=== PATIENT | female | born 1950 | race Caucasian/White ===

== ENCOUNTER → 2016-08-09 | Outpatient (CLI) | payer OTHER ==
[~2016-08-09] MED LIST: CALC600T9 PO; GEMF600T PO; LPT/40 PO; LSN/10125 PO; SOMNAPURE PO
[2016-08-09 09:35] LABS: BASO % 0.8 %; BASO ABS # 0.06 K/uL (0-0.2); COMPLETE YES; EOS % 4.3 %; HEMATOCRIT 37.9 % (37-47); IG% 0.3 %; LYMPH % 40.5 %; LYMPH ABS # 3.02 K/uL (1.2-3.4); MEAN CORPUSCULAR HEMOGLOBIN 32.1 pg (25-34); MEAN CORPUSCULAR HGB CONC 35.6 g/dl (32-36); MEAN PLATELET VOLUME 9.3 fL (7.4-10.4); MONO % 10.2 %; NEUT % 43.9 %; PLATELET COUNT 397 K/uL (130-400); RED BLOOD COUNT 4.21 M/uL (4.2-5.4); WHITE BLOOD COUNT 7.45 K/uL (4.8-10.8)
[2016-08-09 09:49] LABS: ALT/SGPT 49 U/L (12-78); AST/SGOT 34 U/L (15-37); BLOOD UREA NITROGEN 14 mg/dl (7-18); BUN/CREATININE RATIO 17.7 (10-20); CALCIUM 9.2 mg/dl (8.5-10.1); CARBON DIOXIDE 26 mmol/L (21-32); CHLORIDE 101 mmol/L (98-107); GLUCOSE 114 mg/dl (70-99); POTASSIUM 3.8 mmol/L (3.5-5.1); SODIUM 136 mmol/L (136-145)
[2016-08-09 09:53] LABS: CHOLESTEROL 181 mg/dl (0-200); CHOLESTEROL/HDL RATIO 2.7; HDL CHOLESTEROL 67 mg/dl; LDL CHOLESTEROL CALCULATED 86 mg/dl; TRIGLYCERIDES 141 mg/dl (0-150); VERY LOW DENSITY LIPOPROT CALC 28 mg/dl
[2016-08-09 10:08] LABS: ESTIMATED AVERAGE GLUCOSE 123 mg/dl; HA1C FLAG Normal (Normal)
--- NOTE | 2016-08-15 11:41 | CODING QUERY MEDICAL NECESSITY ---
SUPPORTING DIAGNOSIS NEEDED A supporting diagnosis is required for the test/procedure performed on this patient in order for us to be reimbursed by the patient's insurance. Please provide a supporting diagnosis for the following test/procedure listed below next to the test name along with your signature. *If there is no additional diagnosis for this patient that would support the following test/procedure please document that below next to the test/procedure. Test(s)/Procedure(s) that require a supporting diagnosis: DOS 08/09 * Hba1c DIAGNOSIS: Provider Signature: Date: Thank you Rosemarie Soria [facility] Information Management Once completed, please kindly fax back to [phone] For questions please call [phone]
== END | disposition home or self-care (01) ==
LOC: C.LAB1850 07:28
PROVIDERS: ATTEND Internal Medicine
DX: E78.5 Hyperlipidemia, unspecified (principal); R73.9 Hyperglycemia, unspecified

== ENCOUNTER → 2017-02-08 | Outpatient (CLI) | payer OTHER ==
[2017-02-08 09:36] LABS: BASO % 0.9 %; BASO ABS # 0.06 K/uL (0-0.2); COMPLETE YES; EOS % 4.4 %; IG% 0.2 %; LYMPH % 35.4 %; LYMPH ABS # 2.24 K/uL (1.2-3.4); MEAN CELL VOLUME 92.2 fL (80-100); MEAN CORPUSCULAR HEMOGLOBIN 31.1 pg (25-34); MEAN CORPUSCULAR HGB CONC 33.7 g/dl (32-36); MEAN PLATELET VOLUME 8.9 fL (7.4-10.4); NEUT % 47.1 %; PLATELET COUNT 367 K/uL (130-400); RED BLOOD COUNT 4.12 M/uL (4.2-5.4); WHITE BLOOD COUNT 6.33 K/uL (4.8-10.8)
[2017-02-08 09:47] LABS: ALT/SGPT 61 U/L (12-78); AST/SGOT 42 U/L (15-37); BLOOD UREA NITROGEN 11 mg/dl (7-18); BUN/CREATININE RATIO 15.4 (10-20); CALCIUM 8.9 mg/dl (8.5-10.1); CARBON DIOXIDE 25 mmol/L (21-32); CHLORIDE 103 mmol/L (98-107); CHOLESTEROL 197 mg/dl (0-200); GLUCOSE 101 mg/dl (70-99); POTASSIUM 3.6 mmol/L (3.5-5.1); SODIUM 138 mmol/L (136-145)
[2017-02-08 09:57] LABS: HDL CHOLESTEROL 65 mg/dl; LDL CHOLESTEROL CALCULATED 103 mg/dl; TRIGLYCERIDES 147 mg/dl (0-150); VERY LOW DENSITY LIPOPROT CALC 29 mg/dl
[2017-02-08 10:02] LABS: ESTIMATED AVERAGE GLUCOSE 128 mg/dl; HA1C FLAG Normal (Normal)
--- NOTE | 2017-02-14 10:28 | CODING QUERY MEDICAL NECESSITY ---
SUPPORTING DIAGNOSIS NEEDED Dr. Esparza, A supporting diagnosis is required for the test/procedure performed on this patient in order for us to be reimbursed by the patient's insurance. Please provide a supporting diagnosis for the following test/procedure listed below next to the test name along with your signature. *If there is no additional diagnosis for this patient that would support the following test/procedure please document that below next to the test/procedure. Test(s)/Procedure(s) that require a supporting diagnosis: * [id number] GLYCATED HEMOGLOBIN DIAGNOSIS: DATE OF SERVICE: 02/08/17 Provider Signature: Date: Thank you Iain Terry [facility] Information Management Once completed, please kindly fax back to [phone] For questions please call [phone]
== END | disposition home or self-care (01) ==
LOC: C.LAB1850 07:54
PROVIDERS: ATTEND Internal Medicine
DX: E78.5 Hyperlipidemia, unspecified (principal); R73.9 Hyperglycemia, unspecified

== ENCOUNTER → 2017-02-27 | Outpatient (CLI) | payer OTHER ==
--- NOTE | 2017-02-27 16:13 | MAMMOGRAPHY REPORT ---
BILATERAL DIGITAL SCREENING MAMMOGRAM TOMOSYNTHESIS WITH CAD: 02/27/2017 CLINICAL HISTORY: Routine screening. Patient has no complaints. TECHNIQUE: Breast tomosynthesis in addition to standard 2D mammography was performed. Current study was also evaluated with a Computer Aided Detection (CAD) system. COMPARISON: Comparison is made to exams dated: 11/13/2015 mammogram, 11/04/2015 mammogram, 09/24/2013 ma mmogram, 12/28/2011 mammogram, 02/22/2010 mammogram, and 03/14/2006 mammogram - [facility] ter. BREAST COMPOSITION: The tissue of both breasts is heterogeneously dense, which may obscure small mas ses. FINDINGS: No suspicious masses, calcifications, or areas of architectural distortion are noted in ei ther breast. There has been no significant interval change compared to prior exams. IMPRESSION: ACR BI-RADS CATEGORY 1: NEGATIVE There is no mammographic evidence of malignancy. A 1 year screening mammogram is recommended. The pa tient will receive written notification of the results. Approximately 10% of breast cancers are not detected with mammography. A negative mammographic report should not delay biopsy if a clinically suggestive mass is present. Sharron Raymond M.D. ah/:02/27/2017 15:33:42 Dry Wall Installations Mechanic: Opal PULLIAM(R)(M), [facility] letter sent: Normal 1/2 BI-RADS Code: ACR BI-RADS Category 1: Negative
== END | disposition home or self-care (01) ==
LOC: C.MAMM 11:27
PROVIDERS: ATTEND Obstetrics & Gynecology
DX: Z12.31 Encounter for screening mammogram for malignant neoplasm of breast (principal)

== ENCOUNTER → 2017-07-25 | Day surgery (SDC) | payer OTHER ==
[~2017-07-25] VITALS: Ht 165.1 cm; Wt 56.8 kg
[~2017-07-25] MED LIST changes: +LIDOCAINE HCL 2% 2 ML VIAL (20MG/ML) ONE; +PROPOFOL IV EMULSION 10 MG/ML 20 ML VIAL IV ONE; +SODIUM CHLORIDE 0.9% 500ML 500 ML IV ONE
[2017-07-25 09:22] VITALS: Ht 165.1 cm; Wt 56.8 kg
--- NOTE | 2017-07-25 10:24 | Endo History and Physical ---
History & Physical Date of Service: Jul 25, 2017. Chief Complaint: FAMILY HISTORY COLON CA BROTHER Referring Physician: DR. DORANTES History of Present Illness 66 yo CF who presents for colonoscopy secondary to family history of colon cancer (brother). Past Surgical History Hx Cardiac Surgery: No Hx Internal Defibrillator: No Hx Pacemaker: No Hx Abdominal Surgery: No Hx of Implantable Prosthesis: No Hx Post-Op Nausea and Vomiting: No Hx Cancer Surgery: No Hx Thoracic Surgery: No Hx Orthopedic: No Hx Urinary Tract Surgery: Yes (BLADDER TACK) Family History Colon CA Social History Smoking Status: Never Smoker Hx Substance Use: No Hx Alcohol Use: No Allergies Coded Allergies: No Known Allergies (Verified , 07/25/17) Current Medications Reported Home Medications Medications Dose Route/Sig Max Daily Dose Days Date Category [Somnapure] 1 Tab PO HS PRN 07/17/17 Reported Calcium + D (Calcium Carbonate-Vitamin D) 1 Tab Tab 1 Tab PO DAILY 07/17/17 Reported Lisinopril/Hctz 05/18.5 Mg (HCTZ/Lisinopril) 1 Ea Tab 1 Tab PO HS 07/17/17 Reported Lopid (Gemfibrozil) 600 Mg Tab 600 Mg PO BID 07/17/17 Reported Lipitor (Atorvastatin) 40 Mg Tab 40 Mg PO HS 07/17/17 Reported Vital Signs Weight (Kilograms): 56.82 Height (Feet): 5 Height (Inches): 5 Date Time Temp Pulse Resp B/P (MAP) Pulse Ox O2 Delivery O2 Flow Rate FiO2 07/25/17 09:30 36.8 85 16 149/77 (101) 98 Room Air Physical Exam General Appearance: WD/WN, no apparent distress Respiratory/Chest: Auscultation: breath sounds normal Cardiovascular: Heart Auscultation: RRR Abdomen: Bowel Sounds: normal Inspection & Palpation: soft, non-distended, no tenderness, guarding & rebound Assessment and Plan Assessment: 66 yo CF who presents for colonoscopy secondary to family history of colon cancer (brother). Plan: Proceed with colonoscopy.
--- NOTE | 2017-07-25 11:07 | GI REPORT ---
Procedure Date: 07/25/2017 10:29 AM Procedure: Colonoscopy Indications: Family history of colon cancer in a first-degree relative Medicines: Monitored Anesthesia Care Complications: No immediate complications. Estimated Blood Loss: Estimated blood loss: none. Procedure: Pre-Anesthesia Assessment: - Prior to the procedure, a History and Physical was performed, and patient medications and allergies were reviewed. The patient's tolerance of previous anesthesia was also reviewed. The risks and benefits of the procedure and the sedation options and risks were discussed with the patient. All questions were answered, and informed consent was obtained. Prior Anticoagulants: The patient has taken no previous anticoagulant or antiplatelet agents. ASA Grade Assessment: II - A patient with mild systemic disease. After reviewing the risks and benefits, the patient was deemed in satisfactory condition to undergo the procedure. After I obtained informed consent, the scope was passed under direct vision. Throughout the procedure, the patient's blood pressure, pulse, and oxygen saturations were monitored continuously. The scope was introduced through the anus and advanced to the terminal ileum. The colonoscopy was performed without difficulty. The patient tolerated the procedure well. The quality of the bowel preparation was good. The terminal ileum, ileocecal valve, appendiceal orifice, and rectum were photographed. Findings: The perianal and digital rectal examinations were normal. A 4 mm polyp was found in the sigmoid colon. The polyp was sessile. The polyp was removed with a hot snare. Resection and retrieval were complete. Non-bleeding internal hemorrhoids were found during retroflexion. The hemorrhoids were small. Impression: - One 4 mm polyp in the sigmoid colon, removed with a hot snare. Resected and retrieved. - Non-bleeding internal hemorrhoids. Recommendation: - Resume previous diet. - Continue present medications. - Repeat colonoscopy for surveillance based on pathology results. - Return to primary care physician as previously scheduled. Alexandru Wilder DO 07/25/2017 11:07:13 AM This report has been signed electronically. Note Initiated On: 07/25/2017 10:29 AM I attest to the content of the Intraoperative Record and orders documented therein, exceptions below
--- NOTE | 2017-07-25 11:08 | Discharge Instructions ---
Endoscopy Patient Instructions Date / Procedure(s) Performed Jul 25, 2017. Colonoscopy Allergy Information Coded Allergies: No Known Allergies (Verified , 07/25/17) Discharge Date / Findings Jul 25, 2017. Colon polyp Internal hemorrhoids Medication Instructions OK to resume all medications today as prescribed Reported Home Medications Medications Dose Route/Sig Max Daily Dose Days Date Category [Somnapure] 1 Tab PO HS PRN 07/17/17 Reported Calcium + D (Calcium Carbonate-Vitamin D) 1 Tab Tab 1 Tab PO DAILY 07/17/17 Reported Lisinopril/Hctz 05/18.5 Mg (HCTZ/Lisinopril) 1 Ea Tab 1 Tab PO HS 07/17/17 Reported Lopid (Gemfibrozil) 600 Mg Tab 600 Mg PO BID 07/17/17 Reported Lipitor (Atorvastatin) 40 Mg Tab 40 Mg PO HS 07/17/17 Reported Provider Instructions Activity Restrictions - No exercising or heavy lifting for 24 hours. - Do not drink alcohol the day of the procedure. - Do not drive a car or operate machinery until the day after the procedure. - Do not make any important decisions or sign important papers in 24 hours after the procedure. Following Day: - Return to full activity which may include returning to work/school. Diet Start your diet with liquids and light foods (jello, soup, juice, toast). Then eat your usual diet if not nauseated. Treatment For Common After Affects For mild abdominal pain, bloating, or excessive gas: - Rest - Eat lightly - Lie on right side Follow-Up Information Follow-up with DR. DORANTES as scheduled Anesthesia Information What You Should Know You have had a procedure that required some medicine to reduce anxiety and discomfort. This treatment is called moderate sedation. After receiving the treatment, you may be sleepy, but you will be able to breathe on your own. The effects of the treatment may last for several hours. Follow these instructions along with Activity/Diet recommendations noted above: * Do NOT do anything where dizziness or clumsiness would be dangerous. * Rest quietly at home today, then you can be up and about tomorrow. * Have a responsible person stay with you the rest of today. * You may have had an I.V. today. If so, you may take the dressing off later today. Recommendations Call your doctor if: * Trouble breathing * Continuous vomiting for more than 24 hours * Temperature above 101 degrees * Severe abdominal pain or bloating * Pain not relieved by pain medicine ordered * There is increased drainage or redness from any incision * A large amount of rectal bleeding greater than 2-3 tablespoons. (If you had a polyp/s removed or have hemorrhoids, a small amount of blood - from the rectum is to be expected.) * You have any unanswered questions or concerns. IN THE EVENT OF A SERIOUS EMERGENCY, GO TO THE NEAREST EMERGENCY ROOM Your discharge instructions were prepared by provider Alexandru Wilder. Patient Instructions Signature Page Keesha Anna Patient (or Guardian) Signature/Date: I have read and understand the instructions given to me by my caregivers. Caregiver/RN/Doctor Signature/Date: The above-named patient and/or guardian has received patient instructions on this date. + Original Patient Signature Page (only) stays with chart. Please make copy for patient.
[2017-07-25 11:25] VITALS: BP 152/88; PULSE 81; O2SAT 100
--- NOTE | 2017-07-25 11:33 | Anesthesiology Progress Note ---
Anesthesia Post Op Note Date & Time Jul 25, 2017 at 11:33 Vital Signs Pain Intensity: 0 Vital Signs Past 12 Hours Date Time Temp Pulse Resp B/P (MAP) Pulse Ox O2 Delivery O2 Flow Rate FiO2 07/25/17 11:25 81 20 152/88 (109) 100 Room Air 07/25/17 11:10 81 20 139/75 (96) 100 Room Air 07/25/17 10:57 80 18 120/56 (77) 100 Room Air 07/25/17 09:30 36.8 85 16 149/77 (101) 98 Room Air Notes Mental Status: alert / awake / arousable, participated in evaluation Pt Amnestic to Procedure: Yes Nausea / Vomiting: adequately controlled Pain: adequately controlled Airway Patency, RR, SpO2: stable & adequate BP & HR: stable & adequate Hydration State: stable & adequate Anesthetic Complications: no major complications apparent
== END | disposition home or self-care (01) ==
LOC: C.GI 09:04
PROVIDERS: ATTEND Internal Medicine
DX: Z12.11 Encounter for screening for malignant neoplasm of colon (principal); Z83.71 Family history of colonic polyps; D12.5 Benign neoplasm of sigmoid colon; K64.8 Other hemorrhoids; Z80.0 Family history of malignant neoplasm of digestive organs; I10 Essential (primary) hypertension; E78.5 Hyperlipidemia, unspecified; E11.9 Type 2 diabetes mellitus without complications; F41.9 Anxiety disorder, unspecified; F32.9 Major depressive disorder, single episode, unspecified

== ENCOUNTER → 2017-08-22 | Outpatient (CLI) | payer OTHER ==
[~2017-08-22] MED LIST changes: -LIDOCAINE HCL 2% 2 ML VIAL (20MG/ML) ONE; -PROPOFOL IV EMULSION 10 MG/ML 20 ML VIAL IV ONE; -SODIUM CHLORIDE 0.9% 500ML 500 ML IV ONE
[2017-08-22 09:46] LABS: BASO % 0.6 %; BASO ABS # 0.05 K/uL (0-0.2); EOS % 1.5 %; EOS ABS # 0.12 K/uL (0-0.5); HEMATOCRIT 40.7 % (37-47); HEMOGLOBIN 13.7 g/dL (12.0-16.0); IG# 0.04 K/uL (0.00-0.02); LYMPH % 30.1 %; MEAN CELL VOLUME 92.7 fL (80-100); MEAN CORPUSCULAR HEMOGLOBIN 31.2 pg (25-34); MEAN CORPUSCULAR HGB CONC 33.7 g/dl (32-36); MEAN PLATELET VOLUME 9.3 fL (7.4-10.4); MONO % 11.5 %; MONO ABS # 0.92 K/uL (0.11-0.59); NEUT % 55.8 %; NEUT ABS # 4.45 K/uL (1.4-6.5); PLATELET COUNT 424 K/uL (130-400); RED CELL DISTRIBUTION WIDTH CV 12.5 % (11.5-14.5); RED CELL DISTRIBUTION WIDTH SD 42.3 fL (36.4-46.3); WHITE BLOOD COUNT 7.98 K/uL (4.8-10.8)
[2017-08-22 10:04] LABS: ALT/SGPT 48 U/L (12-78); AST/SGOT 39 U/L (15-37); BLOOD UREA NITROGEN 17 mg/dl (7-18); CALCIUM 9.8 mg/dl (8.5-10.1); CARBON DIOXIDE 25 mmol/L (21-32); CHOLESTEROL 183 mg/dl (0-200); CREATININE 0.67 mg/dl (0.60-1.20); GLUCOSE 119 mg/dl (70-99); SODIUM 135 mmol/L (136-145)
[2017-08-22 10:07] LABS: HEMOGLOBIN A1C 5.8 % (4.5-5.6); LDL CHOLESTEROL CALCULATED 91 mg/dl
== END | disposition home or self-care (01) ==
LOC: C.LAB1850 08:17
PROVIDERS: ATTEND Internal Medicine
DX: E78.5 Hyperlipidemia, unspecified (principal)

== ENCOUNTER → 2018-02-23 | Outpatient (CLI) | payer OTHER ==
[2018-02-23 09:29] LABS: BASO % 1.2 %; BASO ABS # 0.08 K/uL (0-0.2); EOS % 3.2 %; EOS ABS # 0.22 K/uL (0-0.5); HEMATOCRIT 36.3 % (37-47); HEMOGLOBIN 12.7 g/dL (12.0-16.0); IG# 0.02 K/uL (0.00-0.02); LYMPH % 26.7 %; LYMPH ABS # 1.85 K/uL (1.2-3.4); MEAN CELL VOLUME 89.2 fL (80-100); MEAN CORPUSCULAR HEMOGLOBIN 31.2 pg (25-34); MEAN PLATELET VOLUME 8.7 fL (7.4-10.4); MONO ABS # 0.76 K/uL (0.11-0.59); NEUT % 57.6 %; NEUT ABS # 3.99 K/uL (1.4-6.5); PLATELET COUNT 414 K/uL (130-400); RED CELL DISTRIBUTION WIDTH CV 12.7 % (11.5-14.5); RED CELL DISTRIBUTION WIDTH SD 41.1 fL (36.4-46.3); WHITE BLOOD COUNT 6.92 K/uL (4.8-10.8)
[2018-02-23 09:53] LABS: ALT/SGPT 47 U/L (12-78); AST/SGOT 36 U/L (15-37); BLOOD UREA NITROGEN 15 mg/dl (7-18); CALCIUM 9.1 mg/dl (8.5-10.1); CARBON DIOXIDE 27 mmol/L (21-32); CHOLESTEROL 137 mg/dl (0-200); CREATININE 0.69 mg/dl (0.60-1.20); GLUCOSE 101 mg/dl (70-99); LDL CHOLESTEROL CALCULATED 63 mg/dl; POTASSIUM 3.4 mmol/L (3.5-5.1); SODIUM 131 mmol/L (136-145)
[2018-02-23 10:25] LABS: HEMOGLOBIN A1C 5.8 % (4.5-5.6)
== END | disposition home or self-care (01) ==
LOC: C.LAB1850 07:20
PROVIDERS: ATTEND Internal Medicine
DX: E78.5 Hyperlipidemia, unspecified (principal)

== ENCOUNTER → 2018-03-14 | Outpatient (CLI) | payer OTHER ==
--- NOTE | 2018-03-14 13:38 | MAMMOGRAPHY REPORT ---
BILATERAL DIGITAL SCREENING MAMMOGRAM TOMOSYNTHESIS WITH CAD: 03/14/2018 CLINICAL HISTORY: Routine screening. Patient has no complaints. TECHNIQUE: The study was acquired using full field digital technology and interpreted from soft copy. Breast tomosynthesis in addition to standard 2D mammography was performed. Current study was also ev aluated with a Computer Aided Detection (CAD) system. COMPARISON: Comparison is made to exams dated: 02/27/2017 mammogram, 11/13/2015 mammogram, 11/04/2015 ma mmogram, 11/13/2015 ultrasound, 09/24/2013 mammogram, and 12/28/2011 mammogram - [facility]. BREAST COMPOSITION: The tissue of both breasts is heterogeneously dense, which may obscure small mass es. FINDINGS: There is a 5 mm nodular asymmetry in the inferior middle one third of the right breast on t he MLO view, thought to project immediately on the CC view. A 10 mm asymmetry in the lateral, middle one third of the right breast thought to project below the posterior nipple line on the MLO view. S pot compression tomosynthesis views and possible ultrasound are recommended for both asymmetries in t he right breast. There are a few scattered benign round and rim calcifications in the right breast. No other suspiciou s mass, asymmetry architectural distortion or cluster of microcalcifications is seen bilaterally. IMPRESSION: ACR BI-RADS CATEGORY 0: INCOMPLETE EVALUATION: NEED ADDITIONAL IMAGING EVALUATION The right breast asymmetries need additional imaging evaluation. The patient will be called to schedule an appointment. Some breast cancers are not detected with mammography. A negative mammographic report should not ebony y biopsy if a clinically suggestive mass is present. Ermelinda Shanks M.D. ay/:03/14/2018 10:57:27 Manufacturing Laborer: RT Madisyn(R)(M), [facility] letter sent: Addl Imaging 0 BI-RADS Code: ACR BI-RADS Category 0: Incomplete Evaluation: Need Additional Imaging Evaluation
== END | disposition home or self-care (01) ==
LOC: C.MAMM 09:47
PROVIDERS: ATTEND Obstetrics & Gynecology
DX: Z12.31 Encounter for screening mammogram for malignant neoplasm of breast (principal); R92.8 Other abnormal and inconclusive findings on diagnostic imaging of breast

== ENCOUNTER → 2018-03-21 | Outpatient (CLI) | payer OTHER ==
--- NOTE | 2018-03-22 15:42 | MAMMOGRAPHY REPORT ---
UNILATERAL RIGHT DIGITAL DIAGNOSTIC MAMMOGRAM TOMOSYNTHESIS AND TARGETED RIGHT ULTRASOUND: 03/21/2018 CLINICAL HISTORY: 67-year-old woman called back from screening mammography for right breast nodular a symmetries. TECHNIQUE: Spot compression tomosynthesis right CC and MLO views were obtained. COMPARISON: Comparison is made to exams dated: 03/14/2018 mammogram, 02/27/2017 mammogram, 11/13/2015 herbert mogram, 11/04/2015 mammogram, 12/28/2011 mammogram, and 02/22/2010 mammogram - [facility]. BREAST COMPOSITION: There are scattered areas of fibroglandular density in right breast. FINDINGS: The spot compression tomosynthesis views of the right breast demonstrate a U-shaped partial ly circumscribed 10 mm mass in the upper outer middle one third of the right breast. There is a gent ly lobulated circumscribed 4.6 mm mass in the lower inner approximate 4:00 to 5:00 right breast, and a possible third partially circumscribed mass in the middle one third of the right breast along the p osterior nipple line on the spot compression MLO view. There is no evidence of architectural distort ion, spiculation or suspicious calcification. Further evaluation with ultrasound was performed. Targeted ultrasound was performed in the right breast inferior aspect and also the retroareolar, 2:00 and 10:00 axes. Scattered benign-appearing cysts are identified, with an anechoic simple cyst in th e 4:00 right breast, 2 cm from the nipple measuring 3.2 x 1.6 x 3.8 mm. A circumscribed rounded hypo echoic solid versus cystic mass in the 5:00 right breast, 2 cm from the nipple, measures 4.2 x 2.7 x 3.6 mm. A U-shaped lobulated isoechoic to slightly hypoechoic and anechoic solid versus cystic mass is identified in the 9:00 right breast, 3 cm from the nipple, measuring 7.7 x 2.4 x 5.5 mm. Although these findings most likely all represent benign fibrocystic change, given that not all of the sonogr aphic masses represent simple cysts, a short interval follow-up targeted right breast ultrasound in t he 5:00 and 9:00 axes as well as repeat right tomosynthesis mammography is recommended to ensure stab ility in 6 months. IMPRESSION: ACR-BI-RADS CATEGORY 3: PROBABLY BENIGN, ULTRASOUND ACR-BI-RADS CATEGORY 3: PROBABLY ROCAEL GN 1. Nodularity in the right breast medial, lateral and inferior aspect most likely correspond to a be nign cyst/fibrocystic change on ultrasound. The masses identified in the right breast at 5:00 and 9: 00 do not fit the criteria for benign simple cysts and therefore a short interval follow-up targeted right breast ultrasound and repeat right tomosynthesis mammography is recommended to ensure stability in 6 months. These results and recommendations were discussed with the patient at the time of the exam. Some breast cancers are not detected with mammography. A negative mammographic report should not ebony y biopsy if a clinically suggestive mass is present. Ermelinda Shanks M.D. ay/:03/21/2018 17:00:05 Therapy Teacher: Mariluz Andrade, [facility]; Ermelinda Shanks, [facility] letter sent: Follow Up Recommended 3 OVERALL STUDY BIRADS: 3 Probably benign
== END | disposition home or self-care (01) ==
LOC: C.MAMM 13:13
PROVIDERS: ATTEND Obstetrics & Gynecology
DX: N63.11 Unspecified lump in the right breast, upper outer quadrant (principal); N63.14 Unspecified lump in the right breast, lower inner quadrant

== ENCOUNTER 2018-12-26 00:55 | Inpatient (IN) ==
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
[2018-12-26] MEDS ORDERED: MoRPHine SULFATE 4 MG/ML 1 ML CARP\\VIAL IV STA (01:17)
[2018-12-26] MEDS ORDERED: ONDANSETRON INJ 2 MG/ML 2 ML VIAL IV STA (01:17)
[2018-12-26] MEDS ORDERED: SODIUM CHLORIDE 0.9% 1000ML 1,000 ML IV SCH (01:30)
[2018-12-26 01:32] LABS: Basophils # (auto) 0.03 K/uL (0-0.2); Basophils % (auto) 0.2 %; Hematocrit (blood only) 37.3 % (37-47); Hemoglobin 13.5 g/dL (12.0-16.0); Immature Granulocytes # (auto) 0.03 K/uL (0.00-0.02); Immature Granulocytes % (auto) 0.2 %; Lymphocytes % (auto) 5.8 %; Mean Corpuscular Hgb Conc 36.2 g/dL (32-36); Mean Corpuscular Volume 86.5 fL (80-100); Mean Platelet Volume 8.7 fL (7.4-10.4); Monocytes # (auto) 0.79 K/uL (0.11-0.59); Monocytes % (auto) 5.7 %; Neutrophils # (auto) 12.15 K/uL (1.4-6.5); Neutrophils % (auto) 88.1 %; Platelet Count 431 K/uL (130-400); RDW Coefficient of Variation 12.6 % (11.5-14.5); RDW Standard Deviation 40.5 fL (36.4-46.3); Red Blood Count 4.31 M/uL (4.2-5.4)
[2018-12-26 01:50] LABS: Alanine Aminotransferase 37 U/L (12-78); Albumin Level 4.7 gm/dl (3.4-5.0); Aspartate Aminotransferase 31 U/L (15-37); BUN Creatinine Ratio 20.7 (10-20); Blood Urea Nitrogen 15 mg/dl (7-18); Calcium 9.3 mg/dl (8.5-10.1); Carbon Dioxide 25 mmol/L (21-32); Chloride 95 mmol/L (98-107); Est GFR (African American) 96.5; Est GFR (Non-African American) 83.2; Glucose 186 mg/dl (70-99); Potassium 3.7 mmol/L (3.5-5.1); Sodium 130 mmol/L (136-145)
[2018-12-26 01:55] LABS: Albumin Globulin Ratio 1.3 (0.9-2); Alkaline Phosphatase 115 U/L (45-117); Bilirubin,Total 0.5 mg/dl (0.2-1); Globulin 3.5 gm/dl (2.5-4.0); Total Protein 8.2 gm/dl (6.4-8.2); Troponin I < 0.015 ng/ml (0-0.045)
[2018-12-26] MEDS ORDERED: OPTIRAY 320 125ml IV PRN (01:59)
[2018-12-26] MEDS ORDERED: HYDROmorphone INJ 0.5 MG/0.5 ML SYR IV PRN (02:51)
[2018-12-26] MEDS ORDERED: ONDANSETRON INJ 2 MG/ML 2 ML VIAL IV PRN (02:51)
--- NOTE | 2018-12-26 02:54 | History & Physical Report ---
Date of Service December 26, 2018 Assessment & Plan (1) SBO (small bowel obstruction): 68 y/o F Hx HLD, HTN. Presenting with abdominal pain, nausea and vomiting x 1 day. She denies fevers, constipation or diarrhea. A CT of the abdomen demonstrated an SBO. Labs are notable for hyponatremia, hyperglycemia and an elevated lactic. A UA is equivocal. She does not have urinary symptoms. 1) SBO - NPO, IVF, surgical consult. Does not want an NGT presently although we may have to place one if she does not show improvement. Etiology is not clear as she has not had abdominal surgery previously and no discrete mass is seen. 2) Hyponatremia - likely due to vomiting, however, she has had mild hyponatremia in the past. She takes HCTZ/Lisinopril dialy. Maybe HCTZ should be reconsidered. IVF provided and we will trend her BMP. 3) Hyperglycemia - no history of DM. Number is high for a stress reaction. We will check an A1C AM. 4) Equivocal UA - she states she had frequent UAs until she began taking cranberry. She does not have symptoms so that we will avoid antibiotics for now. 5) HTN - PRN Hydralazine provided - may need to substitute her HCTZ due to hyponatremia as above. 6) HLD - statin held while NPO Full code - Heparin prophylaxis Total time for this admit including review of labs, meds, imaging, records - discussion with pt and ER attending - 37 min Present on Admission?: Yes History of Present Illness Chief Complaint: Abdominal pain, nausea, vomiting Primary Care Provider: Austen Esparza MD 68 y/o F Hx HLD, HTN. Presenting with abdominal pain, nausea and vomiting x 1 day. She denies fevers, constipation or diarrhea. A CT of the abdomen demonstrated an SBO. Labs are notable for hyponatremia, hyperglycemia and an elevated lactic. A UA is equivocal. She does not have urinary symptoms. PMH: 1) HTN 2) HLD Surgical: Limited to a bladder lift Social: Does not smoke or drink Family: 3 uncles and an aunt with history of pancreatic CA Mother due to lung CA Allergies Allergy/AdvReac Type Severity Reaction Status Date / Time No Known Allergies Allergy Verified 07/25/17 09:16 Home Medications Home Medications Medication Instructions Recorded Confirmed Type atorvastatin 40 mg PO HS 12/26/18 12/26/18 History calcium carbonate-vitamin D3 1 tab PO DAILY 12/26/18 12/26/18 History [Calcium 500 + D] gemfibrozil 600 mg PO BID 12/26/18 12/26/18 History lisinopril-hydrochlorothiazide 1 tab PO DAILY 12/26/18 12/26/18 History Past Med/Surg History Medical History No chronic problems Family History Other No significant family history Social History Feels Safe at Home: Yes Smoking Status: Never smoker Review of Systems Review of Systems: Gen: Denies fevers, night sweats, rigors, fatigue, malaise, weight loss/gain ENT: Denies congestion, throat pain, hearing loss Eyes: Denies acute visual changes CV: Denies CP, palpitations Pulmonary: Denies SOB, cough, wheezing GI: Nausea, vomiting and abdominal pain as above Neuro: Denies acute or unilateral weakness, acute gait impairment, headache or acute visual changes Musculoskeletal: Denies joint pain, inflammation Endocrine: Denies polydipsia, polyuria Skin: Denies acute rashes or ulcers Physical Exam 2 Physical Exam: General: AAO x 3, no distress ENT: No erythema or exudates, no thrush Eyes: FAVIOLA, EOMI Head and neck: Normocephalic, atraumatic, No JVD, neck is supple. Chest/heart: Nontender, S1,2, RRR, no murmurs, no gallops Lungs: CTAB, no wheezing or crackles Abdomen: Mild distention, diffuse, mild pain to palpation, bowel sounds are barely discernable. Neuro: AAO x 3, speech is clear, no unilateral weakness or loss of sensation, coordination intact Musculoskeletal: No joint inflammation, muscle tenderness, FROM Skin: No acute rashes or ulcers Extremities: No clubbing, cyanosis, edema Results & Data Vital Signs (Past 12 Hours) Vital Signs Temp Pulse Pulse Resp BP BP Pulse Ox 12/26/18 02:37 113 H 18 143/77 H 98 12/26/18 02:11 111 H 16 145/74 H 96 12/26/18 01:35 111 H 19 135/59 L 95 12/26/18 00:59 97.5 F L 118 H 18 148/80 H [address] abdomen: SBO EKG: Sinus tach
[2018-12-26] MEDS: LACTATED RINGER'S 1,000 ML IV SCH ×2 (04:44→12:56)
[2018-12-26] MEDS: ACETAMINOPHEN 1,000 MG/100 ML VIAL IV PRN ×2 (04:44→17:34)
[2018-12-26 05:03] LABS: iSTAT Hemoglobin 13.6 g/dl (12.0-16.0); iSTAT Ionized Calcium 1.05 mmol/l (1.12-1.32)
[2018-12-26 05:53] LABS: Appearance Urine Clear (Clear); Bacteria Urine Automated Negative (Negative); Bilirubin Urine Negative (Negative); Color Urine Yellow; Epithelial Cell Urine Auto >30 /lpf (0-5); Glucose Urine UA Negative (Negative); Ketones Urine 1+ (Negative); Leukocyte Esterase Urine Negative (Negative); Nitrite Urine Negative (Negative); Protein Urine Negative (Negative); Specific Gravity Urine > 1.045 (1.000-1.030); Urobilinogen Urine Negative (Negative); pH Urine 7.5 (4.5-7.5)
[2018-12-26 06:11] LABS: Basophils # (auto) 0.01 K/uL (0-0.2); Basophils % (auto) 0.1 %; Hematocrit (blood only) 32.9 % (37-47); Hemoglobin 11.6 g/dL (12.0-16.0); Immature Granulocytes # (auto) 0.03 K/uL (0.00-0.02); Immature Granulocytes % (auto) 0.3 %; Lymphocytes # (auto) 1.07 K/uL (1.2-3.4); Lymphocytes % (auto) 11.6 %; Mean Corpuscular Hgb Conc 35.3 g/dL (32-36); Mean Platelet Volume 8.4 fL (7.4-10.4); Monocytes # (auto) 0.56 K/uL (0.11-0.59); Monocytes % (auto) 6.1 %; Neutrophils # (auto) 7.52 K/uL (1.4-6.5); Neutrophils % (auto) 81.9 %; Platelet Count 379 K/uL (130-400); RDW Coefficient of Variation 12.7 % (11.5-14.5); RDW Standard Deviation 40.9 fL (36.4-46.3); Red Blood Count 3.78 M/uL (4.2-5.4); White Blood Count 9.19 K/uL (4.8-10.8)
[2018-12-26 06:20] LABS: Prothrombin Time 10.3 Seconds (9.0-12.0)
[2018-12-26 06:34] LABS: BUN Creatinine Ratio 19.8 (10-20); Calcium 8.5 mg/dl (8.5-10.1); Est GFR (African American) 106.3; Est GFR (Non-African American) 91.7; Potassium 3.7 mmol/L (3.5-5.1)
[2018-12-26 07:04] LABS: Estimated Average Glucose 120 mg/dl
--- NOTE | 2018-12-26 07:12 | CT Scan Report ---
CT angio abd pelvis wo/w con HISTORY: abd pain radiating into back TECHNIQUE: Multiaxial CT images of the abdomen and pelvis were performed both before and after the in travenous administration of contrast to evaluate the major arterial structures. Maximal intensity pro jection images were also obtained. COMPARISON STUDY: None. FINDINGS: A 6 mm nodule within the base of the right lower lobe on image 8. A 3 mm nodule within the left lower lobe on image 9. Small hiatus hernia. No pneumoperitoneum. No pneumatosis. No suspicious l ytic or blastic osseous lesions. Hepatic steatosis. A 2.2 cm hypervascular focus seen within the anders phery of the anterior segment of the right hepatic lobe. The spleen, adrenal glands, pancreas, gallbl adder, and kidneys are unremarkable. No renal or ureteral stones. No hydronephrosis. A 3 mm hypodense lesion within the lower pole of the left kidney is technically too small to characterize but favors a cyst. No retroperitoneal lymphadenopathy. The bladder is not well-distended but appears unremarkabl e. The uterus and bilateral adnexa are within normal limits. The colon is mostly decompressed. The ap pendix is not identified with certainty. Dilated and fluid-filled loops of mid to distal small bowel with a focal transition point in the deep pelvis at the distal ileum. The transition point is best se en on image 341. Proximal to this transition point the bowel is dilated up to 3.8 cm. Therefore, this is consistent with a small bowel obstruction. The terminal ileum is decompressed. The decompressed t erminal ileum appears hyperemic without definite bowel wall thickening. The abdominal aorta, celiac artery, mesenteric arteries, renal arteries, and iliac arteries are widel y patent. No dissection identified. IMPRESSION: 1. Small bowel obstruction with focal transition point within the deep pelvis at the distal ileum. Th e terminal ileum is hyperemic and decompressed. Follow-up recommended to exclude the possibility of a n underlying small bowel mass. 2. No significant stenosis or dissection within the abdominal arteries. 3. A 2.2 cm hypervascular focus within the periphery of the anterior segment of the right hepatic lob e. This is indeterminate but could represent focal nodular hyperplasia, flash filling hemangioma, or transient hepatic attenuation difference. 4. Subcentimeter indeterminate pulmonary nodules with the largest in the right lower lobe measuring 6 mm. Please refer to the chart below for recommended follow-up. Please refer to below summary of Fleischner criteria recommendations for follow-up of incidental CT n odules (Cuong Baker, Guidelines for management of small pulmonary nodules detected on CT scans: A aj nicole from the Fleischner Society, Radiology 237: [id number].) SOLID NODULES Solitary nodule size: <6 mm * Low risk patients: no follow-up needed * high risk patients: optional CT at 12 months Solitary nodule size: 6-8 mm * Low risk patients: follow-up at 6-12 months, then consider further follow-up at 18-24 months * high risk patients: initial follow-up CT at 6-12 months and then at 18-24 months if no change Solitary nodule size: >8 mm * either low or high risk patients - consider follow-up CT at 3 months, and/or CT-PET, and/or biopsy Multiple nodules size: <6 mm * Low risk patients: no routine follow-up * high risk patients: optional CT at 12 months Multiple nodules size: 6-8 mm * Low risk patients: follow-up at 3-6 months, then consider further follow-up at 18-24 months * high risk patients: follow-up at 3-6 months, then at 18-24 months if no change Multiple nodules size: >8 mm * Low risk patients: follow-up at 3-6 months, then consider further follow-up at 18-24 months * high risk patients: follow-up at 3-6 months, then at 18-24 months if no change Note: newly detected indeterminate nodule in persons 35 years of age or older. * Low risk patients: minimal or absent history of smoking and/or other known risk factors * high risk patients: history of smoking or of other known risk factors (e.g. first degree relative with lung cancer, or exposure to asbestos, radon, uranium) * if a nodule up to 8 mm is partly solid or is ground glass further follow-up is required after 24 m onths to exclude possible slow growing adenocarcinoma (LAURA) SUBSOLID NODULES Solitary pure ground-glass nodule * nodule size <6 mm - no CT follow-up required * nodule size >=6 mm - follow-up CT at 6-12 months, then every 2 years until 5 years Solitary part-solid nodule * nodule size <6 mm - no CT follow-up required * nodule size >=6 mm - follow-up CT at 3-6 months. If unchanged, and solid component remains <6 mm, then annual follow-up for 5 years Multiple subsolid nodules * nodule size <6 mm - follow-up CT at 3-6 months, consider further follow-up at 2 and 4 years if sta ble * nodule size >=6 mm - follow-up CT at 3-6 months, subsequent management based on the most suspiciou s nodule(s) Electronically signed by: Nathan Hernandez M.D. 12/26/2018 7:10 AM
[2018-12-26] MEDS: HEPARIN SOD 5,000 UNIT/0.5 ML VIAL SQ SCH ×3 (09:15→22:13)
--- NOTE | 2018-12-26 09:55 | Surgery Consultation ---
Date of Consultation December 26, 2018 Assessment & Plan (1) SBO (small bowel obstruction): 68 year-old female who presented to emergency department with 1 day history of abdominal pain, nausea, and vomiting found to have SBO on CT scan of abdomen and pelvis with possible transition in the distal Ileum and hyperemia of the terminal ileum. Prior tubal ligation, no other abdominal surgeries. Abdomen is soft, mildly tender, nondistended. Plan: continue conservative treatment for now: Bowel rest, IV fluids, IV pain management as needed, IV Zofran as needed. Encouraged continued ambulation. Will need further small bowel evaluation given hyperemia of the terminal ileum once through this acute phase. Colonoscopy would be best once able to be prepped. Continue medical management will follow along Dr. Self has seen and examined pt, agrees with above. Supervising Physician Co-Signing Physician Notes I interviewed and examined this patient and I agree with the above note. I reviewed her CT scan with the radiologist. She has evidence of a small bowel obstruction but is already passing some flatus. I think conservative management would be in order. I explained that this may not be successful and may require surgical intervention. She understands all of that. History of Present Illness Reason for Consultation: SBO Requesting Physician: Hubert Bridges MD Attending Physician: Hubert Bridges MD History of Present Illness Keesha is a 68 year-old female who presented to emergency department with complaint of abdominal pain, nausea, and vomiting that began on Monday. States she had sudden abdominal cramping and bloating which then led to vomiting and dry heaves. Thought maybe she caught a stomach bug. States she had chills but no fever. Had normal bowel movement yesterday morning. Never had this type of pain before. States she had a bladder lift procedure and tubal ligation. Er work-up included labs which showed leukocytosis of 13K. CT angio of abdomen and pelvis showed dilated small bowel with transition point in the deep pelvis and distal Ileum. Terminal ileum with some hyperemia. Today, Keesha states she is feeling better. Abdominal pain is much improved. Passing some gas but no bowel movement yet. Walking the hallways. 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[employer] 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 Required: No Beliefs That Will Affect Care: None Current Living Situation: Spouse Feels Safe at Home: Yes Safety Concerns: Feels Safe At This Time Smoking Status: Never smoker Hx Alcohol Use: Yes Alcohol type: wine Hx Substance Use: No Physical Exam Constitutional: WD/WN, vitals as above no acute distress and not ill appearing Respiratory: normal respiratory effort, lungs clear to auscultation Cardiovascular: RRR, no murmur, no edema Gastrointestinal (Abdomen): Inspection/Auscultation: abdomen normal to inspection; abdomen not distended Percussion/Palpation: + abdomen tender (Right lower and upper abdomen) and abdomen soft; no guarding and abdomen not rigid Skin: no rashes, warm and dry Psychiatric: A+Ox3, euthymic affect Results & Data Vital Signs (Past 12 Hours) Vital Signs Temp Pulse Pulse Resp BP BP Pulse Ox 12/26/18 07:45 36.7 C 90 12 122/64 96 12/26/18 02:37 113 H 18 143/77 H 98 12/26/18 02:11 111 H 16 145/74 H 96 12/26/18 01:35 111 H 19 135/59 L 95 12/26/18 00:59 36.4 C L 118 H 18 148/80 H 97 Laboratory Results 12/26/18 12/26/18 12/26/18 Range/Units 06:04 06:04 06:04 WBC (4.8-10.8) K/uL RBC (4.2-5.4) M/uL Hgb (12.0-16.0) g/dL POC Hgb (12.0-16.0) g/dl Hct (37-47) % POC Hct (37-47) % MCV (80-100) fL MCH (25-34) pg MCHC (32-36) g/dL RDW Std Deviation (36.4-46.3) fL RDW Coeff of Taniya (11.5-14.5) % Plt Count (130-400) K/uL MPV (7.4-10.4) fL Immature Gran % (Auto) % Neut % (Auto) % Lymph % (Auto) % [place] % (Auto) % Eos % (Auto) % Baso % (Auto) % Immature Gran # (Auto) (0.00-0.02) K/uL Neut # (Auto) (1.4-6.5) K/uL Lymph # (Auto) (1.2-3.4) K/uL [place] # (Auto) (0.11-0.59) K/uL Eos # (Auto) (0-0.5) K/uL Baso # (Auto) (0-0.2) K/uL PT (9.0-12.0) Seconds INR (0.9-1.1) POC Sodium (135-144) mEq/L Sodium 133 L (136-145) mmol/L POC Potassium (3.3-5.0) mEq/L Potassium 3.7 (3.5-5.1) mmol/L POC Chloride (101-112) mEq/L Chloride 99 (98-107) mmol/L Carbon Dioxide 26 (21-32) mmol/L POC Total CO2 (24-31) mEq/l Anion Gap 8.0 (3-11) POC Anion Gap (16-25) mmol/L POC BUN (7-18) mg/dl BUN 13 (7-18) mg/dl Creatinine 0.64 (0.6-1.2) mg/dl POC Creatinine (0.6-1.3) mg/dl Est Cr Clr Drug Dosing 74.0 ml/min Est GFR ( Amer) 106.3 Est GFR (Non-Af Amer) 91.7 BUN/Creatinine Ratio 19.8 (10-20) Glucose 130 H (70-99) mg/dl POC Glucose (other) (70-99) mg/dl Estimat Average Glucose 120 mg/dl Hemoglobin A1c 5.8 H (4.5-5.6) % POC Lactic Acid Juan (0.90-1.70) mmol/L Lactate 1.0 (0.4-2.0) mmol/L Calcium 8.5 (8.5-10.1) mg/dl POC Ioniz Calcium Aliza (1.12-1.32) mmol/l Magnesium (1.8-2.4) mg/dl Total Bilirubin (0.2-1) mg/dl AST (15-37) U/L ALT (12-78) U/L Alkaline Phosphatase (45-117) U/L Troponin I (0-0.045) ng/ml Total Protein (6.4-8.2) gm/dl Albumin (3.4-5.0) gm/dl Globulin (2.5-4.0) gm/dl Albumin/Globulin Ratio (0.9-2) Lipase (73-393) U/L Urine Color Urine Appearance (Clear) Urine pH (4.5-7.5) Ur Specific [place] (1.000-1.030) Urine Protein (Negative) Urine Glucose (UA) (Negative) Urine Ketones (Negative) Urine Blood (Negative) Urine Nitrite (Negative) Urine Bilirubin (Negative) Urine Urobilinogen (Negative) Ur Leukocyte Esterase (Negative) Urine WBC (Auto) (0-5) /hpf Urine RBC (Auto) (0-4) /hpf U Hyaline Cast (Auto) (0-5) /lpf U Epithel Cells (Auto) (0-5) /lpf Urine Bacteria (Auto) (Negative) 12/26/18 12/26/18 12/26/18 Range/Units 06:04 06:01 05:15 WBC 9.19 (4.8-10.8) K/uL RBC 3.78 L (4.2-5.4) M/uL Hgb 11.6 L (12.0-16.0) g/dL POC Hgb (12.0-16.0) g/dl Hct 32.9 L (37-47) % POC Hct (37-47) % MCV 87.0 (80-100) fL MCH 30.7 (25-34) pg MCHC 35.3 (32-36) g/dL RDW Std Deviation 40.9 (36.4-46.3) fL RDW Coeff of Taniya 12.7 (11.5-14.5) % Plt Count 379 (130-400) K/uL MPV 8.4 (7.4-10.4) fL Immature Gran % (Auto) 0.3 % Neut % (Auto) 81.9 % Lymph % (Auto) 11.6 % [place] % (Auto) 6.1 % Eos % (Auto) 0.0 % Baso % (Auto) 0.1 % Immature Gran # (Auto) 0.03 H (0.00-0.02) K/uL Neut # (Auto) 7.52 H (1.4-6.5) K/uL Lymph # (Auto) 1.07 L (1.2-3.4) K/uL [place] # (Auto) 0.56 (0.11-0.59) K/uL Eos # (Auto) 0.00 (0-0.5) K/uL Baso # (Auto) 0.01 (0-0.2) K/uL PT 10.3 (9.0-12.0) Seconds INR 1.0 (0.9-1.1) POC Sodium (135-144) mEq/L Sodium (136-145) mmol/L POC Potassium (3.3-5.0) mEq/L Potassium (3.5-5.1) mmol/L POC Chloride (101-112) mEq/L Chloride (98-107) mmol/L Carbon Dioxide (21-32) mmol/L POC Total CO2 (24-31) mEq/l Anion Gap (3-11) POC Anion Gap (16-25) mmol/L POC BUN (7-18) mg/dl BUN (7-18) mg/dl Creatinine (0.6-1.2) mg/dl POC Creatinine (0.6-1.3) mg/dl Est Cr Clr Drug Dosing ml/min Est GFR ( Amer) Est GFR (Non-Af Amer) BUN/Creatinine Ratio (10-20) Glucose (70-99) mg/dl POC Glucose (other) (70-99) mg/dl Estimat Average Glucose mg/dl Hemoglobin A1c (4.5-5.6) % POC Lactic Acid Juan (0.90-1.70) mmol/L Lactate (0.4-2.0) mmol/L Calcium (8.5-10.1) mg/dl POC Ioniz Calcium Aliza (1.12-1.32) mmol/l Magnesium (1.8-2.4) mg/dl Total Bilirubin (0.2-1) mg/dl AST (15-37) U/L ALT (12-78) U/L Alkaline Phosphatase (45-117) U/L Troponin I (0-0.045) ng/ml Total Protein (6.4-8.2) gm/dl Albumin (3.4-5.0) gm/dl Globulin (2.5-4.0) gm/dl Albumin/Globulin Ratio (0.9-2) Lipase (73-393) U/L Urine Color Yellow Urine Appearance Clear (Clear) Urine pH 7.5 (4.5-7.5) Ur Specific [place] > 1.045 H (1.000-1.030) Urine Protein Negative (Negative) Urine Glucose (UA) Negative (Negative) Urine Ketones 1+ H (Negative) Urine Blood 2+ H (Negative) Urine Nitrite Negative (Negative) Urine Bilirubin Negative (Negative) Urine Urobilinogen Negative (Negative) Ur Leukocyte Esterase Negative (Negative) Urine WBC (Auto) 10-30 H (0-5) /hpf Urine RBC (Auto) 10-30 H (0-4) /hpf U Hyaline Cast (Auto) 1-5 (0-5) /lpf U Epithel Cells (Auto) >30 H (0-5) /lpf Urine Bacteria (Auto) Negative (Negative) 12/26/18 12/26/18 12/26/18 Range/Units 02:08 01:28 01:21 WBC (4.8-10.8) K/uL RBC (4.2-5.4) M/uL Hgb (12.0-16.0) g/dL POC Hgb 13.6 (12.0-16.0) g/dl Hct (37-47) % POC Hct 40 (37-47) % MCV (80-100) fL MCH (25-34) pg MCHC (32-36) g/dL RDW Std Deviation (36.4-46.3) fL RDW Coeff of Taniya (11.5-14.5) % Plt Count (130-400) K/uL MPV (7.4-10.4) fL Immature Gran % (Auto) % Neut % (Auto) % Lymph % (Auto) % [place] % (Auto) % Eos % (Auto) % Baso % (Auto) % Immature Gran # (Auto) (0.00-0.02) K/uL Neut # (Auto) (1.4-6.5) K/uL Lymph # (Auto) (1.2-3.4) K/uL [place] # (Auto) (0.11-0.59) K/uL Eos # (Auto) (0-0.5) K/uL Baso # (Auto) (0-0.2) K/uL PT (9.0-12.0) Seconds INR (0.9-1.1) POC Sodium 131 L (135-144) mEq/L Sodium 130 L (136-145) mmol/L POC Potassium 3.8 (3.3-5.0) mEq/L Potassium 3.7 (3.5-5.1) mmol/L POC Chloride 95 L (101-112) mEq/L Chloride 95 L (98-107) mmol/L Carbon Dioxide 25 (21-32) mmol/L POC Total CO2 23 L (24-31) mEq/l Anion Gap 10.0 (3-11) POC Anion Gap 18.0 (16-25) mmol/L POC BUN 15 (7-18) mg/dl BUN 15 (7-18) mg/dl Creatinine 0.74 (0.6-1.2) mg/dl POC Creatinine 0.6 (0.6-1.3) mg/dl Est Cr Clr Drug Dosing 64.0 ml/min Est GFR ( Amer) 96.5 Est GFR (Non-Af Amer) 83.2 BUN/Creatinine Ratio 20.7 H (10-20) Glucose 186 H (70-99) mg/dl POC Glucose (other) 198 H (70-99) mg/dl Estimat Average Glucose mg/dl Hemoglobin A1c (4.5-5.6) % POC Lactic Acid Juan 1.93 H (0.90-1.70) mmol/L Lactate (0.4-2.0) mmol/L Calcium 9.3 (8.5-10.1) mg/dl POC Ioniz Calcium Aliza 1.05 L (1.12-1.32) mmol/l Magnesium 2.0 (1.8-2.4) mg/dl Total Bilirubin 0.5 (0.2-1) mg/dl AST 31 (15-37) U/L ALT 37 (12-78) U/L Alkaline Phosphatase 115 (45-117) U/L Troponin I < 0.015 (0-0.045) ng/ml Total Protein 8.2 (6.4-8.2) gm/dl Albumin 4.7 (3.4-5.0) gm/dl Globulin 3.5 (2.5-4.0) gm/dl Albumin/Globulin Ratio 1.3 (0.9-2) Lipase 95 (73-393) U/L Urine Color Urine Appearance (Clear) Urine pH (4.5-7.5) Ur Specific [place] (1.000-1.030) Urine Protein (Negative) Urine Glucose (UA) (Negative) Urine Ketones (Negative) Urine Blood (Negative) Urine Nitrite (Negative) Urine Bilirubin (Negative) Urine Urobilinogen (Negative) Ur Leukocyte Esterase (Negative) Urine WBC (Auto) (0-5) /hpf Urine RBC (Auto) (0-4) /hpf U Hyaline Cast (Auto) (0-5) /lpf U Epithel Cells (Auto) (0-5) /lpf Urine Bacteria (Auto) (Negative) 12/26/18 Range/Units 01:21 WBC 13.80 H (4.8-10.8) K/uL RBC 4.31 (4.2-5.4) M/uL Hgb 13.5 (12.0-16.0) g/dL POC Hgb (12.0-16.0) g/dl Hct 37.3 (37-47) % POC Hct (37-47) % MCV 86.5 (80-100) fL MCH 31.3 (25-34) pg MCHC 36.2 H (32-36) g/dL RDW Std Deviation 40.5 (36.4-46.3) fL RDW Coeff of Taniya 12.6 (11.5-14.5) % Plt Count 431 H (130-400) K/uL MPV 8.7 (7.4-10.4) fL Immature Gran % (Auto) 0.2 % Neut % (Auto) 88.1 % Lymph % (Auto) 5.8 % [place] % (Auto) 5.7 % Eos % (Auto) 0.0 % Baso % (Auto) 0.2 % Immature Gran # (Auto) 0.03 H (0.00-0.02) K/uL Neut # (Auto) 12.15 H (1.4-6.5) K/uL Lymph # (Auto) 0.80 L (1.2-3.4) K/uL [place] # (Auto) 0.79 H (0.11-0.59) K/uL Eos # (Auto) 0.00 (0-0.5) K/uL Baso # (Auto) 0.03 (0-0.2) K/uL PT (9.0-12.0) Seconds INR (0.9-1.1) POC Sodium (135-144) mEq/L Sodium (136-145) mmol/L POC Potassium (3.3-5.0) mEq/L Potassium (3.5-5.1) mmol/L POC Chloride (101-112) mEq/L Chloride (98-107) mmol/L Carbon Dioxide (21-32) mmol/L POC Total CO2 (24-31) mEq/l Anion Gap (3-11) POC Anion Gap (16-25) mmol/L POC BUN (7-18) mg/dl BUN (7-18) mg/dl Creatinine (0.6-1.2) mg/dl POC Creatinine (0.6-1.3) mg/dl Est Cr Clr Drug Dosing ml/min Est GFR ( Amer) Est GFR (Non-Af Amer) BUN/Creatinine Ratio (10-20) Glucose (70-99) mg/dl POC Glucose (other) (70-99) mg/dl Estimat Average Glucose mg/dl Hemoglobin A1c (4.5-5.6) % POC Lactic Acid Juan (0.90-1.70) mmol/L Lactate (0.4-2.0) mmol/L Calcium (8.5-10.1) mg/dl POC Ioniz Calcium Aliza (1.12-1.32) mmol/l Magnesium (1.8-2.4) mg/dl Total Bilirubin (0.2-1) mg/dl AST (15-37) U/L ALT (12-78) U/L Alkaline Phosphatase (45-117) U/L Troponin I (0-0.045) ng/ml Total Protein (6.4-8.2) gm/dl Albumin (3.4-5.0) gm/dl Globulin (2.5-4.0) gm/dl Albumin/Globulin Ratio (0.9-2) Lipase (73-393) U/L Urine Color Urine Appearance (Clear) Urine pH (4.5-7.5) Ur Specific [place] (1.000-1.030) Urine Protein (Negative) Urine Glucose (UA) (Negative) Urine Ketones (Negative) Urine Blood (Negative) Urine Nitrite (Negative) Urine Bilirubin (Negative) Urine Urobilinogen (Negative) Ur Leukocyte Esterase (Negative) Urine WBC (Auto) (0-5) /hpf Urine RBC (Auto) (0-4) /hpf U Hyaline Cast (Auto) (0-5) /lpf U Epithel Cells (Auto) (0-5) /lpf Urine Bacteria (Auto) (Negative) Diagnostic Findings CT angio abd pelvis wo/w con HISTORY: abd pain radiating into back TECHNIQUE: Multiaxial CT images of the abdomen and pelvis were performed both before and after the intravenous administration of contrast to evaluate the major arterial structures. Maximal intensity projection images were also obtained. COMPARISON STUDY: None. FINDINGS: A 6 mm nodule within the base of the right lower lobe on image 8. A 3 mm nodule within the left lower lobe on image 9. Small hiatus hernia. No pneumoperitoneum. No pneumatosis. No suspicious lytic or blastic osseous lesions. Hepatic steatosis. A 2.2 cm hypervascular focus seen within the periphery of the anterior segment of the right hepatic lobe. The spleen, adrenal glands, pancreas, gallbladder, and kidneys are unremarkable. No renal or ureteral stones. No hydronephrosis. A 3 mm hypodense lesion within the lower pole of the left kidney is technically too small to characterize but favors a cyst. No retroperitoneal lymphadenopathy. The bladder is not well-distended but appears unremarkable. The uterus and bilateral adnexa are within normal limits. The colon is mostly decompressed. The appendix is not identified with certainty. Dilated and fluid-filled loops of mid to distal small bowel with a focal transition point in the deep pelvis at the distal ileum. The transition point is best seen on image 341. Proximal to this transition point the bowel is dilated up to 3.8 cm. Therefore, this is consistent with a small bowel obstruction. The terminal ileum is decompressed. The decompressed terminal ileum appears hyperemic without definite bowel wall thickening. The abdominal aorta, celiac artery, mesenteric arteries, renal arteries, and iliac arteries are widely patent. No dissection identified. IMPRESSION: 1. Small bowel obstruction with focal transition point within the deep pelvis at the distal ileum. The terminal ileum is hyperemic and decompressed. Follow-up recommended to exclude the possibility of an underlying small bowel mass. 2. No significant stenosis or dissection within the abdominal arteries. 3. A 2.2 cm hypervascular focus within the periphery of the anterior segment of the right hepatic lobe. This is indeterminate but could represent focal nodular hyperplasia, flash filling hemangioma, or transient hepatic attenuation difference. 4. Subcentimeter indeterminate pulmonary nodules with the largest in the right lower lobe measuring 6 mm. Please refer to the chart below for recommended follow-up.
[2018-12-26] MEDS ORDERED: SODIUM CHLORIDE 0.9% 500 ML IV SCH (23:00)
--- NOTE | 2018-12-27 02:33 | Emergency Department Note ---
Entered by King Traore acting as a scribe for History of Present Illness General Chief complaint: Abdominal Pain Stated complaint: SEVERE ABDOMINAL PAIN RADIATING TO BACK,VOMITING Time Seen by Provider: 12/26/18 01:05 Source: patient History of Present Illness Onset (ago): day(s) (yesterday) Location: abdomen Radiation: back Pain Consistency: + other (waxing and waning) Maximum Pain Intensity: 7 Associated symptoms: + other (Positive for back pain, nausea, vomiting, mild bloating, and chills. Negative for diarrhea, black/bloody stool, hematemesis, fever, numbness/weakness, and urinary symptoms.) The patient is a 68 year old female who presents to the emergency department with complaints of waxing and waning abdominal pain beginning yesterday. The patient states that she first developed abdominal pain yesterday that worsened at 1800 last night. She notes that her abdominal pain goes straight to her back. She also complains of nausea, vomiting, mild bloating, and chills. She denies any diarrhea, black/bloody stool, hematemesis, fever, numbness/weakness, and urinary symptoms. She reports that she has not experienced any similar pain in the past. She also denies any recent travel, medication changes, known sick contacts, and ingestion of bad food. Only prior abdominal surgery was a bladder repair and suspension many years ago. Home Medications Home Medications Medication Instructions Recorded Confirmed Type atorvastatin 40 mg PO HS 12/26/18 12/26/18 History calcium carbonate-vitamin D3 1 tab PO DAILY 12/26/18 12/26/18 History [Calcium 500 + D] gemfibrozil 600 mg PO BID 12/26/18 12/26/18 History lisinopril-hydrochlorothiazide 1 tab PO DAILY 12/26/18 12/26/18 History Allergies Allergy/AdvReac Type Severity Reaction Status Date / Time No Known Allergies Allergy Verified 07/25/17 09:16 Past Med/Surg History Medical History No chronic problems Family History Other No significant family history Social History Preferred Language: [place] 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 and A total of 10 systems reviewed and were otherwise negative Physical Exam Vital Signs Vital Signs - 24 hr 12/26/18 02:37 Pulse Rate [Apical] 113 H Respiratory Rate 18 Respiratory Effort / Characteristics Non-Labored Spontaneous Respiratory Depth Normal Respiratory Pattern Regular Blood Pressure [Right Arm] 143/77 H Blood Pressure Mean [Right Arm] 99 Blood Pressure Position [Right Arm] Sitting Pulse Oximetry 98 Oxygen Delivery Method Room Air GENERAL: alert, uncomfortable appearing, well nourished, in mild distress, non- toxic EYE EXAM: normal conjunctiva, PERRL and EOM's grossly intact OROPHARYNX: no exudate, no erythema, lips, buccal mucosa, and tongue normal and mucous membranes are mildly dry NECK: supple, no nuchal rigidity, no adenopathy, non-tender LUNGS: Clear to auscultation. Normal chest wall mechanics, no w/r/r HEART: no murmurs, S1 normal and S2 normal ABDOMEN: abdomen soft, no masses, no rebound or guarding, periumbilical/central abdominal tenderness with palpation, dull to percussion, no distention BACK: Back is symmetrical on inspection and there is no deformity, no midline tenderness, no CVA tenderness. SKIN: no rashes and no bruising UPPER EXTREMITIES: upper extremities are grossly normal. FROM, nml pulses b/l. LOWER EXTREMITIES: No pitting edema. FROM, nml pulses b/l. NEURO EXAM: Normal sensorium, cranial nerves II-XII grossly intact, normal speech, no gross weakness of arms, no gross weakness of legs. Course 0109: The patient was evaluated in room A3. A complete history and physical exam was performed. 0235: I discussed the patient's case with Luz Macdonald. She states that the patient can be admitted to medicine and can be treated conservatively at this time. 0307: Upon reevaluation, the patient is stable. I discussed the findings and the treatment plan with the patient. She expresses agreement and understanding. I spoke with Dr. Bridges of the [facility]. The patient will be evaluated for further management. Consultations Consultation #1: I discussed the patient's case with Luz Macdonald. She states that the patient can be admitted to medicine and she notes that the patient does not sound acutely surgical. Time: 02:35 Consultation #2: I spoke with Dr. Bridges of the [facility]. The patient will be evaluated for further management. Time: 03:07 Administered Medications Heparin Sodium (Porcine) (Heparin Sodium (Porcine)) 5,000 units SQ Q8 BAKARI Stop: 01/25/19 07:29 Last Admin: 12/26/18 22:13 Dose: 5,000 units Documented by: [id number] Cosigned by: [id number] Admin: 12/26/18 14:04 Dose: 5,000 units Documented by: [id number] Cosigned by: [id number] Admin: 12/26/18 09:15 Dose: 5,000 units Documented by: [id number] Cosigned by: [id number] Hydromorphone HCl (Dilaudid) 0.5 mg IV Q3H PRN PRN Reason: Pain Stop: 01/09/19 02:50 Last Admin: 12/27/18 00:53 Dose: 0.5 mg Documented by: [id number] Acetaminophen (Ofirmev) 1,000 mg in 100 mls @ 400 mls/hr IV Q8H PRN PRN Reason: Pain or Fever Stop: 01/25/19 02:50 Last Infusion: 12/26/18 19:05 Dose: 0 mls/hr Documented by: [id number] Admin: 12/26/18 17:34 Dose: 100 mls/hr Documented by: [id number] Infusion: 12/26/18 06:30 Dose: 0 mls/hr Documented by: [id number] Admin: 12/26/18 04:44 Dose: 400 mls/hr Documented by: [id number] Sodium Chloride (Nss) 500 mls @ 110 mls/hr IV .Q4H33M BAKARI Stop: 12/27/18 03:32 Last Admin: 12/26/18 23:35 Dose: 110 mls/hr Documented by: [id number] Discontinued Medications Sodium Chloride (Nss 1000ml) 1,000 mls @ 200 mls/hr IV .Q5H BAKARI Stop: 01/25/19 01:29 Last Infusion: 12/26/18 06:36 Dose: 0 mls/hr Documented by: [id number] Admin: 12/26/18 01:31 Dose: 200 mls/hr Documented by: [id number] Lactated Ringer's (Lr) 1,000 mls @ 125 mls/hr IV .Q8H [facility] Stop: 12/26/18 19:51 Last Infusion: 12/26/18 21:05 Dose: 0 mls/hr Documented by: [id number] Admin: 12/26/18 12:56 Dose: 125 mls/hr Documented by: [id number] Infusion: 12/26/18 12:55 Dose: 0 mls/hr Documented by: [id number] Infusion: 12/26/18 06:36 Dose: 125 mls/hr Documented by: [id number] Admin: 12/26/18 04:44 Dose: 125 mls/hr Documented by: [id number] Ioversol (Optiray 320 125ml) 125 ml IV ONCE PRN PRN Reason: Interaction Checking Stop: 12/30/18 01:58 Last Admin: 12/26/18 01:59 Dose: 119 ml Documented by: [id number] Morphine Sulfate (Morphine Sulfate) 4 mg IV NOW STA Stop: 12/26/18 01:18 Last Admin: 12/26/18 01:31 Dose: 4 mg Documented by: [id number] Ondansetron HCl (Zofran) 4 mg IV NOW STA Stop: 12/26/18 01:18 Last Admin: 12/26/18 01:30 Dose: 4 mg Documented by: [id number] Medical Decision Making Differential Diagnosis Differential diagnosis: Etiologies such as biliary colic, cholecystitis, hepatitis, perihepatitis, pancreatitis, cardiac disease, pancreatitis, gastritis, peptic ulcer disease, appendicitis, ovarian cyst, ovarian torsion, ectopic , pelvic inflammatory disease, cystitis, diverticulitis, mesenteric ischemia, inflamm atory bowel disease, ileus, bowel obstruction, aortic pathology, shingles, as well as others were considered. Medical Records Attestation: I reviewed the patient's medical records. Home Medications Current Medication List: was personally reviewed by me Laboratory Data Attestation: I reviewed the patient's lab results. Result diagrams: 12/26/18 06:04 12/26/18 06:04 Lab Results 12/26/18 12/26/18 12/26/18 Range/Units 01:21 01:21 01:28 WBC 13.80 H (4.8-10.8) K/uL RBC 4.31 (4.2-5.4) M/uL Hgb 13.5 (12.0-16.0) g/dL POC Hgb 13.6 (12.0-16.0) g/dl Hct 37.3 (37-47) % POC Hct 40 (37-47) % MCV 86.5 (80-100) fL MCH 31.3 (25-34) pg MCHC 36.2 H (32-36) g/dL RDW Std Deviation 40.5 (36.4-46.3) fL RDW Coeff of Taniya 12.6 (11.5-14.5) % Plt Count 431 H (130-400) K/uL MPV 8.7 (7.4-10.4) fL Immature Gran % (Auto) 0.2 % Neut % (Auto) 88.1 % Lymph % (Auto) 5.8 % [place] % (Auto) 5.7 % Eos % (Auto) 0.0 % Baso % (Auto) 0.2 % Immature Gran # (Auto) 0.03 H (0.00-0.02) K/uL Neut # (Auto) 12.15 H (1.4-6.5) K/uL Lymph # (Auto) 0.80 L (1.2-3.4) K/uL [place] # (Auto) 0.79 H (0.11-0.59) K/uL Eos # (Auto) 0.00 (0-0.5) K/uL Baso # (Auto) 0.03 (0-0.2) K/uL POC Sodium 131 L (135-144) mEq/L Sodium 130 L (136-145) mmol/L POC Potassium 3.8 (3.3-5.0) mEq/L Potassium 3.7 (3.5-5.1) mmol/L POC Chloride 95 L (101-112) mEq/L Chloride 95 L (98-107) mmol/L Carbon Dioxide 25 (21-32) mmol/L POC Total CO2 23 L (24-31) mEq/l Anion Gap 10.0 (3-11) POC Anion Gap 18.0 (16-25) mmol/L POC BUN 15 (7-18) mg/dl BUN 15 (7-18) mg/dl Creatinine 0.74 (0.6-1.2) mg/dl POC Creatinine 0.6 (0.6-1.3) mg/dl Est Cr Clr Drug Dosing 64.0 ml/min Est GFR ( Amer) 96.5 Est GFR (Non-Af Amer) 83.2 BUN/Creatinine Ratio 20.7 H (10-20) Glucose 186 H (70-99) mg/dl POC Glucose (other) 198 H (70-99) mg/dl POC Lactic Acid Juan (0.90-1.70) mmol/L Calcium 9.3 (8.5-10.1) mg/dl POC Ioniz Calcium Aliza 1.05 L (1.12-1.32) mmol/l Magnesium 2.0 (1.8-2.4) mg/dl Total Bilirubin 0.5 (0.2-1) mg/dl AST 31 (15-37) U/L ALT 37 (12-78) U/L Alkaline Phosphatase 115 (45-117) U/L Troponin I < 0.015 (0-0.045) ng/ml Total Protein 8.2 (6.4-8.2) gm/dl Albumin 4.7 (3.4-5.0) gm/dl Globulin 3.5 (2.5-4.0) gm/dl Albumin/Globulin Ratio 1.3 (0.9-2) Lipase 95 (73-393) U/L 12/26/18 Range/Units 02:08 WBC (4.8-10.8) K/uL RBC (4.2-5.4) M/uL Hgb (12.0-16.0) g/dL POC Hgb (12.0-16.0) g/dl Hct (37-47) % POC Hct (37-47) % MCV (80-100) fL MCH (25-34) pg MCHC (32-36) g/dL RDW Std Deviation (36.4-46.3) fL RDW Coeff of Taniya (11.5-14.5) % Plt Count (130-400) K/uL MPV (7.4-10.4) fL Immature Gran % (Auto) % Neut % (Auto) % Lymph % (Auto) % [place] % (Auto) % Eos % (Auto) % Baso % (Auto) % Immature Gran # (Auto) (0.00-0.02) K/uL Neut # (Auto) (1.4-6.5) K/uL Lymph # (Auto) (1.2-3.4) K/uL [place] # (Auto) (0.11-0.59) K/uL Eos # (Auto) (0-0.5) K/uL Baso # (Auto) (0-0.2) K/uL POC Sodium (135-144) mEq/L Sodium (136-145) mmol/L POC Potassium (3.3-5.0) mEq/L Potassium (3.5-5.1) mmol/L POC Chloride (101-112) mEq/L Chloride (98-107) mmol/L Carbon Dioxide (21-32) mmol/L POC Total CO2 (24-31) mEq/l Anion Gap (3-11) POC Anion Gap (16-25) mmol/L POC BUN (7-18) mg/dl BUN (7-18) mg/dl Creatinine (0.6-1.2) mg/dl POC Creatinine (0.6-1.3) mg/dl Est Cr Clr Drug Dosing ml/min Est GFR ( Amer) Est GFR (Non-Af Amer) BUN/Creatinine Ratio (10-20) Glucose (70-99) mg/dl POC Glucose (other) (70-99) mg/dl POC Lactic Acid Juan 1.93 H (0.90-1.70) mmol/L Calcium (8.5-10.1) mg/dl POC Ioniz Calcium Aliza (1.12-1.32) mmol/l Magnesium (1.8-2.4) mg/dl Total Bilirubin (0.2-1) mg/dl AST (15-37) U/L ALT (12-78) U/L Alkaline Phosphatase (45-117) U/L Troponin I (0-0.045) ng/ml Total Protein (6.4-8.2) gm/dl Albumin (3.4-5.0) gm/dl Globulin (2.5-4.0) gm/dl Albumin/Globulin Ratio (0.9-2) Lipase (73-393) U/L Imaging Data Radiologist's Impression: Radiology results as stated below per my review and the radiologist's interpretation: CTA ABDOMEN & PELVIS W/WO Contrast: The aorta is normal in caliber without evidence for aneurysm or dissection. No periaortic abnormality identified. The celiac axis, superior mesenteric artery, NERY and renal arteries are widely patent. There are multiple fluid-filled loops of small bowel throughout the abdomen and pelvis with an apparent transition point identified in the central pelvis (series 5; image 340). The loop of decompressed bowel immediately beyond the suspected transition point is slightly hyperenhancing but demonstrates no obvious lead point or mass lesion. Findings are most consistent with a small bowel obstruction. Minimal edema within the mesentery is presumed related to the small bowel process. No pneumoperitoneum. Incidental probably hemangioma involving segment 4 of the liver measuring approximately 18 x 14mm. The liver, gallbladder, pancreas, common adrenal glands, and kidneys demonstrate no significant abnormalities. The spleen is he terogenous in appearance which is presumably related to early arterial phase of imaging. No acute osseous or significant overlying soft tissue abnormality. Incidental noncalcified juxtapleural pulmonary nodule involving the right lower love measuring 6mm (series 5; image 19). Recommend follow-up per national criterial guidelines. Radiologist: Jase Huitron MD. ECG Data Attestation: I personally reviewed and interpreted this ECG as follows: Indication: abdominal pain Rate (beats per minute): 114 Rhythm: sinus tachycardia Findings: no PAC, no PVC and no acute ischemic change Additional Comments: Normal axis, normal intervals. Blood Pressure Blood Pressure Findings: Elevated blood pressure Blood Pressure Disposition: further management by hospitalist [facility] Narrative Patient here uncomfortable appearing with new onset of central abdominal pain. Patient found to have a small bowel obstruction noted on CT with transition point in the central abdomen. Patient's other labs reassuring and patient was h emodynamically stable throughout. Case discussed with general surgery on-call as a precaution who advises admission to medicine and surgical consult in the morning but felt patient could be treated conservatively at this time. Patient had no vomiting here, nausea improved with Zofran, so NG tube not urgently placed. Patient and family were made aware of all results and were in agreement patient evaluation and management. I do not suspect ischemic process at this time. No other evidence of occult infectious etiology. Impression & Plan SBO (small bowel obstruction), Abdominal pain Discharge Plan Visit Data *Final* Discharge Date/Time: 12/26/18 03:19 Chief Complaint: Abdominal Pain Stated Complaint: SEVERE ABDOMINAL PAIN RADIATING TO BACK,VOMITING ED Provider: Lori Madrigal Discharge Problem: SBO (small bowel obstruction), Abdominal pain Patient Disposition: Admitted As Inpatient Discharge Instructions Interventions: ED Discharge Assessment Last Done: 12/26/18 03:19 The scribe's documentation has been prepared under my direction and personally reviewed by me in its entirety. I confirm that the note above accurately reflects all work, treatment, procedures, and medical decision making performed by me.
[2018-12-27] MEDS: HEPARIN SOD 5,000 UNIT/0.5 ML VIAL SQ SCH ×3 (05:38→21:28)
[2018-12-27 07:28] LABS: Hematocrit (blood only) 29.5 % (37-47); Hemoglobin 10.3 g/dL (12.0-16.0); Mean Corpuscular Hgb Conc 34.9 g/dL (32-36); Mean Corpuscular Volume 87.3 fL (80-100); Platelet Count 301 K/uL (130-400); RDW Coefficient of Variation 12.7 % (11.5-14.5); RDW Standard Deviation 41.2 fL (36.4-46.3); Red Blood Count 3.38 M/uL (4.2-5.4)
[2018-12-27 08:09] LABS: BUN Creatinine Ratio 14.1 (10-20); Calcium 8.3 mg/dl (8.5-10.1); Creatinine Clr Calc Pharmacy 94.7 ml/min; Est GFR (African American) 115.3; Est GFR (Non-African American) 99.4
[2018-12-27] MEDS: D5NSS + 20MEQ KCL 20 MEQ/1,000 ML BAG IV SCH ×2 (09:01→18:41)
--- NOTE | 2018-12-27 13:24 | Surgery Progress Note ---
Date of Service December 27, 2018 Assessment & Plan (1) SBO (small bowel obstruction): Patient's abdominal pain symptoms and nausea have resolved. Passing flatus We will begin clear liquids Continue to monitor for recurrence of symptoms Subjective Feels well today Denies pain Denies nausea and vomiting Passing moderate amounts of flatus No bowel movement as yet Physical Exam Gastrointestinal (Abdomen): Inspection/Auscultation: normal bowel sounds; abdomen not distended Percussion/Palpation: abdomen soft; abdomen nontender Results & Data Vital Signs (Past 12 Hours) Vital Signs Temp Pulse Resp BP Pulse Ox 12/27/18 07:53 36.6 C 79 16 126/70 99
--- NOTE | 2018-12-27 19:42 | Hospitalist Progress Note ---
Date of Service December 27, 2018 Assessment & Plan (1) SBO (small bowel obstruction): clinically improved. clears started by surgery. continue IVF; replace low K. ambulate. outpatient colonoscopy will be needed to rule out ileal pathology. Present on Admission?: Yes (2) Hypokalemia: replace IV/PO repeat BMP am (3) HTN (hypertension): holding meds BPs acceptable (4) DVT prophylaxis: heparin TID Subjective patient passing plenty of flatus. no nausea or emesis. no abdominal pain. ambulating. has appetite. Review of Systems Constitutional: no fever Respiratory: no cough and no dyspnea Cardiovascular: no chest pain Gastrointestinal: no abdominal pain Physical Exam Constitutional: well developed and well nourished; no acute distress ENMT: external ear and nose normal, oropharynx normal Respiratory: normal respiratory effort, lungs clear to auscultation Cardiovascular: RRR, no murmur, no edema Heart Sounds: normal S1 and normal S2 Vessels: posterior tibial pulses present and dorsalis pedis pulses present; no JVD Gastrointestinal (Abdomen): normal bowel sounds, soft, nontender, no hepatosplenomegaly Psychiatric: A+Ox3, euthymic affect Results & Data Vital Signs (Past 12 Hours) Vital Signs Temp Pulse Resp BP Pulse Ox 12/27/18 15:50 36.6 C 76 16 127/76 98 12/27/18 07:53 36.6 C 79 16 126/70 99 Laboratory Results Laboratory Results - last 24 hr 12/27/18 12/27/18 07:15 07:15 WBC 6.50 RBC 3.38 L Hgb 10.3 L Hct 29.5 L MCV 87.3 MCH 30.5 MCHC 34.9 RDW Std Deviation 41.2 RDW Coeff of Taniya 12.7 Plt Count 301 MPV 8.0 Sodium 137 Potassium 3.0 L D Chloride 105 Carbon Dioxide 26 Anion Gap 7.0 BUN 7 D Creatinine 0.50 L Est Cr Clr Drug Dosing 94.7 Est GFR ( Amer) 115.3 Est GFR (Non-Af Amer) 99.4 BUN/Creatinine Ratio 14.1 Glucose 83 Calcium 8.3 L Magnesium 2.0 (1) HTN (hypertension) Hypertension type: essential hypertension Qualified Code(s): I10 - Essential (primary) hypertension
[2018-12-27] MEDS: POTASSIUM CHLORIDE 20 MEQ TABCR PO SCH (21:28)
[2018-12-28] MEDS: D5NSS + 20MEQ KCL 20 MEQ/1,000 ML BAG IV SCH ×2 (03:51→13:51)
[2018-12-28] MEDS: HEPARIN SOD 5,000 UNIT/0.5 ML VIAL SQ SCH ×3 (05:23→21:22)
[2018-12-28] MEDS: POTASSIUM CHLORIDE 20 MEQ TABCR PO SCH ×3 (07:33→21:22)
[2018-12-28 08:25] LABS: BUN Creatinine Ratio 5.8 (10-20); Calcium 8.4 mg/dl (8.5-10.1); Creatinine Clr Calc Pharmacy 89.3 ml/min; Est GFR (African American) 113.1; Est GFR (Non-African American) 97.6; Potassium 3.4 mmol/L (3.5-5.1)
[2018-12-28] MEDS ORDERED: BISACODYL 10 MG SUPP PR STA (08:28)
--- NOTE | 2018-12-28 08:31 | Surgery Progress Note ---
Date of Service December 28, 2018 Assessment & Plan (1) SBO (small bowel obstruction): Patient's abdominal pain symptoms and nausea have resolved. Passing flatus, no bowel movement yet vitals stable, afebrile no n/v with clears Plan: Advance to full liquids Dulcolax suppository now Continue ambulation Will need colonoscopy as an outpatient in 6-[address] Self has seen and examined pt, agrees with above Subjective feeling good tolerated clear liquids without n/v still passing a lot of gas, no bowel movement yet no abdominal pain Physical Exam Constitutional: WD/WN, vitals as above no acute distress and not ill appearing Respiratory: normal respiratory effort; no respiratory distress Gastrointestinal (Abdomen): Inspection/Auscultation: abdomen normal to inspection and normal bowel sounds; abdomen not distended Percussion/Palpation: abdomen soft; abdomen nontender, no guarding and abdomen not rigid Skin: no rashes, warm and dry Psychiatric: A+Ox3, euthymic affect Results & Data Vital Signs (Past 12 Hours) Vital Signs Temp Pulse Resp BP Pulse Ox 12/27/18 23:37 36.6 C 77 16 132/72 96 Laboratory Results 12/28/18 Range/Units 07:24 Sodium 139 (136-145) mmol/L Potassium 3.4 L (3.5-5.1) mmol/L Chloride 107 (98-107) mmol/L Carbon Dioxide 24 (21-32) mmol/L Anion Gap 7.0 (3-11) BUN 3 L (7-18) mg/dl Creatinine 0.53 L (0.6-1.2) mg/dl Est Cr Clr Drug Dosing 89.3 ml/min Est GFR ( Amer) 113.1 Est GFR (Non-Af Amer) 97.6 BUN/Creatinine Ratio 5.8 L (10-20) Glucose 124 H (70-99) mg/dl Calcium 8.4 L (8.5-10.1) mg/dl
--- NOTE | 2018-12-28 22:10 | Hospitalist Progress Note ---
Date of Service December 28, 2018 Assessment & Plan (1) SBO (small bowel obstruction): clinically resolving. diet advanced to full liquids by surgery today. cut fluid rate to 50cc/hr now, then d/c fluids late tonight. BMP am. outpatient colonoscopy will be needed to rule out ileal pathology. home tomorrow? appreciate gen surgery recommendations (2) Hypokalemia: resolving nearly normal today continue K supplementation BMP am (3) HTN (hypertension): holding meds and BPs still acceptable (4) DVT prophylaxis: heparin TID anticipate d/c home tomorrow with 7-10 days of low fiber diet Subjective passing plenty of flatus. +stool following dulcolax this am. tolerating clears w/o nausea or emesis. no abd pain. feels good. Review of Systems Constitutional: no fever Respiratory: no dyspnea Cardiovascular: no chest pain Gastrointestinal: no abdominal pain, no nausea and no vomiting Physical Exam Constitutional: well developed and well nourished; no acute distress ENMT: external ear and nose normal, oropharynx normal Respiratory: normal respiratory effort, lungs clear to auscultation Cardiovascular: RRR, no murmur, no edema Heart Sounds: normal S1 and normal S2 Vessels: posterior tibial pulses present and dorsalis pedis pulses present; no JVD Gastrointestinal (Abdomen): normal bowel sounds, soft, nontender, no hepatosplenomegaly Psychiatric: A+Ox3, euthymic affect Results & Data Vital Signs (Past 12 Hours) Vital Signs Temp Pulse Resp BP Pulse Ox 12/28/18 15:27 36.3 C L 77 18 130/72 99 Laboratory Results Laboratory Results - last 24 hr 12/28/18 07:24 Sodium 139 Potassium 3.4 L Chloride 107 Carbon Dioxide 24 Anion Gap 7.0 BUN 3 L Creatinine 0.53 L Est Cr Clr Drug Dosing 89.3 Est GFR ( Amer) 113.1 Est GFR (Non-Af Amer) 97.6 BUN/Creatinine Ratio 5.8 L Glucose 124 H Calcium 8.4 L (1) HTN (hypertension) Hypertension type: essential hypertension Qualified Code(s): I10 - Essential (primary) hypertension
[2018-12-29] MEDS: HEPARIN SOD 5,000 UNIT/0.5 ML VIAL SQ SCH (05:40)
[2018-12-29 06:34] LABS: Hematocrit (blood only) 34.2 % (37-47); Hemoglobin 11.7 g/dL (12.0-16.0); Mean Corpuscular Hgb Conc 34.2 g/dL (32-36); Mean Corpuscular Volume 89.1 fL (80-100); Mean Platelet Volume 8.6 fL (7.4-10.4); Platelet Count 367 K/uL (130-400); RDW Coefficient of Variation 12.9 % (11.5-14.5); RDW Standard Deviation 41.6 fL (36.4-46.3); Red Blood Count 3.84 M/uL (4.2-5.4); White Blood Count 7.13 K/uL (4.8-10.8)
[2018-12-29 07:02] LABS: BUN Creatinine Ratio 5.8 (10-20); Calcium 9.1 mg/dl (8.5-10.1); Est GFR (African American) 106.3; Est GFR (Non-African American) 91.7; Potassium 3.9 mmol/L (3.5-5.1)
[2018-12-29] MEDS: POTASSIUM CHLORIDE 20 MEQ TABCR PO SCH (08:58)
--- NOTE | 2018-12-29 09:02 | Surgery Progress Note ---
Date of Service December 29, 2018 Assessment & Plan (1) SBO (small bowel obstruction): Patient seen and examined with Dr. Bragg. Pt doing well, abdominal pain has resolved. Clementina full liquid diet without issue. Will advance to low fiber. Ok to be discharged from surgical standpoint. Discharge per primary service. Return precautions reviewed. Subjective Patient resting comfortably in bed this AM- doing very well. +BM, tolerating full liquids without issue. Feeling hungry. Physical Exam Gastrointestinal (Abdomen): Inspection/Auscultation: abdomen not distended Percussion/Palpation: abdomen soft; abdomen nontender Results & Data Vital Signs (Past 12 Hours) Vital Signs Temp Pulse Resp BP BP Pulse Ox 12/29/18 08:02 36.6 C 74 18 133/76 95 12/28/18 23:26 36.3 C L 70 16 149/73 H 98
--- NOTE | 2019-01-07 05:09 | Discharge Summary ---
Date of Service date of admission - December 26, 2018 date of discharge - December 29, 2018 Admission HPI Per Admitting Provider 68 y/o F Hx HLD, HTN. Presenting with abdominal pain, nausea and vomiting x 1 day. She denies fevers, constipation or diarrhea. A CT of the abdomen demonstrated an SBO. Labs are notable for hyponatremia, hyperglycemia and an elevated lactic. A UA is equivocal. She does not have urinary symptoms. Principal Diagnosis Small Bowel Obstruction Discharge Exam Constitutional well developed and well nourished; no acute distress ENMT external ear and nose normal, oropharynx normal Respiratory normal respiratory effort, lungs clear to auscultation Cardiovascular RRR, no murmur, no edema Heart Sounds: normal S1 and normal S2 Vessels: posterior tibial pulses present and dorsalis pedis pulses present; no JVD Gastrointestinal (Abdomen) normal bowel sounds, soft, nontender, no hepatosplenomegaly Psychiatric A+Ox3, euthymic affect Discharge Data Allergies Allergy/AdvReac Type Severity Reaction Status Date / Time No Known Allergies Allergy Verified 07/25/17 09:16 Consultations general surgery Ordered Studies CT abd/pelvis - IMPRESSION: 1. Small bowel obstruction with focal transition point within the deep pelvis at the distal ileum. The terminal ileum is hyperemic and decompressed. Follow-up recommended to exclude the possibility of an underlying small bowel mass. 2. No significant stenosis or dissection within the abdominal arteries. 3. A 2.2 cm hypervascular focus within the periphery of the anterior segment of the right hepatic lobe. This is indeterminate but could represent focal nodular hyperplasia, flash filling hemangioma, or transient hepatic attenuation difference. 4. Subcentimeter indeterminate pulmonary nodules with the largest in the right lower lobe measuring 6 mm. Please refer to the chart below for recommended follow-up. Hospital Course (1) SBO (small bowel obstruction): clinically resolved with conservative measures including bowel rest and IV fluids. she never required NG tube decompression. she was seen by general surgery who provided nicolas recommendations for her care. she was ultimately resumed on a diet and this was advanced without difficulty. she was passing flatus and stools prior to discharge. outpatient colonoscopy will be needed to rule out ileal pathology given the CT findings. she was asked to follow a low fiber diet for the next 10 days post-discharge. (2) Hypokalemia: replaced PO/IV during the stay with resolution. (3) HTN (hypertension): BP medications were held during the stay because of NPO status and BPs largely stayed normal/at goal. At discharge she was asked to simply check her BPs at home. If BPs remain at goal she can remain off her medication. If BPs rise then simply resume her meds. (4) Pulmonary nodules: Multiple pulmonary nodules were seen the largest of which was 6mm. She was enrolled in the pulmonary nodule program and will need repeat imaging, according to guidelines, in 3-6 months. Total Time Total Time Spent Total Time Spent (In Minutes): 25 Total Time Includes: Examination of the Patient, Discharge Planning, Medication Reconciliation and Communication With Other Providers Discharge Plan Discharge Items Patient Disposition: Home - Self-Care Reason For Visit: SBO (small bowel obstruction) Discharge Diagnosis: SBO - resolved. Exact etiology uncertain -- colonoscopy needed. Discharge Goals: Diagnostic testing and Therapeutic intervention Activity: Resume your previous activity Non-emergency contact: Primary Care Provider and Veneer Joiner Call non-emergency contact if: you have any medication questions, your symptoms worsen and your temperature is above 100.5 Follow-up/Referrals: Austen Esparza MD [Primary Care Provider] - (Please, follow up at Dr. Esparza's office. *His nurse will call you with the appointment information. If you have any questions, call the office at [phone].) Jailyn Orellana PA-C [Physician Pelletizer Operator] - 01/04/19 1:00 pm (Please, follow up at [facility] Gastroenterology Office with Jailyn Orellana PA-C on MondayJanuary 04 at 1:00 pm. *This office is located at [address] [place] [address] in [facility]). If you need to change this appointment, call the office at [phone].) Diet: Low Fiber Addtl Provider Instructions: From Martell Moreno - hospitalist - You were admitted and treated for a small bowel obstruction. It appeared that the location of the blockage was in the ileum which is the last portion of the small intestine. The exact cause of the blockage, however, was uncertain. We are therefore recommending outpatient colonoscopy with Dr Wilder. You improved with customary measures including bowel rest, fluids, and time. Recommendations - 1. low fiber diet for 7-10 days. Avoid excessive amounts of fruits/veggies, high fiber cereals, beans, fiber supplements, etc. 2. watch for recurrent GI symptoms (bloating, nausea, lack of flatus/gas, vomiting, abd pain). Seek medical attention if these symptoms recur. 3. follow-up with Dr Wilder's office as scheduled. 4. see Dr Esparza within 1 week. 5. your blood pressures have been ok off of your blood pressure medication. You can hold your blood pressure medication for now. Check your pressures daily at home. If they consistently run greater than 140 on the top then resume your medication. Return to [facility] if -- * you have fevers over 100.5 degrees * you have recurrent abdominal pain, vomiting, nausea, lack of gas from your rectum, etc * any other concerns Prescriptions: Continued atorvastatin 40 mg tablet 40 mg PO HS RF: 0 gemfibrozil 600 mg tablet 600 mg PO BID RF: 0 calcium carbonate-vitamin D3 [Calcium 500 + D] 500 mg(1,250mg) -200 unit Tablet 1 tab PO DAILY RF: 0 Discontinued lisinopril-hydrochlorothiazide 10-12.5 mg tablet 1 tab PO DAILY RF: 0 Stand-Alone Forms: Call Back Authorization, [facility]/Other Patient Handouts: Obstruction Sm Bowel Discharge Orders: Discharge Order (Routine); Ordered 12/29/18 Ordered By: Martell Moreno Admission Data Admit Date/Time: 12/26/18 02:51 Attending Provider: Martell Moreno Admit Provider: Hubetr Bridges Primary Care Provider: Austen Esparza Other Providers: Varun Self Service: Medical Other Interventions: Discharge Summary Assessment (RN) Last Done: 12/29/18 10:32 Pending Studies at Discharge: No DC Date/Time DO NOT enter until pt leaves facility: 12/29/18 13:33
== END 2018-12-29 13:33 | disposition home or self-care (01) | DRG 389 ==
LOC: ED 00:55 → SUATTDRO 02:51 → 3W 02:51
DX: R74.0 Nonspecific elevation of levels of transaminase and lactic acid dehydrogenase [LDH]; E87.6 Hypokalemia; E78.5 Hyperlipidemia, unspecified; E87.1 Hypo-osmolality and hyponatremia; R73.9 Hyperglycemia, unspecified; K56.609 Unspecified intestinal obstruction, unspecified as to partial versus complete obstruction; I10 Essential (primary) hypertension; Z79.899 Other long term (current) drug therapy; R82.90 Unspecified abnormal findings in urine

== ENCOUNTER 2019-03-28 09:05 | Inpatient (IN) ==
--- NOTE | 2019-03-27 08:34 | Anesthesiology Consultation ---
Date of Service March 27, 2019 Assessment & Plan (1) Encounter for pre-operative examination: Chart Review Chart Review: Acceptable Risk for Surgery and Patient NOT seen in Pre Admission Testing History Surgery Operation Date: 03/28/19 10:40 Proposed Procedures p Diagnostic Laparoscopy, Possible Small Bowel Resection, Surgery as Needed - Jase Gonzalez DO Height/Weight Height: 5 ft 5 in Weight: 47.627 kg Allergies Allergy/AdvReac Type Severity Reaction Status Date / Time trazodone AdvReac Intermediate Dizziness Verified 03/28/19 09:28 Medications Home Medications Medication Instructions Recorded Confirmed Last Taken atorvastatin 40 mg PO HS 12/26/18 03/28/19 03/26/19 08:00 calcium carbonate-vitamin D3 1 tab PO DAILY 12/26/18 03/28/19 03/26/19 08:00 [Calcium 500 + D] gemfibrozil 600 mg PO BID 12/26/18 03/28/19 03/26/19 18:00 lisinopril 10 1 tab PO DAILY #90 tab 03/06/19 03/28/19 03/26/19 08:00 mg-hydrochlorothiazide 12.5 mg tablet Past Medical History Medical History Hypercholesterolemia HTN (hypertension) Abdominal pain (Acute) SBO (small bowel obstruction) (Acute) History of histoplasmosis scar tissue - lung History of seizures as a child last seizure at age 5 Past Surgical History Surgical History History of colonoscopy History of knee surgery as a child History of surgery bladder tack History of tubal ligation Social History Smoking Status: Never smoker Do You Dip or Chew Tobacco: No Hx Alcohol Use: Yes Alcohol type: wine alcohol intake frequency: a few times a week Hx Substance Use: No substance use type: does not use Physical Exam Vital Signs Last Vital Signs Temp 36.6 C 03/28/19 09:31 Pulse 77 03/28/19 09:31 Resp 16 03/28/19 09:31 BP 136/72 03/28/19 09:31 Pulse Ox 100 03/28/19 09:31 Testing Laboratory Results 03/13/19 WBC: 8.49 H/H: 14.3/41.7 PLATELETS: 483 SODIUM: 136 POTASSIUM: 3.3 CHLORIDE: 100 CO2: 29 BUN: 11 CREATININE: 0.84 GLUCOSE: 108 A1C: 6.0% Electrocardiogram Date: 12/26/18 Findings: + ST @ (114) *poor data quality, interpretation may be adversely affected
[~2019-03-28 09:05] MED LIST changes: -CALC600T9 PO; +CEFAZOLIN 2000MG 2,000 MG/15 ML SYR IV SCH; -GEMF600T PO; -LPT/40 PO; +LR 15ML/HR IV SCH; -LSN/10125 PO; -SOMNAPURE PO
[2019-03-28] MEDS ORDERED: ePHEDrine sulfate 50 MG/ML AMP IV PRN (10:29)
[2019-03-28] MEDS ORDERED: ATROPINE SULFATE 0.1 MG/ML 10ML SYR IV PRN (10:29)
[2019-03-28] MEDS ORDERED: HYDROmorphone INJ 1 MG/ML SYRINGE IV PRN (10:29)
[2019-03-28] MEDS ORDERED: ONDANSETRON INJ 2 MG/ML 2 ML VIAL IV PRN ×2 (10:29→16:26)
[2019-03-28] MEDS ORDERED: ONDANSETRON INJ 2 MG/ML 2 ML VIAL ONE ×2 (11:59→17:01)
[2019-03-28] MEDS ORDERED: LIDOCAINE HCL 2% 2 ML VIAL/AMP(20MG/ML) INFIL ONE (11:59)
[2019-03-28] MEDS ORDERED: MIDAZOLAM HCL 1 MG/ML 2ML VIAL ONE (11:59)
[2019-03-28] MEDS ORDERED: PROPOFOL IV EMULSION 10 MG/ML 20 ML VIAL IV ONE (11:59)
[2019-03-28] MEDS ORDERED: ROCURONIUM BROMIDE 10 MG/ML 5 ML VIAL ONE ×2 (11:59→14:21)
[2019-03-28] MEDS ORDERED: fentaNYL citrate 100 MCG/2 ML VIAL ONE ×3 (12:00→14:51)
--- NOTE | 2019-03-28 12:55 | History & Physical Bridge Note ---
Date of Service March 28, 2019 History & Physical Bridge Note I have examined the patient, reviewed the History & Physical and in the interval since the performance of the History & Physical I have noted the following changes of clinical significance: no changes noted
[2019-03-28] MEDS ORDERED: BUPIVACAINE/EPINEPHRINE 0.5% MPF 1:200,000 30 ML VIAL ONE (13:08)
[2019-03-28] MEDS ORDERED: KETAMINE HCL INJ 50 MG/ML 10 ML VIAL ONE (14:01)
[2019-03-28] MEDS ORDERED: HYDROmorphone INJ 2 MG/ML SYR/VIAL ONE (14:02)
[2019-03-28] MEDS ORDERED: LIDOCAINE HCL/D5W 2000 MG/500 ML BAG IV ONE (14:06)
[2019-03-28] MEDS ORDERED: DEXAMETHASONE SOD INJ 4 MG/ML VIAL ONE ×2 (14:33→15:04)
[2019-03-28] MEDS ORDERED: NEOSTIGMINE METHYLSULFATE 5 MG/5 ML SYR ONE (15:04)
[2019-03-28] MEDS ORDERED: KETOROLAC 30 MG/ML VIAL ONE (15:04)
[2019-03-28] MEDS ORDERED: GLYCOPYRROLATE 0.2 MG/ML VIAL ONE ×2 (15:04)
[2019-03-28] MEDS ORDERED: ePHEDrine sulfate 50 MG/ML SYR ONE (15:04)
[2019-03-28] MEDS ORDERED: BUPIVACAINE/EPINEPHRINE 0.5% MPF 1:200,000 10 ML VIAL INFIL ONE (15:17)
[2019-03-28] MEDS: fentaNYL citrate 100 MCG/2 ML VIAL IV PRN ×2 (15:21→15:31)
--- NOTE | 2019-03-28 15:32 | Operative Report ---
Post Operative Report Pre & Post Diagnosis Operation Date: 03/28/19 10:40 Pre-Op Diagnosis: Small Bowel Obstruction Post-Op Diagnosis: small bowel obstruction; small bowel mass; cecal mass; peritoneal/mesenteric nodules Procedure Operation Date: 03/28/19 10:40 Actual Procedures p Diagnostic Laparoscopy, Open ileocecectomy, partial small bowel resection, peritoneal biopsy, mesenteric biopsy(Not Applicable) - Jase Gonzalez DO Surgeon Jase Gonzalez DO Commercial Green Retrofit Architect ninoska Rogers Estimated Blood Loss 10 Findings Consistent with Post-Op Diagnosis Specimens 1. portion of small bowel, cecum, 2. peritoneal biopsy 3. mesenteric biopsy Description of Procedure After informed consent was obtained the patient was taken to the operating room and placed in supine position. After successful intubation a Moseley catheter was placed and the abdomen was sterilely prepped and draped in usual fashion. A supraumbilical incision was made with an 11 blade scalpel and carried down through the soft tissues and cautery. The anterior rectus fascia was opened using electrocautery and two #0 Vicryl stay sutures were placed. Peritoneum was entered using blunt finger penetration and a finger sweep performed. A 12 mm Blair trocar was placed and the abdomen was insufflated to 18 mmHg. The laparoscope was inserted and the abdomen was examined in 360 degrees. a right lower quadrant 5 mm port and a right mid abdominal 5 mm port were placed under direct vision. The patient was placed in a Trendelenburg position. We immediately noted multiple abnormalities. There were several white appearing nodules on the peritoneal surfaces as well as some on the small bowel mesentery. The distal end of the small bowel was dilated with a transition point about 6 to 8 inches proximal to the cecum. There was a second area of obstruction right at the ileocecal valve itself. The nodules and bowel were very firm and worrisome for a malignancy. At this point I converted to an open procedure. I made a lower midline incision with a 10 blade scalpel and carried this down through the tissue using cautery. The fascia was opened. We used [place] retractors throughout the case to help with my exposure. Again there were palpable nodules in the mesentery of the small bowel in different areas. There was also a very firm apple core type of lesion about 6 to 8 inches proximal to the cecum as well as right at the terminal ileum/appendiceal orifice itself. It was contracted and in fact I was not able to identify the appendix. There was a firm mass rig ht at the ileocecal valve and the cecum had a contracted appearance to it. I began by mobilizing the cecum and a right colon along the white line of Toldt with cautery and blunt finger dissection. Once I did this I transected the right colon with a purple cartridge PHOEBE 60 mm stapler just distal to the cecum but proximal to the right colic vessels. We then picked a spot several inches proximal to the first strictured area of the small bowel. We transected this using a PHOEBE brown cartridge stapler. We then used a LigaSure device to take down the mesentery of both the cecum as well as the small bowel. We passed this off as one specimen. We ran the small bowel back to the ligament of Treitz. There were no other areas of obstruction mass or stricture. Next we performed a side to side small bowel to right colon anastomosis using a 60 mm brown cartridge stapler. We closed the common enterotomy using a TA 60 stapling device. 3-[address] was [address] to place a crotch stitch as well as to imbricate all the staple lines in Lembert fashion. The mesenteric defect was closed using 2-0 Vicryl in a running fashion. There is adequate hemostasis at the end of the procedure. After performing the anastomosis we changed our gloves. I biopsied 1 of the peritoneal nodules as well as 1 of the enteric nodules and sent them separately. We did look around the remainder of the abdomen. Her right ovary did appear slightly abnormal with some nodularity to it although it was not nearly as firm as the small bowel masses. I saw no definite malignancy there or in the uterus. Liver surfaces were normal as was the stomach and gallbladder. Thorough irrigation was performed. We closed the fascia using oh looped PDS running from either pole and scaring them in the midline. Soft tissue was irri gated and skin was closed using skin bryan. The fascia of the camera port was closed using 0 Vicryl in [id number] fashion and the 3 port site incisions were closed with bryan as well. Silver dressing gauze and tape were used. The patient was awakened extubated and transferred recovery in stable condition. My physician graphic design assistant was present for the entire case. He helped prep the jorge ent. He helped run the camera as well as with retraction during my dissection. Assisted with wound closure and dressing placement. I attest to the content of the Intraoperative Record and any orders documented therein. Any exceptions are noted below.
--- NOTE | 2019-03-28 15:51 | Anesthesiology Progress Note ---
Date of Service March 28, 2019 Anesthesia Post Procedure Vital Signs Vital Signs: Temp Pulse Pulse Resp BP Pulse Ox 03/28/19 15:45 70 18 146/64 H 100 03/28/19 15:30 65 17 140/69 100 03/28/19 15:20 65 14 142/68 H 100 03/28/19 15:13 36.2 C L 75 16 137/72 100 03/28/19 09:31 36.6 C 77 16 136/72 100 Pain Intensity Abdomen: Pain Intensity: 4 Transfer of Care Handoff Completed per policy Notes Mental Status: alert / awake / arousable and participated in evaluation Patient Amnestic to Procedure: Yes Nausea / Vomiting: adequately controlled Pain: adequately controlled Airway Patency, RR, SpO2: stable & adequate BP & HR: stable & adequate Hydration State: stable & adequate Anesthetic Complications: no major complications apparent
[2019-03-28] MEDS ORDERED: HYDROmorphone HCL 0.5MG/ML 50 ML CASSETTE IV PRN (16:26)
[2019-03-28] MEDS ORDERED: NALOXONE HCL 0.4 MG/1 ML VIAL/CARP IV PRN (16:26)
[2019-03-28] MEDS ORDERED: HYDROmorphone INJ 1 MG/ML SYRINGE IV STA (16:53)
[2019-03-28] MEDS ORDERED: HYDROmorphone INJ 1 MG/ML SYRINGE ONE (16:56)
[2019-03-28] MEDS ORDERED: PHENYLEPHRINE 100MCG/ML 5ML SYR ONE (17:02)
[2019-03-28] MEDS: SODIUM CHLORIDE 0.9% 1000ML 1,000 ML IV SCH (17:09)
[2019-03-28] MEDS: LACTATED RINGER'S 1,000 ML IV SCH ×2 (17:31→23:18)
[2019-03-28] MEDS: ACETAMINOPHEN 1,000 MG/100 ML VIAL IV SCH (17:39)
[2019-03-28] MEDS: CEFAZOLIN 2000MG 2,000 MG/15 ML SYR IV SCH (21:42)
[2019-03-29] MEDS: ACETAMINOPHEN 1,000 MG/100 ML VIAL IV SCH ×3 (03:13→18:10)
[2019-03-29] MEDS: CEFAZOLIN 2000MG 2,000 MG/15 ML SYR IV SCH ×2 (06:02→13:18)
[2019-03-29] MEDS: LACTATED RINGER'S 1,000 ML IV SCH (06:18)
[2019-03-29 07:32] LABS: Basophils # (auto) 0.01 K/uL (0-0.2); Basophils % (auto) 0.1 %; Hemoglobin 10.1 g/dL (12.0-16.0); Immature Granulocytes # (auto) 0.04 K/uL (0.00-0.02); Immature Granulocytes % (auto) 0.4 %; Mean Corpuscular Hemoglobin 29.7 pg (25-34); Mean Corpuscular Hgb Conc 34.8 g/dL (32-36); Mean Corpuscular Volume 85.3 fL (80-100); Mean Platelet Volume 8.3 fL (7.4-10.4); Monocytes # (auto) 1.31 K/uL (0.11-0.59); Monocytes % (auto) 12.1 %; Neutrophils # (auto) 8.03 K/uL (1.4-6.5); Neutrophils % (auto) 74.4 %; Platelet Count 294 K/uL (130-400); RDW Coefficient of Variation 13.6 % (11.5-14.5); RDW Standard Deviation 42.1 fL (36.4-46.3); White Blood Count 10.79 K/uL (4.8-10.8)
--- NOTE | 2019-03-29 07:32 | Anesthesiology Progress Note ---
Date of Service March 29, 2019 Anesthesia Post Procedure Vital Signs Vital Signs: Temp Pulse Pulse Pulse Pulse Resp BP 03/29/19 03:16 36.8 C 102 H 16 03/28/19 23:56 37.1 C 96 H 16 03/28/19 21:28 37.0 C 93 H 16 03/28/19 20:30 36.7 C 89 16 03/28/19 19:28 36.6 C 93 H 16 03/28/19 18:30 36.8 C 86 16 03/28/19 18:16 36.3 C L 81 17 03/28/19 17:24 36.5 C 82 18 03/28/19 16:38 36.5 C 71 17 137/70 03/28/19 16:15 36.7 C 69 18 133/66 03/28/19 16:05 36.0 C L 72 24 140/68 03/28/19 15:55 68 18 146/64 H 03/28/19 15:45 70 18 146/64 H 03/28/19 15:30 65 17 140/69 03/28/19 15:20 65 14 142/68 H 03/28/19 15:13 36.2 C L 75 16 137/72 03/28/19 09:31 36.6 C 77 16 136/72 BP Pulse Ox 03/29/19 03:16 121/63 97 03/28/19 23:56 122/63 94 03/28/19 21:28 134/55 L 99 03/28/19 20:30 124/70 98 03/28/19 19:28 132/67 99 03/28/19 18:30 118/66 95 03/28/19 18:16 124/67 98 03/28/19 17:24 127/68 100 03/28/19 16:38 100 03/28/19 16:15 100 03/28/19 16:05 100 03/28/19 15:55 100 03/28/19 15:45 100 03/28/19 15:30 100 03/28/19 15:20 100 03/28/19 15:13 100 03/28/19 09:31 100 Pain Intensity Abdomen: Pain Intensity: 4 Notes Mental Status: alert / awake / arousable and participated in evaluation Patient Amnestic to Procedure: Yes Nausea / Vomiting: adequately controlled Pain: adequately controlled Airway Patency, RR, SpO2: stable & adequate BP & HR: stable & adequate Hydration State: stable & adequate Anesthetic Complications: Pt Satisfied with anesthetic care
[2019-03-29 07:42] LABS: INR 1.1 (0.9-1.1); Partial Thromboplastin Ratio 0.9; Partial Thromboplastin Time 25.1 Seconds (21.0-31.0)
[2019-03-29 07:59] LABS: BUN Creatinine Ratio 19.8 (10-20); Calcium 7.8 mg/dl (8.5-10.1); Est GFR (African American) 109.8; Est GFR (Non-African American) 94.7; Potassium 3.3 mmol/L (3.5-5.1)
--- NOTE | 2019-03-29 08:18 | Surgery Progress Note ---
Date of Service March 29, 2019 Assessment & Plan (1) SBO (small bowel obstruction): POD 1 doing well discussed intra-op findings at length can have some clears today go already out. ambulate today [facility] surgeons economic development coordinator this weekend. Subjective pt feeling pretty good this AM. pain improved. go out. no n/v. Physical Exam Physical Exam: alert/oriented.nad abd: tender as expected. Results & Data Vital Signs (Past 12 Hours) Vital Signs Temp Pulse Pulse Resp BP Pulse Ox 03/29/19 03:16 36.8 C 102 H 16 121/63 97 03/28/19 23:56 37.1 C 96 H 16 122/63 94 03/28/19 21:28 37.0 C 93 H 16 134/55 L 99 03/28/19 20:30 36.7 C 89 16 124/70 98 PG Care Time/CCT Total # of Minutes Spent Total Time Spent with Patient: Total time spent is greater than 50% in coordination of care (as documented) at patient's floor/unit and/or counseling patient:
[2019-03-29] MEDS: ENOXAPARIN INJ 40 MG/0.4 ML SYR SQ SCH (09:25)
[2019-03-29] MEDS: D5W AND 1/2NSS + 20MEQ KCL 20 MEQ/1,000 ML BAG IV SCH ×2 (09:50→19:09)
[2019-03-29] MEDS: SODIUM CHLORIDE 0.9% 1000ML 1,000 ML IV SCH (16:21)
[2019-03-30] MEDS: ACETAMINOPHEN 1,000 MG/100 ML VIAL IV SCH ×2 (02:07→10:22)
[2019-03-30] MEDS: D5W AND 1/2NSS + 20MEQ KCL 20 MEQ/1,000 ML BAG IV SCH ×3 (04:33→23:12)
--- NOTE | 2019-03-30 09:23 | Surgery Progress Note ---
Date of Service March 30, 2019 Assessment & Plan (1) SBO (small bowel obstruction): Postoperative day 2 status post ileocecal resection Stable Peristalsis is returning but has not had flatus or bowel movement as yet and is burping Would continue with clear liquids for now Encouraged ambulation Subjective Postoperative day #2 status post ileocecal resection Tolerating clear liquid diet Having irritation is not of flatus or bowel movement No nausea however Has not ambulated much Physical Exam Gastrointestinal (Abdomen): Inspection/Auscultation: normal bowel sounds and + abdominal surgical incision (Clean dry and intact); abdomen not distended Percussion/Palpation: + abdomen tender (Incisional only) and abdomen soft Results & Data Vital Signs (Past 12 Hours) Vital Signs Temp Pulse Pulse Resp BP BP Pulse Ox 03/30/19 07:41 36.8 C 84 16 145/77 H 97 03/30/19 03:30 37.3 C 89 16 121/61 95 03/29/19 23:48 37.2 C 90 16 129/65 96
[2019-03-30 09:40] LABS: Basophils # (auto) 0.02 K/uL (0-0.2); Basophils % (auto) 0.2 %; Eosinophils # (auto) 0.11 K/uL (0-0.5); Hematocrit (blood only) 31.8 % (37-47); Hemoglobin 10.8 g/dL (12.0-16.0); Immature Granulocytes # (auto) 0.02 K/uL (0.00-0.02); Immature Granulocytes % (auto) 0.2 %; Mean Corpuscular Hemoglobin 29.6 pg (25-34); Mean Corpuscular Volume 87.1 fL (80-100); Monocytes # (auto) 0.85 K/uL (0.11-0.59); Monocytes % (auto) 7.6 %; Neutrophils # (auto) 9.15 K/uL (1.4-6.5); Platelet Count 314 K/uL (130-400); RDW Coefficient of Variation 14.1 % (11.5-14.5); RDW Standard Deviation 44.7 fL (36.4-46.3); Red Blood Count 3.65 M/uL (4.2-5.4); White Blood Count 11.15 K/uL (4.8-10.8)
[2019-03-30 10:13] LABS: BUN Creatinine Ratio 10.9 (10-20); Creatinine Clr Calc Pharmacy 70.7 ml/min; Est GFR (African American) 109.2; Est GFR (Non-African American) 94.2; Potassium 3.1 mmol/L (3.5-5.1)
[2019-03-30] MEDS: ENOXAPARIN INJ 40 MG/0.4 ML SYR SQ SCH (10:20)
[2019-03-30] MEDS: SODIUM CHLORIDE 0.9% 1000ML 1,000 ML IV SCH (14:48)
[2019-03-31 06:08] LABS: Basophils # (auto) 0.03 K/uL (0-0.2); Basophils % (auto) 0.3 %; Eosinophils # (auto) 0.29 K/uL (0-0.5); Eosinophils % (auto) 2.7 %; Hematocrit (blood only) 32.6 % (37-47); Hemoglobin 11.5 g/dL (12.0-16.0); Immature Granulocytes # (auto) 0.02 K/uL (0.00-0.02); Immature Granulocytes % (auto) 0.2 %; Lymphocytes # (auto) 1.87 K/uL (1.2-3.4); Lymphocytes % (auto) 17.4 %; Mean Corpuscular Hemoglobin 29.9 pg (25-34); Mean Corpuscular Hgb Conc 35.3 g/dL (32-36); Mean Corpuscular Volume 84.7 fL (80-100); Mean Platelet Volume 8.5 fL (7.4-10.4); Monocytes # (auto) 1.07 K/uL (0.11-0.59); Monocytes % (auto) 9.9 %; Neutrophils # (auto) 7.48 K/uL (1.4-6.5); Neutrophils % (auto) 69.5 %; Platelet Count 327 K/uL (130-400); RDW Coefficient of Variation 13.6 % (11.5-14.5); RDW Standard Deviation 42.4 fL (36.4-46.3); Red Blood Count 3.85 M/uL (4.2-5.4); White Blood Count 10.76 K/uL (4.8-10.8)
[2019-03-31 06:48] LABS: BUN Creatinine Ratio 7.6 (10-20); Calcium 8.1 mg/dl (8.5-10.1); Creatinine Clr Calc Pharmacy 88.8 ml/min; Est GFR (African American) 117.6; Est GFR (Non-African American) 101.5; Potassium 2.9 mmol/L (3.5-5.1)
[2019-03-31] MEDS ORDERED: POTASSIUM CHLORIDE 20 MEQ TABCR PO STA (07:16)
--- NOTE | 2019-03-31 07:47 | Surgery Progress Note ---
Date of Service March 31, 2019 Assessment & Plan (1) SBO (small bowel obstruction): Postoperative day 2 status post ileocecectomy No bowel movement or flatus yet but has bowel sounds Can advance to full liquid diet Encouraged her to not be too aggressive with her diet as far as amount of intake Potassium is 2.9, will replace orally and recheck White blood cell count down to 10.7 Encouraged ambulation Subjective Postoperative day #2 status post ileocecectomy No bowel movement as yet Had very brief episode of nausea yesterday but has resolved and has not returned. Ambulating Having mild incisional discomfort only Physical Exam Gastrointestinal (Abdomen): Inspection/Auscultation: normal bowel sounds and + abdominal surgical incision (Clean, dry and intact); abdomen not distended Percussion/Palpation: + abdomen tender (Incisional only) and abdomen soft Results & Data Vital Signs (Past 12 Hours) Vital Signs Temp Pulse Pulse Resp BP BP Pulse Ox 03/31/19 07:34 36.7 C 89 16 155/79 H 96 03/31/19 03:50 37.1 C 89 16 163/83 H 156/81 H 96 03/30/19 22:58 37.3 C 98 H 16 140/76 96 Laboratory Results 03/31/19 03/31/19 03/30/19 Range/Units 05:43 05:43 09:10 WBC 10.76 (4.8-10.8) K/uL RBC 3.85 L (4.2-5.4) M/uL Hgb 11.5 L (12.0-16.0) g/dL Hct 32.6 L (37-47) % MCV 84.7 (80-100) fL MCH 29.9 (25-34) pg MCHC 35.3 (32-36) g/dL RDW Std Deviation 42.4 (36.4-46.3) fL RDW Coeff of Taniya 13.6 (11.5-14.5) % Plt Count 327 (130-400) K/uL MPV 8.5 (7.4-10.4) fL Immature Gran % (Auto) 0.2 % Neut % (Auto) 69.5 % Lymph % (Auto) 17.4 % [place] % (Auto) 9.9 % Eos % (Auto) 2.7 % Baso % (Auto) 0.3 % Immature Gran # (Auto) 0.02 (0.00-0.02) K/uL Neut # (Auto) 7.48 H (1.4-6.5) K/uL Lymph # (Auto) 1.87 (1.2-3.4) K/uL [place] # (Auto) 1.07 H (0.11-0.59) K/uL Eos # (Auto) 0.29 (0-0.5) K/uL Baso # (Auto) 0.03 (0-0.2) K/uL Sodium 136 136 (136-145) mmol/L Potassium 2.9 L 3.1 L (3.5-5.1) mmol/L Chloride 102 103 (98-107) mmol/L Carbon Dioxide 27 25 (21-32) mmol/L Anion Gap 7.0 8.0 (3-11) BUN 4 L 6 L D (7-18) mg/dl Creatinine 0.47 L 0.59 L (0.6-1.2) mg/dl Est Cr Clr Drug Dosing 88.8 70.7 ml/min Est GFR ( Amer) 117.6 109.2 Est GFR (Non-Af Amer) 101.5 94.2 BUN/Creatinine Ratio 7.6 L 10.9 (10-20) Glucose 117 H 172 H (70-99) mg/dl Calcium 8.1 L 8.0 L (8.5-10.1) mg/dl 03/30/19 Range/Units 09:10 WBC 11.15 H (4.8-10.8) K/uL RBC 3.65 L (4.2-5.4) M/uL Hgb 10.8 L (12.0-16.0) g/dL Hct 31.8 L (37-47) % MCV 87.1 (80-100) fL MCH 29.6 (25-34) pg MCHC 34.0 (32-36) g/dL RDW Std Deviation 44.7 (36.4-46.3) fL RDW Coeff of Taniya 14.1 (11.5-14.5) % Plt Count 314 (130-400) K/uL MPV 9.0 (7.4-10.4) fL Immature Gran % (Auto) 0.2 % Neut % (Auto) 82.0 % Lymph % (Auto) 9.0 % [place] % (Auto) 7.6 % Eos % (Auto) 1.0 % Baso % (Auto) 0.2 % Immature Gran # (Auto) 0.02 (0.00-0.02) K/uL Neut # (Auto) 9.15 H (1.4-6.5) K/uL Lymph # (Auto) 1.00 L (1.2-3.4) K/uL [place] # (Auto) 0.85 H (0.11-0.59) K/uL Eos # (Auto) 0.11 (0-0.5) K/uL Baso # (Auto) 0.02 (0-0.2) K/uL Sodium (136-145) mmol/L Potassium (3.5-5.1) mmol/L Chloride (98-107) mmol/L Carbon Dioxide (21-32) mmol/L Anion Gap (3-11) BUN (7-18) mg/dl Creatinine (0.6-1.2) mg/dl Est Cr Clr Drug Dosing ml/min Est GFR ( Amer) Est GFR (Non-Af Amer) BUN/Creatinine Ratio (10-20) Glucose (70-99) mg/dl Calcium (8.5-10.1) mg/dl
[2019-03-31] MEDS: ENOXAPARIN INJ 40 MG/0.4 ML SYR SQ SCH (08:36)
[2019-03-31] MEDS: D5W AND 1/2NSS + 20MEQ KCL 20 MEQ/1,000 ML BAG IV SCH ×2 (08:36→18:15)
[2019-03-31] MEDS: SODIUM CHLORIDE 0.9% 1000ML 1,000 ML IV SCH (17:53)
[2019-04-01] MEDS: D5W AND 1/2NSS + 20MEQ KCL 20 MEQ/1,000 ML BAG IV SCH ×3 (04:11→23:40)
[2019-04-01 06:16] LABS: Basophils # (auto) 0.03 K/uL (0-0.2); Basophils % (auto) 0.3 %; Eosinophils # (auto) 0.48 K/uL (0-0.5); Eosinophils % (auto) 5.3 %; Hematocrit (blood only) 33.9 % (37-47); Hemoglobin 11.9 g/dL (12.0-16.0); Immature Granulocytes # (auto) 0.02 K/uL (0.00-0.02); Immature Granulocytes % (auto) 0.2 %; Lymphocytes # (auto) 1.78 K/uL (1.2-3.4); Lymphocytes % (auto) 19.6 %; Mean Corpuscular Hemoglobin 30.1 pg (25-34); Mean Corpuscular Hgb Conc 35.1 g/dL (32-36); Mean Corpuscular Volume 85.8 fL (80-100); Mean Platelet Volume 8.8 fL (7.4-10.4); Monocytes # (auto) 0.96 K/uL (0.11-0.59); Monocytes % (auto) 10.6 %; Platelet Count 378 K/uL (130-400); RDW Coefficient of Variation 13.6 % (11.5-14.5); RDW Standard Deviation 43.3 fL (36.4-46.3); Red Blood Count 3.95 M/uL (4.2-5.4); White Blood Count 9.07 K/uL (4.8-10.8)
[2019-04-01 06:46] LABS: BUN Creatinine Ratio 7.4 (10-20); Calcium 8.4 mg/dl (8.5-10.1); Creatinine Clr Calc Pharmacy 92.7 ml/min; Est GFR (African American) 119.3; Potassium 3.3 mmol/L (3.5-5.1)
[2019-04-01] MEDS: ENOXAPARIN INJ 40 MG/0.4 ML SYR SQ SCH (07:52)
--- NOTE | 2019-04-01 08:43 | Surgery Progress Note ---
Date of Service April 01, 2019 Assessment & Plan (1) SBO (small bowel obstruction): POD 4 doing well awaiting full return of bowel fx awaiting path report d/c planning replace lytes. Subjective doing well. no BM yet. no n/v. pain control adequate. tolerating full liquids without difficulty. Physical Exam Physical Exam: alert. nad abd: soft. incision looks good. no sign of infection. Results & Data Vital Signs (Past 12 Hours) Vital Signs Temp Pulse Pulse Resp BP BP Pulse Ox 04/01/19 07:57 37.0 C 88 16 151/82 H 97 04/01/19 03:25 36.8 C 92 H 16 130/72 97 03/31/19 23:10 37 C 90 16 151/79 H 96 PG Care Time/CCT Total # of Minutes Spent Total Time Spent with Patient: Total time spent is greater than 50% in information technology coordinator rdination of care (as documented) at patient's floor/unit and/or counseling patient:
[2019-04-01] MEDS: POTASSIUM CHLORIDE / WTR 10 MEQ/100 ML PLCT IV SCH ×2 (10:42→12:22)
[2019-04-01] MEDS: SODIUM CHLORIDE 0.9% 1000ML 1,000 ML IV SCH (15:04)
--- NOTE | 2019-04-02 08:38 | Surgery Progress Note ---
Date of Service April 02, 2019 Assessment & Plan (1) SBO (small bowel obstruction): doing well path still pending will advance diet. re-eval this afternoon for possible d/c instructions given. Subjective pt feeling fine. minimal pain. david full liquids. no n/v. no bm yet Physical Exam Physical Exam: alert. nad abd: soft. nd. minimal incision pain. wound looks good Results & Data Vital Signs (Past 12 Hours) Vital Signs Temp Pulse Pulse Resp BP Pulse Ox 04/02/19 07:28 37.5 C 105 H 18 144/80 H 96 04/02/19 03:55 37.1 C 95 H 16 147/76 H 97 04/01/19 23:14 37.1 C 100 H 18 152/82 H 97 PG Care Time/CCT Total # of Minutes Spent Total Time Spent with Patient: Total time spent is greater than 50% in coordination of care (as documented) at patient's floor/unit and/or counseling patient:
[2019-04-02] MEDS: ENOXAPARIN INJ 40 MG/0.4 ML SYR SQ SCH (08:55)
[2019-04-02] MEDS ORDERED: HYDROCODONE/ACETAMOPHEN 5/325MG TAB PO PRN ×3 (08:58→09:09)
[2019-04-02] MEDS: D5W AND 1/2NSS + 20MEQ KCL 20 MEQ/1,000 ML BAG IV SCH (09:56)
--- NOTE | 2019-04-11 00:29 | Discharge Summary ---
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 SECONDARY DISCHARGE DIAGNOSIS: Hypertension. PROCEDURES PERFORMED: Diagnostic laparoscopy with open ileocecectomy, partial small bowel resection, peritoneal biopsy and mesenteric biopsy. HOSPITAL COURSE: The patient is a 68-year-old female with a small-bowel obstruction, not able to tolerate more than full-liquid diet at home, now taken to the operating room for further evaluation. We were able to identify the lesion in the terminal ileum laparoscopically, and at that point, converted to open ileocecectomy with primary anastomosis. The procedure was well tolerated. She was transferred to the surgical floor, kept n.p.o. overnight. She was able to tolerate clear liquids on postoperative day 1. She was advanced to full liquids on day 3. Her potassium was 2.9, at that time was supplemented orally and improved the next day to 3.3. She was able to tolerate full liquids over day 4. Lovenox was used for DVT prophylaxis. Her blood pressure remained stable. She was doing well and advanced to regular diet on day #5. She had a bowel movement that afternoon was stable for discharge. Her abdomen was soft. Incision was clean and dry. DISCHARGE INSTRUCTIONS: Discharge home. Follow up with Dr. Gonzalez in approximately 1 week. DISCHARGE MEDICATIONS: [place] 1-2 tablets every 4 hours as needed. Continue home medications, lisinopril/hydrochlorothiazide 10/12.5 mg daily, gemfibrozil 600 mg b.i.d., atorvastatin 40 mg at bedtime, Colace as needed, calcium and vitamin D supplement. [facility]
--- NOTE | 2019-04-11 06:23 | Coding Query ---
PATHOLOGY To promote full compliance with coding requirements relating to patient care, physician participation is requested in all cases of geospatial imagery intelligence analyst uncertainty. Please assist us with the question(s) below: Patient with diagnostic lap with open ileocecotomy- peritoneal and mesenteric biopsies done. Please provide diagnosis for peritoneal and mesenteric biopsies. Thank you ! [facility] Diagnosis(es): metastatic goblet cell carcinoid tumor MTDD
== END 2019-04-02 13:45 | disposition home or self-care (01) | DRG 330 ==
LOC: ASU 09:05 → 3W 15:07

== ENCOUNTER 2019-12-12 12:07 | Inpatient (IN) ==
[2019-12-12] MEDS ORDERED: ONDANSETRON INJ 2 MG/ML 2 ML VIAL IV STA (12:22)
[2019-12-12] MEDS ORDERED: fentaNYL citrate 100 MCG/2 ML VIAL IV PRN (12:22)
[2019-12-12] MEDS ORDERED: SODIUM CHLORIDE 0.9% 1000ML 1,000 ML IV SCH (12:30)
--- NOTE | 2019-12-12 12:45 | Emergency Department Note ---
Impression & Plan SBO (small bowel obstruction), Abdominal pain, Nausea & vomiting ED Provider Note NAME: JOVANY CAIN AGE: 69 SEX: F : 1950 ARRIVES VIA: Walk-In INFORMANT: Patient, ED PROVIDER(S): Iain Anna DO CHIEF COMPLAINT: Nausea vomiting HPI: The patient is a 69-year-old female who presented to the emergency department for an evaluation of nausea and vomiting. The patient states that she started having nausea and vomiting last evening. She had approximately 4 episodes of nausea vomiting. The patient also describes abdominal pain. The pain is diffuse but worse in the upper abdomen. The patient states she noticed bilious emesis. She has a history of multiple surgeries on her abdomen in the past. One was for cancer and one was for an appendiceal carcinoma. The patient states that she had nausea and vomiting at that time and also has a history of bowel obstruction. She denies having any chest pain or trouble breathing. She does complain of generalized weakness. She called her primary care physician's office and was sent to the emergency department for further evaluation. She states her pain is mild at this time. The patient denies having any fever cough or recent travel. ROS: See above HPI for pertinent positives & negatives. A total of 10 systems reviewed and were otherwise negative. PAST MEDICAL HISTORY: See Below PAST SURGICAL HISTORY: See Below FAMILY HISTORY: See Below SOCIAL HISTORY: See Below HOME MEDICATIONS: See Below ALLERGIES: See Below VITALS: See Below PHYSICAL EXAMINATION: GENERAL: Patient is awake alert in no acute distress patient is resting c omfortably and showing no signs of anxiety EYES: The conjunctivae are clear. The pupils are round and reactive. EARS, NOSE, MOUTH AND THROAT: The nose is without any evidence of any deformity. Mucous membranes are dry. NECK: The neck is nontender and supple. RESPIRATORY: Normal respiratory effort is noted there is no evidence of wheezing rhonchi or rales CARDIOVASCULAR: Regular rate and rhythm noted there no murmurs rubs or gallops normal S1 normal S2. GASTROINTESTINAL: The abdomen is mildly distended but soft. There is diffuse tenderness especially in the upper abdomen. There is no guarding or rigidity. MUSCULOSKELETAL/EXTREMITIES: There is no evidence of gross deformity full range of motion is noted in the hips and shoulders. SKIN: There is no obvious evidence of any rash. There are no petechiae, pallor or cyanosis noted. NEUROLOGIC: Patient is awake alert and oriented x3. MEDICAL DECISION MAKING: The patient is a 69-year-old female who presented to the emergency department for an evaluation of nausea and vomiting. The patient has had multiple surgeries on her abdomen for an appendiceal carcinoma as well as cancer. The patient states that she did have a previous bowel obstruction in the past. She presented today for abdominal pain and bilious emesis. The patient was treated with IV fluids and IV pain medication. She was also treated with IV antiemetics. She was feeling significantly improved on reevaluation. I disc ussed the patient's laboratory and radiographic studies with her. Her CAT scan appears to be consistent with bowel obstruction. The patient was not actively vomiting at this time. I discussed this case with the on-call [facility] hospitalist group. The on-call general surgical group was also notified about the patient. They will evaluate the patient for further management and disposition. Triage Nursing notes reviewed. Prior medical records reviewed Vital Signs: reviewed and remarkable for hypertension and tachycardia. Differential diagnosis: Gastroenteritis, food borne illness, infections, appendicitis, diverticulitis, inflammatory bowel disease, obstruction, GI bleed, biliary pathology, volvulus, as well as other pathologies. ER treatment provided: See below Diagnostics interpreted by me: ECG: EKG was obtained in the emergency department. My interpretation is normal sinus rhythm at 98 bpm. There were no acute ST segment abnormalities noted. There is no ectopy. There is no specific change compared to a tracing from July 24, 2019. Cardiac Monitoring: An order was placed for continuous cardiac monitoring. The monitor shows a rate of 115 with sinus tachycardia rhythm. Laboratory studies: As stated above and show below. Imaging studies: See below Consultation(s): 1315: Surgery was notified about the patient. There was a return call from [facility] notifying us to admit the patient to medicine and they would follow in consultation. 1320: I discussed this case with Dr. Tello Wright. He was on-call for the [facility] hospitalist group. He will evaluate the patient in the emergency department for further management and disposition. Past Med/Surg History Medical History Abdominal pain (Acute) Anemia HX Anxiety Colon cancer (Chronic) History of histoplasmosis scar tissue - lung History of seizures as a child last seizure at age 5 HTN (hypertension) (Chronic) Hypercholesterolemia (Chronic) Migraine HX Port-A-Cath in place (05/03/19) Insertion of Mediport with Fluroscopy Left Subclavian Dr. Gonzalez 05/03/19 Pulmonary nodules (Chronic) SBO (small bowel obstruction) (Resolved) DECEMBER 2018- RESOLVED Weight loss, unintentional (COLON CA ISSUES) Surgical History History of bilateral tubal ligation History of bowel resection APPROX 12 IN COLON REMOVED MAR 2019- [facility] DR. GONZALEZ History of colonoscopy History of knee surgery as a child History of laparoscopy History of surgery bladder tack History of tubal ligation Family History Unknown Hypertension Mother Lung cancer Brother Colorectal cancer Social History Preferred Language: Danish Communication Ability: Effective Visual Impairment: No Limitations Automotive Teacher Required: No Beliefs That Will Affect Care: None marital status: Current Living Situation: Spouse current occupational status: retired Feels Safe at Home: Yes Smoking Status: Never smoker Second Hand Exposure: No ; Hx Alcohol Use: Yes Alcohol type: wine Hx Substance Use: No Allergies Allergies Allergy/AdvReac Type Severity Reaction Status Date / Time trazodone AdvReac Intermediate Dizziness Verified 12/12/19 13:29 Home Meds Home Medications Medication Instructions Recorded Confirmed atorvastatin 40 mg PO HS 12/26/18 12/12/19 calcium carbonate-vitamin D3 1 tab PO QAM 12/26/18 12/12/19 [Calcium 500 + D] gemfibrozil 600 mg PO BID 12/26/18 12/12/19 alprazolam 0.25 mg PO HS PRN 04/29/19 12/12/19 sertraline 50 mg PO HS 12/12/19 12/12/19 Results & Data (ED) Vital Signs Vital Signs - 24 hr 12/12/19 12:16 12/12/19 12:48 12/12/19 12:51 Temperature 36.4 C L Temperature Source Oral Pulse Rate 120 H 97 H Pulse Rate from SpO2 Sensor 97 H Respiratory Rate 19 15 Respiratory Effort / Characteristics Non-Labored Spontaneous Respiratory Depth Normal Respiratory Pattern Regular Blood Pressure 127/74 165/78 H Blood Pressure Mean 91 105 Pulse Oximetry 97 96 96 Oxygen Delivery Method Room Air Room Air Sepsis Recent Fever Within 48 Hours No Sepsis New/Unexplained Change in Mental Status No Sepsis Action Taken by Nursing No Action Required 12/12/19 13:15 Temperature Temperature Source Pulse Rate 103 H Pulse Rate from SpO2 Sensor 104 H Respiratory Rate 15 Respiratory Effort / Characteristics Respiratory Depth Respiratory Pattern Blood Pressure 160/81 H Blood Pressure Mean 102 Pulse Oximetry 98 Oxygen Delivery Method Sepsis Recent Fever Within 48 Hours Sepsis New/Unexplained Change in Mental Status Sepsis Action Taken by Snf Medications Current Medication List: was personally reviewed by me Laboratory Data Attestation: I reviewed the patient's lab results. Result diagrams: 12/12/19 12:40 12/12/19 12:40 Lab Results 12/12/19 12/12/19 12/12/19 Range/Units 12:40 12:40 12:46 WBC 12.41 H (4.8-10.8) K/uL RBC 4.83 (4.2-5.4) M/uL Hgb 15.2 (12.0-16.0) g/dL POC Hgb 16.0 (12.0-16.0) g/dl Hct 43.9 (37-47) % POC Hct 47 (37-47) % MCV 90.9 (80-100) fL MCH 31.5 (25-34) pg MCHC 34.6 (32-36) g/dL RDW Std Deviation 43.6 (36.4-46.3) fL RDW Coeff of Taniya 13.2 (11.5-14.5) % Plt Count 347 (130-400) K/uL MPV 8.8 (7.4-10.4) fL Immature Gran % (Auto) 0.2 % Neut % (Auto) 89.0 % Lymph % (Auto) 5.8 % [place] % (Auto) 4.8 % Eos % (Auto) 0.0 % Baso % (Auto) 0.2 % Immature Gran # (Auto) 0.02 (0.00-0.02) K/uL Neut # (Auto) 11.06 H (1.4-6.5) K/uL Lymph # (Auto) 0.72 L (1.2-3.4) K/uL [place] # (Auto) 0.59 (0.11-0.59) K/uL Eos # (Auto) 0.00 (0-0.5) K/uL Baso # (Auto) 0.02 (0-0.2) K/uL POC Sodium 138 (135-144) mmol/L Sodium 136 (136-145) mmol/L POC Potassium 3.2 L (3.3-5.0) mmol/L Potassium 3.2 L (3.5-5.1) mmol/L POC Chloride 102 (101-112) mmol/L Chloride 103 (98-107) mmol/L Carbon Dioxide 22 (21-32) mmol/L POC Total CO2 22 L (24-31) mEq/l Anion Gap 11.0 (3-11) POC Anion Gap 19.0 (16-25) mmol/L POC BUN 19 H (7-18) mg/dl BUN 18 (7-18) mg/dl Creatinine 0.93 (0.6-1.2) mg/dl POC Creatinine 0.6 (0.6-1.3) mg/dl Est Cr Clr Drug Dosing 39.7 ml/min Est GFR ( Amer) 72.7 Est GFR (Non-Af Amer) 62.7 BUN/Creatinine Ratio 19.4 (10-20) Glucose 166 H (70-99) mg/dl POC Glucose (other) 167 H (70-99) mg/dl Calcium 10.1 (8.5-10.1) mg/dl POC Ioniz Calcium Aliza 1.24 (1.12-1.32) mmol/l Total Bilirubin 0.7 (0.2-1) mg/dl AST 23 (15-37) U/L ALT 37 (12-78) U/L Alkaline Phosphatase 138 H (45-117) U/L Troponin I < 0.015 (0-0.045) ng/ml Total Protein 8.9 H (6.4-8.2) gm/dl Albumin 4.7 (3.4-5.0) gm/dl Globulin 4.2 H (2.5-4.0) gm/dl Albumin/Globulin Ratio 1.1 (0.9-2) Lipase 84 (73-393) U/L Administered Medications Fentanyl Citrate (Fentanyl Citrate) 50 mcg IV Q15M PRN PRN Reason: Pain Stop: 12/26/19 12:21 Last Admin: 12/12/19 12:36 Dose: 50 mcg Documented by: [id number] Ioversol (Optiray 320 100ml) 93 ml IV ONCE PRN PRN Reason: Interaction Checking Stop: 12/16/19 13:06 Last Admin: 12/12/19 13:08 Dose: 93 ml Documented by: [id number] Discontinued Medications Sodium Chloride (Nss 1000ml) 1,000 mls @ 999 mls/hr IV .Q1H1M BAKARI Stop: 12/12/19 13:30 Last Admin: 12/12/19 12:36 Dose: 999 mls/hr Documented by: [id number] Ondansetron HCl (Zofran) 4 mg IV NOW STA Stop: 12/12/19 12:23 Last Admin: 12/12/19 12:36 Dose: 4 mg Documented by: [id number] Imaging Data Radiologist's Impression: XR chest 1V portable CLINICAL HISTORY: 69 years-old Female presenting with vomiting. TECHNIQUE: Portable upright AP view of the chest was obtained. COMPARISON: 05/03/2019. FINDINGS: Left subclavian Mediport terminates in the mid SVC. Cardiomediastinal silhouette normal. No focal [place]. No large effusion or pneumothorax. Osseous structures normal. Upper abdomen normal. IMPRESSION: 1. No acute cardiopulmonary disease. ACT 112: Negative or not required by law. Electronically signed by: Virgil Barbosa M.D. 12/12/2019 12:[address] OF THE ABDOMEN AND PELVIS WITH CONTRAST CLINICAL HISTORY: Vomiting. History of appendiceal carcinoma. COMPARISON STUDY: CT of the abdomen and pelvis July 11, 2019. TECHNIQUE: Following IV administration of 93 mL of Optiray-320, axial images of the abdomen and pelvis were obtained from the lung bases to the proximal femurs. Images were reviewed in the axial, sagittal, and coronal planes. IV contrast was administered without complication. Automated exposure control was utilized for the study. A dose lowering technique was utilized adhering to the principles of ALARA. CT DOSE: 230.69 mGycm FINDINGS: Several pulmonary nodules within the lower lungs are unchanged since chest CT of April 22, 2019. These are probably benign. Fatty infiltration of the liver is noted. No hepatic lesions are present. The spleen, adrenal glands and pancreas are normal. A few subcentimeter left renal lesions are too small to characterize. There is no hydronephrosis. Major vasculature is patent. The stomach is moderately distended and fluid-filled as is the duodenum and proximal small bowel to the level of the distal jejunum. Transition point within the upper pelvis on image 299 of 446 is noted. The more distal small bowel is decompressed. No pneumatosis, free air or portal venous gas is present. No lymphadenopathy is present. The appendix is surgically absent. Mild wall thickening of the sigmoid colon is noted. The uterus and ovaries are surgically absent. No suspicious osseous lesions are noted. No peritoneal nodules are noted. There is no ascites. No pneumatosis, free air or portal venous gas is present. IMPRESSION: 1. Mildly dilated jejunum, duodenum and stomach with transition point within the distal jejunum. The findings suggest a partial small bowel obstruction. No free air, pneumatosis or portal venous gas. 2. Fatty infiltration of the liver. ACT 112: Negative or not required by law. Electronically signed by: Milton Lizarraga M.D. 12/12/2019 1:31 PM Blood Pressure Blood Pressure Findings: Elevated blood pressure Blood Pressure Disposition: further management by hospitalist Discharge Plan Visit Data Chief Complaint: Vomiting Stated Complaint: THROWING UP SINCE LAST NIGHT ED Provider: Iain Anna Discharge Problem: SBO (small bowel obstruction), Abdominal pain, Nausea & vomiting Patient Disposition: Being Evaluated by Hospitalist Condition: Good Forms Stand Alone Forms: [employer] Prescriptions Prescriptions: No Action alprazolam 0.25 mg tablet 0.25 mg PO HS PRN (Reason: Anxiety) RF: 0 atorvastatin 40 mg tablet 40 mg PO HS RF: 0 gemfibrozil 600 mg tablet 600 mg PO BID RF: 0 calcium carbonate-vitamin D3 [Calcium 500 + D] 500 mg(1,250mg) -200 unit Tablet 1 tab PO QAM RF: 0 sertraline 50 mg tablet 50 mg PO HS RF: 0 Referrals Referrals: Martell Esparza MD [Primary Care Provider] - Discharge Problem: Abdominal pain Qualifiers: Abdominal location: upper abdomen, unspecified Qualified Code(s): R10.10 - Upper abdominal pain, unspecified Nausea & vomiting Qualifiers: Vomiting type: unspecified Vomiting Intractability: non-intractable Qualified Code(s): R11.2 - Nausea with vomiting, unspecified
--- NOTE | 2019-12-12 12:48 | XRay Report ---
XR chest 1V portable CLINICAL HISTORY: 69 years-old Female presenting with vomiting. TECHNIQUE: Portable upright AP view of the chest was obtained. COMPARISON: 05/03/2019. FINDINGS: Left subclavian Mediport terminates in the mid SVC. Cardiomediastinal silhouette normal. No focal [place]. No large effusion or pneumothorax. Osseous structures normal. Upper abdomen normal. IMPRESSION: 1. No acute cardiopulmonary disease. ACT 112: Negative or not required by law. Electronically signed by: Virgil Barbosa M.D. 12/12/2019 12:46 PM
[2019-12-12 12:50] LABS: Basophils # (auto) 0.02 K/uL (0-0.2); Basophils % (auto) 0.2 %; Hematocrit (blood only) 43.9 % (37-47); Hemoglobin 15.2 g/dL (12.0-16.0); Immature Granulocytes # (auto) 0.02 K/uL (0.00-0.02); Immature Granulocytes % (auto) 0.2 %; Lymphocytes # (auto) 0.72 K/uL (1.2-3.4); Lymphocytes % (auto) 5.8 %; Mean Corpuscular Hemoglobin 31.5 pg (25-34); Mean Corpuscular Hgb Conc 34.6 g/dL (32-36); Mean Corpuscular Volume 90.9 fL (80-100); Mean Platelet Volume 8.8 fL (7.4-10.4); Monocytes # (auto) 0.59 K/uL (0.11-0.59); Monocytes % (auto) 4.8 %; Neutrophils # (auto) 11.06 K/uL (1.4-6.5); Platelet Count 347 K/uL (130-400); RDW Coefficient of Variation 13.2 % (11.5-14.5); RDW Standard Deviation 43.6 fL (36.4-46.3); Red Blood Count 4.83 M/uL (4.2-5.4); White Blood Count 12.41 K/uL (4.8-10.8)
[2019-12-12 12:59] LABS: iSTAT Creatinine 0.6 mg/dl (0.6-1.3); iSTAT Ionized Calcium 1.24 mmol/l (1.12-1.32); iSTAT Potassium 3.2 mmol/L (3.3-5.0)
[2019-12-12 13:07] LABS: Alanine Aminotransferase 37 U/L (12-78); Albumin Level 4.7 gm/dl (3.4-5.0); BUN Creatinine Ratio 19.4 (10-20); Blood Urea Nitrogen 18 mg/dl (7-18); Calcium 10.1 mg/dl (8.5-10.1); Carbon Dioxide 22 mmol/L (21-32); Chloride 103 mmol/L (98-107); Creatinine Clr Calc Pharmacy 39.7 ml/min; Est GFR (African American) 72.7; Est GFR (Non-African American) 62.7; Glucose 166 mg/dl (70-99); Lipase 84 U/L (73-393); Potassium 3.2 mmol/L (3.5-5.1); Sodium 136 mmol/L (136-145)
[2019-12-12] MEDS ORDERED: IOVERSOL 100ml IV PRN (13:07)
[2019-12-12 13:12] LABS: Albumin Globulin Ratio 1.1 (0.9-2); Alkaline Phosphatase 138 U/L (45-117); Aspartate Aminotransferase 23 U/L (15-37); Bilirubin,Total 0.7 mg/dl (0.2-1); Globulin 4.2 gm/dl (2.5-4.0); Total Protein 8.9 gm/dl (6.4-8.2); Troponin I < 0.015 ng/ml (0-0.045)
--- NOTE | 2019-12-12 13:33 | CT Scan Report ---
CT OF THE ABDOMEN AND PELVIS WITH CONTRAST CLINICAL HISTORY: Vomiting. History of appendiceal carcinoma. COMPARISON STUDY: CT of the abdomen and pelvis July 11, 2019. TECHNIQUE: Following IV administration of 93 mL of Optiray-320, axial images of the abdomen and pelvi s were obtained from the lung bases to the proximal femurs. Images were reviewed in the axial, sagitt al, and coronal planes. IV contrast was administered without complication. Automated exposure contro l was utilized for the study. A dose lowering technique was utilized adhering to the principles of A TREMAYNE. CT DOSE: 230.69 mGycm FINDINGS: Several pulmonary nodules within the lower lungs are unchanged since chest CT of April 22, 2019. These are probably benign. Fatty infiltration of the liver is noted. No hepatic lesions are present. The spleen, adrenal glands and pancreas are normal. A few subcentimeter left renal lesions are too small to characterize. There is no hydronephrosis. Major vasculature is patent. The stomach i s moderately distended and fluid-filled as is the duodenum and proximal small bowel to the level of t he distal jejunum. Transition point within the upper pelvis on image 299 of 446 is noted. The more di stal small bowel is decompressed. No pneumatosis, free air or portal venous gas is present. No lympha denopathy is present. The appendix is surgically absent. Mild wall thickening of the sigmoid colon is noted. The uterus and ovaries are surgically absent. No suspicious osseous lesions are noted. No per itoneal nodules are noted. There is no ascites. No pneumatosis, free air or portal venous gas is pres ent. IMPRESSION: 1. Mildly dilated jejunum, duodenum and stomach with transition point within the distal jejunum. The findings suggest a partial small bowel obstruction. No free air, pneumatosis or portal venous gas. 2. Fatty infiltration of the liver. ACT 112: Negative or not required by law. Electronically signed by: Milton Lizarraga M.D. 12/12/2019 1:31 PM
--- NOTE | 2019-12-12 13:47 | History & Physical Report ---
Date of Service December 12, 2019 Assessment & Plan (1) SBO (small bowel obstruction): CT a/p on admission showed partial SBO with transition point in the distal jejunum. Likely due to prior procedures; no recurrent cancer seen. - Evaluated by GS in the ED -> Appreciate recs; no present need for surgery - If need for surgery arises, patient is considering whether she would want transfer to [facility] to continue care with her surgeon there (Edith Mcfarland). At present, she prefers staying here to attempt conservative therapy and is willing to accept the small risk of possible delay in surgery should an emergent need arise. - NPO - NG tube to be placed with low-intermittent suction. - Pain control (2) ELOISE (acute kidney injury): Baseline Cr ~0.6 with admission Cr. ~0.9. Likely prerenal. 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 Rare diagnosis with features of adenocarcinoma and carcinoid tumor. Treated with chemotherapy by Dr. Helton and cystoreduction and HIPEC at [facility]. No evidence of recurrence either on CT c/a/p during last oncology visits or on CT a/p today where SBO was diagnosed. - Outpatient follow up (4) HTN (hypertension): History of this, but no longer on meds after her weight loss and dealing with her cancer. - On admission, BP is as high as 160/80, but the patient is under stress/in pain. - Monitor BP - Could add hydralazine PRN if SBP > 180 or DBP > 110 or if patient experiences symptoms. None so far. (5) Anxiety associated with depression: No overt anxiety or depression symptoms on interview today. - Hold sertraline while NPO - Ativan PRN for anxiety (6) DVT prophylaxis: High risk with cancer (though not active) and age - Heparin 5000 units SQ Q12h -> Hold if surgery becomes more likely. History of Present Illness Primary Care Provider: Martell Esparza MD 69you F w/ hx of appendiceal adenocarcinoma s/p ileocecectomy who presents with recurrent SBO. The patient was diagnosed with ADENOCARCINOMA EX GOBLET CELL CARCINOID OF THE APPENDIX in 03/2019 after having an SBO that was treated conservatively in 12/2018. She underwent chemotherapy with Dr. Helton and in 09/2019 had cystoreduction and HIPEC (intra-operative chemotherapy) at [facility] under Dr. Edith Mcfarland. She had a tough time with chemotherapy, having loss of appetite, loss of weight, and neuropathy, but had seemed to be getting better and was regaining weight. Her last check-ups with oncology and [facility] surgery were both in 11/2019 and there is no indication of recurrent cancer. Yesterday evening, she began to have nausea and dry heaving. She reports that she had some cramping suprapubic & LLQ abdominal pain that had some mild radiation to the left flank as well. She rates the pain as a 2-3 out of 10 as she reports a high pain threshold. Around 7am, she had an episode of bilious vomiting that caused enough concern for presentation to the ED. She notes that she usually has 1 formed BM in the morning and then several looser stools (2-3) throughout the day since her second surgery. Her last BM was yesterday ~2pm and was normal in consistency and color for her. No hematochezia and no melena noted. She notes she is still passing gas, though less than normal for her. She denies any fever, chills, or sweats. She has no shortness of breath or cough. She and her have been isolating at home with no known sick contacts and no one who has had suspicion for coronavirus. Allergies Allergy/AdvReac Type Severity Reaction Status Date / Time trazodone AdvReac Intermediate Dizziness Verified 12/12/19 13:29 Home Medications Home Medications Medication Instructions Recorded Confirmed Type atorvastatin 40 mg PO HS 12/26/18 12/12/19 History calcium carbonate-vitamin D3 1 tab PO QAM 12/26/18 12/12/19 History [Calcium 500 + D] gemfibrozil 600 mg PO BID 12/26/18 12/12/19 History alprazolam 0.25 mg PO HS PRN 04/29/19 12/12/19 History sertraline 50 mg PO HS 12/12/19 12/12/19 History Past Med/Surg History Medical History Abdominal pain (Acute) Anemia HX Anxiety Colon cancer (Chronic) History of histoplasmosis scar tissue - lung History of seizures as a child last seizure at age 5 HTN (hypertension) (Chronic) Hypercholesterolemia (Chronic) Migraine HX Port-A-Cath in place (05/03/19) Insertion of Mediport with Fluroscopy Left Subclavian Dr. Gonzalez 05/03/19 Pulmonary nodules (Chronic) SBO (small bowel obstruction) (Resolved) DECEMBER 2018- RESOLVED Weight loss, unintentional (COLON [place] ISSUES) Surgical History History of bilateral tubal ligation History of bowel resection APPROX 12 IN COLON REMOVED MAR 2019- [facility] DR. GONZALEZ History of colonoscopy History of knee surgery as a child History of laparoscopy History of surgery bladder tack History of tubal ligation Family History Unknown Hypertension Mother Lung cancer Brother Colorectal cancer Social History Preferred Language: Kazakh Communication Ability: Effective Visual Impairment: No Limitations Ore Miner Required: No Beliefs That Will Affect Care: None marital status: Current Living Situation: Spouse current occupational status: retired Other Information That Helps Us Care for You: No Feels Safe at Home: Yes Safety Concerns: Feels Safe At This Time Smoking Status: Never smoker Second Hand Exposure: No ; Hx Alcohol Use: Yes Alcohol type: wine Hx Substance Use: No Review of Systems Review of Systems: All systems reviewed & are unremarkable except as noted in HPI & below Physical Exam Constitutional: WD/WN, vitals as above Eyes: EOM intact bilaterally; no conjunctival abnormality ENMT: external ear and nose normal, oropharynx normal Neck: trachea midline, no thyromegaly normal visual inspection Respiratory: normal respiratory effort, lungs clear to auscultation no respiratory distress Cardiovascular: Rate/Rhythm: regular rhythm and + tachycardic Heart Sounds: normal S1 and normal S2 Extremities: no edema Gastrointestinal (Abdomen): Inspection/Auscultation: abdomen normal to inspection and + hypoactive bowel sounds; abdomen not distended and no abdominal edema Percussion/Palpation: abdomen soft; abdomen nontender, no guarding and abdomen not rigid Musculoskeletal: no cyanosis or clubbing, extremities motor strength 5/5 Skin: no rashes, warm and dry Neurologic: moves all extremities and awake Psychiatric: Orientation: alert, oriented to person and cooperative Results & Data Results & Data ([facility]) Vital Signs (Past 12 Hours) Vital Signs Temp Pulse Resp BP Pulse Ox 12/12/19 13:15 103 H 15 160/81 H 98 12/12/19 12:51 96 12/12/19 12:48 97 H 15 165/78 H 96 12/12/19 12:16 36.4 C L 120 H 19 127/74 97 PG Care Time/CCT Total # of Minutes Spent Total Time Spent with Patient: Total time spent is greater than 50% in coordination of care (as documented) at patient's floor/unit and/or counseling patient: Coding Level of Care Code 36013 Initial Inpt Care Lvl 3 Diagnoses SBO (small bowel obstruction) K56.609 ELOISE (acute kidney injury) N17.9 Adenocarcinoma C80.1 HTN (hypertension) I10 Hypertension type: essential hypertension Anxiety associated with depression F41.8 DVT prophylaxis Z29.9 (1) HTN (hypertension) Hypertension type: essential hypertension Qualified Code(s): I10 - Essential (primary) hypertension
--- NOTE | 2019-12-12 13:54 | Electrocardiogram Report ---
Test Reason : Blood Pressure : / mmHG Vent. Rate : 098 BPM Atrial Rate : 098 BPM P-R Int : 174 ms QRS Dur : 068 ms QT Int : 378 ms P-R-T Axes : 069 080 068 degrees QTc Int : 482 ms Poor data quality, interpretation may be adversely affected Normal sinus rhythm Normal ECG When compared with ECG of 24-JUL-2019 13:38, No significant change Confirmed by Quinton Alonso ([id number]) on 12/12/2019 1:54:17 PM Referred By: REFERRED SELF Confirmed By:Quinton Alonso
--- NOTE | 2019-12-12 13:57 | Surgery Consultation ---
Date of Consultation December 12, 2019 Assessment & Plan (1) SBO (small bowel obstruction): Being admitted to medical service. Exam is benign. Recommend NG decompression, IVF. Hopefully will improve with conservative measures. Recent procedures at [facility], can discuss option of transfer if surgery becomes necessary. History of Present Illness History of Present Illness 69 y/o female s/p ileocecectomy in 03/25 for carcinoid of appendix, had HIPEC in 09/26 now with nausea and vomiting that began today. Had BM yesterday, some flatus today. Minimal abdominal pain. No obstructive symptoms since her ileocecectomy. No recent changes in diet, had an apple yesterday which was her most fiber for a few days. Allergies Allergy/AdvReac Type Severity Reaction Status Date / Time trazodone AdvReac Intermediate Dizziness Verified 12/12/19 13:29 Home Medications Home Medications Medication Instructions Recorded Confirmed Type atorvastatin 40 mg PO HS 12/26/18 12/12/19 History calcium carbonate-vitamin D3 1 tab PO QAM 12/26/18 12/12/19 History [Calcium 500 + D] gemfibrozil 600 mg PO BID 12/26/18 12/12/19 History alprazolam 0.25 mg PO HS PRN 04/29/19 12/12/19 History sertraline 50 mg PO HS 12/12/19 12/12/19 History Patient History Medical History Abdominal pain (Acute) Anemia HX Anxiety Colon cancer (Chronic) History of histoplasmosis scar tissue - lung History of seizures as a child last seizure at age 5 HTN (hypertension) (Chronic) Hypercholesterolemia (Chronic) Migraine HX Port-A-Cath in place (05/03/19) Insertion of Mediport with Fluroscopy Left Subclavian Dr. Miller 05/03/19 Pulmonary nodules (Chronic) SBO (small bowel obstruction) (Resolved) DECEMBER 2018- RESOLVED Weight loss, unintentional ([place]ON [place] ISSUES) Surgical History History of bilateral tubal ligation History of bowel resection APPROX 12 IN COLON REMOVED MAR 2019- [facility] DR. MILLER History of colonoscopy History of knee surgery as a child History of laparoscopy History of surgery bladder tack History of tubal ligation Family History Unknown Hypertension Mother Lung cancer Brother Colorectal cancer Social History Preferred Language: Sri Lankan Communication Ability: Effective Visual Impairment: No Limitations Performance Specialist Required: No Beliefs That Will Affect Care: None marital status: Current Living Situation: Spouse current occupational status: retired Other Information That Helps Us Care for You: No Feels Safe at Home: Yes Safety Concerns: Feels Safe At This Time Smoking Status: Never smoker Second Hand Exposure: No ; Hx Alcohol Use: Yes Alcohol type: wine Hx Substance Use: No Review of Systems Constitutional: no fever and no chills Gastrointestinal: + nausea, + vomiting and + diarrhea/loose stools (usually formed in AM, loose in afternoon or evening); no abdominal pain Physical Exam Constitutional: WD/WN, vitals as above Respiratory: normal respiratory effort; no respiratory distress Cardiovascular: Rate/Rhythm: regular rate and regular rhythm Gastrointestinal (Abdomen): Inspection/Auscultation: + abdomen distended (minimal) and + abdominal surgical scar Percussion/Palpation: abdomen soft; abdomen nontender Results & Data Vital Signs (Past 12 Hours) Vital Signs Temp Pulse Resp BP Pulse Ox 12/12/19 13:15 103 H 15 160/81 H 98 12/12/19 12:51 96 12/12/19 12:48 97 H 15 165/78 H 96 12/12/19 12:16 36.4 C L 120 H 19 127/74 97 PG Care Time/CCT Total # of Minutes Spent Total Time Spent with Patient: Total time spent is greater than 50% in coordination of care (as documented) at patient's floor/unit and/or counseling patient: Coding Level of Care Code 97564 Initial Inpt Care Lvl 1 Diagnoses SBO (small bowel obstruction) K56.609
[2019-12-12 14:45] LABS: Appearance Urine Clear (Clear); Bacteria Urine Automated Negative (Negative); Bilirubin Urine Negative (Negative); Blood Urine Trace (Negative); Color Urine Yellow; Glucose Urine UA Negative (Negative); Ketones Urine Negative (Negative); Leukocyte Esterase Urine Negative (Negative); Nitrite Urine Negative (Negative); Protein Urine Negative (Negative); RBC Urine Automated 0-4 /hpf (0-4); Specific Gravity Urine 1.027 (1.000-1.030); Urobilinogen Urine Negative (Negative); pH Urine 6.5 (4.5-7.5)
[2019-12-12] MEDS ORDERED: ONDANSETRON INJ 2 MG/ML 2 ML VIAL ONE (15:35)
[2019-12-12] MEDS ORDERED: ONDANSETRON INJ 2 MG/ML 2 ML VIAL IV PRN (16:33)
[2019-12-12] MEDS ORDERED: ACETAMINOPHEN 1,000 MG/100 ML VIAL IV PRN (16:33)
[2019-12-12] MEDS ORDERED: MoRPHine SULFATE 2 MG/ML CARP IV PRN (16:33)
[2019-12-12] MEDS: SODIUM CHLORIDE 0.9% 1000ML 1,000 ML IV SCH (17:20)
--- NOTE | 2019-12-12 19:48 | XRay Report ---
KUB HISTORY: NGT placement COMPARISON: Abdomen and pelvis CT 12/12/2019. FINDINGS: The bowel gas pattern is unremarkable. There are no dilated loops of small bowel to suggest an obstruction. No renal calculi. No ureteral calculi. No pneumoperitoneum or pneumatosis. Contrast within the right renal collecting system. Nasogastric tube terminates in the body of the stomach. IMPRESSION: Nasogastric tube terminates in the body of the stomach. ACT 112: Negative or not required by law. Electronically signed by: Nathan Hernandez M.D. 12/12/2019 7:47 PM
[2019-12-12] MEDS: HEPARIN SOD 5,000 UNIT/0.5 ML VIAL SQ SCH (22:18)
[2019-12-12] MEDS ORDERED: CHLORASEPTIC 1.4% SOLN 180 ML BTL MT PRN (22:26)
[2019-12-13] MEDS: SODIUM CHLORIDE 0.9% 1000ML 1,000 ML IV SCH (05:29)
[2019-12-13 05:48] LABS: Hematocrit (blood only) 38.4 % (37-47); Hemoglobin 12.9 g/dL (12.0-16.0); Mean Corpuscular Hemoglobin 31.3 pg (25-34); Mean Corpuscular Hgb Conc 33.6 g/dL (32-36); Mean Corpuscular Volume 93.2 fL (80-100); Mean Platelet Volume 8.9 fL (7.4-10.4); Platelet Count 290 K/uL (130-400); RDW Coefficient of Variation 13.4 % (11.5-14.5); RDW Standard Deviation 45.6 fL (36.4-46.3); Red Blood Count 4.12 M/uL (4.2-5.4); White Blood Count 10.87 K/uL (4.8-10.8)
[2019-12-13 06:23] LABS: BUN Creatinine Ratio 29.3 (10-20); Calcium 8.8 mg/dl (8.5-10.1); Creatinine Clr Calc Pharmacy 58.5 ml/min; Est GFR (African American) 106.1; Est GFR (Non-African American) 91.5; Magnesium 1.9 mg/dl (1.8-2.4); Phosphorus 3.8 mg/dl (2.5-4.9); Potassium 2.9 mmol/L (3.5-5.1)
--- NOTE | 2019-12-13 08:36 | Surgery Progress Note ---
Date of Service December 13, 2019 Assessment & Plan (1) SBO (small bowel obstruction): Improved NG out put decreasing, could consider clamping NG later this morning as above. pt seen. feeling better but KUB still c/w SBO. no pain or nausea currently. abdomen much less distended than yesterday per her and our PA Bill. +flatus but no bm. appears dry as well. will replace potassium, give gentle fluid bolus and increase IVF to 125/hr repeat KUB tomorrow. keep NGT Dr. Song covering for weekend. Subjective feels better after NG, scant flatus, no nausea Physical Exam Gastrointestinal (Abdomen): Inspection/Auscultation: abdomen not distended Percussion/Palpation: abdomen soft; abdomen nontender Results & Data Vital Signs (Past 12 Hours) Vital Signs Temp Pulse Resp BP BP Pulse Ox 12/13/19 07:38 36.7 C 75 14 138/73 95 12/12/19 22:52 36.4 C L 79 12 164/81 H 96 PG Care Time/CCT Total # of Minutes Spent Total Time Spent with Patient: Total time spent is greater than 50% in coordination of care (as documented) at patient's floor/unit and/or counseling patient: Coding Level of Care Code 71853 Subseq Hosp Care Lvl 3 Diagnoses SBO (small bowel obstruction) K56.609
[2019-12-13] MEDS: HEPARIN SOD 5,000 UNIT/0.5 ML VIAL SQ SCH ×2 (08:44→21:11)
--- NOTE | 2019-12-13 10:19 | XRay Report ---
KUB CLINICAL HISTORY: Small bowel obstruction. COMPARISON STUDY: CT of the abdomen and pelvis and KUB December 12, 2019. FINDINGS: Tip of the nasogastric tube is within the distal body of the stomach. Moderate small bowel dilatation has mildly increased since prior exam. There is no evidence for free air on this supine ex am. Elevation the right hemidiaphragm is unchanged. Surgical staple line within the right lower quadr ant is noted. There is lower abdominal/pelvic surgical clips. IMPRESSION: 1. Findings consistent with a persistent small bowel obstruction. Increase in small bowel dilatation. 2. Tip of nasogastric tube within the stomach. ACT 112: Negative or not required by law. Electronically signed by: Milton Lizarraga M.D. 12/13/2019 10:18 AM
[2019-12-13] MEDS ORDERED: SODIUM CHLORIDE 0.9% 1000ML 500 ML IV ONE (10:40)
[2019-12-13] MEDS: D5W AND 1/2NSS + 20MEQ KCL 20 MEQ/1,000 ML BAG IV SCH ×2 (11:50→19:26)
[2019-12-13 19:15] LABS: BUN Creatinine Ratio 23.5 (10-20); Calcium 8.8 mg/dl (8.5-10.1); Creatinine Clr Calc Pharmacy 78.5 ml/min; Est GFR (African American) 116.8; Est GFR (Non-African American) 100.8; Potassium 2.7 mmol/L (3.5-5.1)
[2019-12-13] MEDS: POTASSIUM CHLORIDE / WTR 10 MEQ/100 ML PLCT IV SCH ×4 (20:16→23:25)
--- NOTE | 2019-12-14 | Hospitalist Progress Note ---
Date of Service December 13, 2019 Assessment & Plan (1) SBO (small bowel obstruction): CT a/p on admission showed partial SBO with transition point in the distal jejunum. Likely due to prior procedures; no recurrent cancer seen. - Evaluated by GS in the ED -> Appreciate recs; no present need for surgery -Appears to be improving with conservative management, doubt patient will require transfer - NPO - NG tube to be placed with low-intermittent suction. -passing gas - Pain control (2) ELOISE (acute kidney injury): resolved. 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 Rare diagnosis with features of adenocarcinoma and carcinoid tumor. Treated with chemotherapy by Dr. Helton and cystoreduction and HIPEC at [place]. No evidence of recurrence either on CT c/a/p during last oncology visits or on CT a/p today where SBO was diagnosed. - Outpatient follow up (4) HTN (hypertension): History of this, but no longer on meds after her weight loss and dealing with her cancer. - On admission, BP is as high as 160/80, but the patient is under stress/in pain. - Monitor BP - Could add hydralazine PRN if SBP > 180 or DBP > 110 or if patient experiences symptoms. None so far. (5) Anxiety associated with depression: No overt anxiety or depression symptoms on interview today. - Hold sertraline while NPO - Ativan PRN for anxiety (6) DVT prophylaxis: High risk with cancer (though not active) and age - Heparin 5000 units SQ Q12h -> Hold if surgery becomes more likely. (7) Hypokalemia: Continue replacement. may stop D5W if potassium does not improve. And place on 1/2 nss with potassium Admission and Anticipated Discharge Date Admission Date: December 12, 2019 Subjective Patientr reports feeling better. Passing gas. No BM. Decreased pain. Review of Systems Review of Systems: All systems reviewed & are unremarkable except as noted in HPI & below Physical Exam Physical Exam: Constitutional: WD/WN, vitals as above Eyes: EOM intact bilaterally; no conjunctival abnormality ENMT: external ear and nose normal, oropharynx normal Neck: trachea midline, no thyromegaly normal visual inspection Respiratory: normal respiratory effort, lungs clear to auscultation no respiratory distress Cardiovascular: Rate/Rhythm: RRR Heart Sounds: normal S1 and normal S2 Extremities: no edema Gastrointestinal (Abdomen): abdomen soft; abdomen nontender, no guarding and abdomen not rigid Musculoskeletal: no cyanosis or clubbing, extremities motor strength 5/5 Skin: no rashes, warm and dry Neurologic: moves all extremities and awake Psychiatric: Orientation: alert, oriented to person and cooperative Results & Data Results & Data ([facility]) Vital Signs (Past 12 Hours) Vital Signs Temp Pulse Resp BP Pulse Ox 12/13/19 23:19 37.0 C 79 16 171/81 H 97 12/13/19 16:06 36.8 C 82 16 167/77 H 96 PG Care Time/CCT Total # of Minutes Spent Total Time Spent with Patient: Total time spent is greater than 50% in coordination of care (as documented) at patient's floor/unit and/or counseling patient: Coding Level of Care Code 90076 Subseq Hosp Care Lvl 3 Diagnoses SBO (small bowel obstruction) K56.609 ELOISE (acute kidney injury) N17.9 Adenocarcinoma C80.1 HTN (hypertension) I10 Hypertension type: essential hypertension Anxiety associated with depression F41.8 DVT prophylaxis Z29.9 Hypokalemia E87.6 Time Spent (min) 35 (1) HTN (hypertension) Hypertension type: essential hypertension Qualified Code(s): I10 - Essential (primary) hypertension
[2019-12-14] MEDS: POTASSIUM CHLORIDE 40 MEQ in SODIUM CHLORIDE 0.45 % 1,000 ML IV SCH ×4 (01:13→23:52)
[2019-12-14 06:48] LABS: BUN Creatinine Ratio 18.3 (10-20); Calcium 8.8 mg/dl (8.5-10.1); Creatinine Clr Calc Pharmacy 80.2 ml/min; Est GFR (African American) 117.6; Est GFR (Non-African American) 101.5; Potassium 3.4 mmol/L (3.5-5.1)
[2019-12-14] MEDS: HEPARIN SOD 5,000 UNIT/0.5 ML VIAL SQ SCH ×2 (08:22→20:06)
--- NOTE | 2019-12-14 09:07 | XRay Report ---
XR KUB/Abdomen 1 view CLINICAL HISTORY: 69 years-old Female presenting with sbo. TECHNIQUE: Single supine view of the abdomen was obtained. COMPARISON: 12/13/[address] from 12/22/2019. FINDINGS: Nasogastric tube terminates in the gastric body with side hole at the level of the gastroesophageal j unction or just within the gastric lumen. Persistent gaseous distention of small bowel which may be s lightly improved. Maximal small bowel diameter measures 3.9 cm, previously 4.9 cm. Scattered surgical clips in the pelvis. Suture margins noted in the right lower quadrant and pelvis. No gross pneumoper itoneum or pneumatosis allowing for supine technique. Allowing for bowel gas and stool, no calcifications to suggest nephrolithiasis. Mild levoscoliotic curvature of the lumbar spine. Left lung base clear. IMPRESSION: 1. Stable to slightly improved gaseous distention of small bowel due to the underlying small bowel o bstruction. 2. Nasogastric tube remains in place with sidehole at the level of the GE junction or just within th e gastric lumen. ACT 112: Negative or not required by law. Electronically signed by: Virgil Barbosa M.D. 12/14/2019 9:06 AM
--- NOTE | 2019-12-14 10:23 | Surgery Progress Note ---
Date of Service December 14, 2019 Assessment & Plan (1) SBO (small bowel obstruction): KUB improved feels better some flatus con't ngt until bowel function returns Subjective HD #3 passing some flatus feels better pain better Review of Systems Constitutional: no fever, no chills and no sweats Respiratory: no cough and no dyspnea Cardiovascular: no chest pain Gastrointestinal: + abdominal pain and + bloating; no nausea and no vomiting ngt still draining dark bilious fluid Genitourinary: no dysuria Physical Exam 2 Constitutional: no acute distress Neck: trachea midline Respiratory: normal respiratory effort, lungs clear to auscultation Cardiovascular: RRR, no murmur, no edema Gastrointestinal (Abdomen): Inspection/Auscultation: abdomen normal to inspection, + abdomen distended and normal bowel sounds Percussion/Palpation: + abdomen tender Musculoskeletal: Head/Neck/Chest: normocephalic and head atraumatic Skin: no rashes, warm and dry Results & Data Vital Signs (Past 12 Hours) Vital Signs Temp Pulse Resp BP Pulse Ox 12/14/19 07:13 36.8 C 82 16 161/76 H 96 12/13/19 23:19 37.0 C 79 16 171/81 H 97 Diagnostic Findings XR KUB/Abdomen 1 view CLINICAL HISTORY: 69 years-old Female presenting with sbo. TECHNIQUE: Single supine view of the abdomen was obtained. COMPARISON: 12/13/[address] from 12/22/2019. FINDINGS: Nasogastric tube terminates in the gastric body with side hole at the level of the gastroesophageal junction or just within the gastric lumen. Persistent gaseous distention of small bowel which may be slightly improved. Maximal small bowel diameter measures 3.9 cm, previously 4.9 cm. Scattered surgical clips in the pelvis. Suture margins noted in the right lower quadrant and pelvis. No gross pneumoperitoneum or pneumatosis allowing for supine technique. Allowing for bowel gas and stool, no calcifications to suggest nephrolithiasis. Mild levoscoliotic curvature of the lumbar spine. Left lung base clear. IMPRESSION: 1. Stable to slightly improved gaseous distention of small bowel due to the underlying small bowel obstruction. 2. Nasogastric tube remains in place with sidehole at the level of the GE junction or just within the gastric lumen.
--- NOTE | 2019-12-14 11:25 | Hospitalist Progress Note ---
Date of Service December 14, 2019 Assessment & Plan (1) SBO (small bowel obstruction): * CT a/p on admission showed partial SBO with transition point in the distal jejunum. Likely due to prior procedures; no recurrent cancer seen. * KUB 5/ with stable to slightly improved distention * General surgery on consult -- appreciate recommendations. no current need for surgery * Continue conservative treatment * NGT * NPO * Continue to monitor (2) ELOISE (acute kidney injury): * resolved. 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 Rare diagnosis with features of adenocarcinoma and carcinoid tumor. Treated with chemotherapy by Dr. Helton and cystoreduction and HIPEC at [facility]. No evidence of recurrence either on CT c/a/p during last oncology visits or on CT a/p this admission where SBO was diagnosed. * Outpatient follow up will be needed (4) HTN (hypertension): * History of this, but no longer on meds after her weight loss and dealing with her cancer. * BP elevated at 159/86, however in the setting of stress/pain * Continue to monitor --> prn hydralazine or if symptomatic. Asymptomatically currently (5) Anxiety associated with depression: * No overt anxiety or depression symptoms on interview today. * Continue to hold sertraline while NPO * Ativan PRN for anxiety (6) Hypokalemia: * K 2.7 on 12/12 * IVF changed to NS + 40meq KCl @ 125ml/hr * K still slightly low, but improved to 3.4 * Continue to monitor as patient still NPO (7) DVT prophylaxis: * High risk with cancer (though not active) and age * Heparin 5000 units SQ Q12h -> Hold if surgery becomes more likely Dispo: NGT until bowel function returns. Possible d/c Monday vs Monday when resolved Admission and Anticipated Discharge Date Admission Date: December 12, 2019 Supervising Physician Co-Signing Physician Notes Attending Attestation: Chart reviewed, care plan d/w SONA Johns. I agree w/ the nicolas components of her documentation. Ongoing NG tube use for SBO. Some flatus and x-rays improved. Hopefully can d/c NG tube tomorrow and start sips. Hypokalemia improved. Martell Moreno MD Subjective Patient feeling slightly better. Has been passing lots of gas, much more than yesterday. She states some chills, but no more than her usual amount of "chills". Some abdominal pain, but controlled with medication. Significant abdominal surgeries for hx of appendiceal CA with ovarian and cervical CA and underwent HIPET procedure at [facility] and had chemo this past April through July and had a scan 3 weeks ago that was negative for metastatic disease. States she has been up and around her room, but not very much as limited by her NGT. Discussed plan to continue with conservative treatment and patient agreeable at this time. Denies any recent shortness of breath, cough, or fever, chest pain or dysuria. All questions/concerns addressed. Review of Systems Review of Systems: All systems reviewed & are unremarkable except as noted in HPI & below Physical Exam Constitutional: WD/WN, vitals as above + frail appearing; no acute distress Eyes: + anicteric sclerae and PERRL Neck: trachea midline, no thyromegaly Respiratory: normal respiratory effort, lungs clear to auscultation Cardiovascular: Rate/Rhythm: regular rate and regular rhythm Heart Sounds: no murmur and no cardiac rub Extremities: no edema Gastrointestinal (Abdomen): Inspection/Auscultation: + abdomen distended and normal bowel sounds Percussion/Palpation: + abdomen tender; no guarding NGT with dark bilious drainage Musculoskeletal: no cyanosis or clubbing, extremities motor strength 5/5 Skin: no rashes, warm and dry Psychiatric: A+Ox3, euthymic affect Lymphatic: no cervical or axillary lymphadenopathy Results & Data Results & Data ([facility]) Vital Signs (Past 12 Hours) Vital Signs Temp Pulse Resp BP Pulse Ox 12/14/19 07:13 36.8 C 82 16 161/76 H 96 Laboratory Results 12/14/19 12/13/19 Range/Units 05:16 18:28 Sodium 137 138 (136-145) mmol/L Potassium 3.4 L D 2.7 L (3.5-5.1) mmol/L Chloride 101 103 (98-107) mmol/L Carbon Dioxide 31 28 (21-32) mmol/L Anion Gap 5.0 7.0 (3-11) BUN 8 11 (7-18) mg/dl Creatinine 0.46 L 0.47 L (0.6-1.2) mg/dl Est Cr Clr Drug Dosing 80.2 78.5 ml/min Est GFR ( Amer) 117.6 116.8 Est GFR (Non-Af Amer) 101.5 100.8 BUN/Creatinine Ratio 18.3 23.5 H (10-20) Glucose 99 127 H (70-99) mg/dl Calcium 8.8 8.8 (8.5-10.1) mg/dl Diagnostic Findings KUB IMPRESSION: 1. Stable to slightly improved gaseous distention of small bowel due to the underlying small bowel obstruction. 2. Nasogastric tube remains in place with sidehole at the level of the GE junction or just within the gastric lumen. PG Care Time/CCT Total # of Minutes Spent Total Time Spent with Patient: Total time spent is greater than 50% in coordination of care (as documented) at patient's floor/unit and/or counseling patient: Coding Level of Care Code 75184 Subseq Hosp Care Lvl 2 Diagnoses SBO (small bowel obstruction) K56.609 ELOISE (acute kidney injury) N17.9 Adenocarcinoma C80.1 HTN (hypertension) I10 Hypertension type: essential hypertension Anxiety associated with depression F41.8 Hypokalemia E87.6 DVT prophylaxis Z29.9 (1) HTN (hypertension) Hypertension type: essential hypertension Qualified Code(s): I10 - Essential (primary) hypertension
[2019-12-14] MEDS: LORazepam 0.25 MG/0.5 ML VIAL IV PRN (22:16)
[2019-12-15 06:01] LABS: Hematocrit (blood only) 38.5 % (37-47); Mean Corpuscular Hemoglobin 31.6 pg (25-34); Mean Corpuscular Hgb Conc 33.8 g/dL (32-36); Mean Corpuscular Volume 93.4 fL (80-100); Platelet Count 274 K/uL (130-400); RDW Coefficient of Variation 13.2 % (11.5-14.5); RDW Standard Deviation 45.1 fL (36.4-46.3); Red Blood Count 4.12 M/uL (4.2-5.4)
[2019-12-15 06:40] LABS: Albumin Level 3.3 gm/dl (3.4-5.0); BUN Creatinine Ratio 26.9 (10-20); Bilirubin,Total 0.8 mg/dl (0.2-1); Calcium 8.8 mg/dl (8.5-10.1); Creatinine Clr Calc Pharmacy 78.5 ml/min; Est GFR (African American) 116.8; Est GFR (Non-African American) 100.8; Globulin 3.3 gm/dl (2.5-4.0); Magnesium 1.8 mg/dl (1.8-2.4); Total Protein 6.6 gm/dl (6.4-8.2)
[2019-12-15] MEDS: POTASSIUM CHLORIDE 40 MEQ in SODIUM CHLORIDE 0.45 % 1,000 ML IV SCH ×3 (08:04→22:40)
[2019-12-15] MEDS: HEPARIN SOD 5,000 UNIT/0.5 ML VIAL SQ SCH ×2 (08:12→21:52)
--- NOTE | 2019-12-15 08:31 | Hospitalist Progress Note ---
Date of Service December 15, 2019 Assessment & Plan (1) SBO (small bowel obstruction): * CT a/p on admission showed partial SBO with transition point in the distal jejunum. Likely due to prior procedures; no recurrent cancer seen. * KUB 12/13 with stable to slightly improved distention * General surgery on consult -- appreciate recommendations. no current need for surgery * Continue conservative treatment * NGT removed-- will trial without per gen surg * NPO except sips/chips * Encourage ambulation * Avoid narcotic pain medications * Repeat KUB with increase in small bowel dilation, suggesting progressive SBO. Will notify gen surg to see about re-insertion of NGT * IVF- NS + 40MEQ KCl @ 125mL/hr for maintenance * Continue to monitor (2) ELOISE (acute kidney injury): * resolved. 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 Rare diagnosis with features of adenocarcinoma and carcinoid tumor. Treated with chemotherapy by Dr. Helton and cystoreduction and HIPEC at [place]. No evidence of recurrence either on CT c/a/p during last oncology visits or on CT a/p this admission where SBO was diagnosed. * Outpatient follow up will be needed (4) HTN (hypertension): * History of this, but no longer on meds after her weight loss and dealing with her cancer. * BP stable at 138/77 * Continue to monitor --> prn hydralazine or if symptomatic. Asymptomatically currently (5) Anxiety associated with depression: * No overt anxiety or depression symptoms on interview today. * Continue to hold sertraline while NPO * Ativan PRN for anxiety (6) Hypokalemia: * K 2.7 on 12/12 * IVF changed to NS + 40meq KCl @ 125ml/hr * K stable at 4.0 * Monitor morning labs as patient still NPO (7) DVT prophylaxis: * High risk with cancer (though not active) and age * Heparin 5000 units SQ Q12h -> Hold if surgery becomes more likely Dispo:likely to remain inpatient until monday or monday pending resolution of obstruction Admission and Anticipated Discharge Date Admission Date: December 12, 2019 Supervising Physician Co-Signing Physician Notes Attending Attestation: Chart reviewed, care plan d/w SONA Johns. I agree w/ the nicolas components of her documentation. NG tube accidentally came out today. Unfortunately repeat x-rays showed small bowel dilatation was worse after NG tube dislodged. Thus, NG tube placed back. Gen surg continues to follow. Cont IVF with repeat labs am. Martell Moreno MD Subjective Patient states she accidently removed NGT while getting washed up and dressed this morning. Discussed with gen surgeon who would like to trial without NGT for today and encourage ambulation. Patient agreeable to go for xray to see status of obstruction. Denies much pain but states she believes she has been passing less gas than yesterday despite trying to get up several times to get things moving. Denies n/v currently. Denies fevers, chills, chest pain, shortness of breath, edema, dizziness, headache or any other concerns at this time. All questions/concerns addressed. Review of Systems Review of Systems: All systems reviewed & are unremarkable except as noted in HPI & below Physical Exam Constitutional: WD/WN, vitals as above + frail appearing; no acute distress Eyes: + anicteric sclerae and PERRL ENMT: Ears: no hearing impairment Nose: no external nose abnormality Neck: trachea midline, no thyromegaly Respiratory: normal respiratory effort, lungs clear to auscultation Cardiovascular: Rate/Rhythm: regular rate and regular rhythm Heart Sounds: no murmur and no cardiac rub Extremities: no edema Gastrointestinal (Abdomen): Inspection/Auscultation: + abdomen distended and + hypoactive bowel sounds Percussion/Palpation: + abdomen tender; no guarding Musculoskeletal: no cyanosis or clubbing, extremities motor strength 5/5 Skin: no rashes, warm and dry Neurologic: PERRL, EOMI, accommodation nl, no face palsy, no dysarthria Psychiatric: A+Ox3, euthymic affect Lymphatic: no cervical or axillary lymphadenopathy Results & Data Results & Data ([facility]) Vital Signs (Past 12 Hours) Vital Signs Temp Pulse Resp BP Pulse Ox 12/15/19 07:29 36.7 C 86 18 138/77 94 12/14/19 23:28 36.7 C 85 16 134/80 94 Laboratory Results 12/15/19 12/15/19 Range/Units 05:17 05:17 WBC 8.50 (4.8-10.8) K/uL RBC 4.12 L (4.2-5.4) M/uL Hgb 13.0 (12.0-16.0) g/dL Hct 38.5 (37-47) % MCV 93.4 (80-100) fL MCH 31.6 (25-34) pg MCHC 33.8 (32-36) g/dL RDW Std Deviation 45.1 (36.4-46.3) fL RDW Coeff of Taniya 13.2 (11.5-14.5) % Plt Count 274 (130-400) K/uL MPV 9.0 (7.4-10.4) fL Sodium 135 L (136-145) mmol/L Potassium 4.0 D (3.5-5.1) mmol/L Chloride 98 (98-107) mmol/L Carbon Dioxide 29 (21-32) mmol/L Anion Gap 8.0 (3-11) BUN 13 D (7-18) mg/dl Creatinine 0.47 L (0.6-1.2) mg/dl Est Cr Clr Drug Dosing 78.5 ml/min Est GFR ( Amer) 116.8 Est GFR (Non-Af Amer) 100.8 BUN/Creatinine Ratio 26.9 H (10-20) Glucose 76 (70-99) mg/dl Calcium 8.8 (8.5-10.1) mg/dl Magnesium 1.8 (1.8-2.4) mg/dl Total Bilirubin 0.8 (0.2-1) mg/dl AST 23 (15-37) U/L ALT 29 (12-78) U/L Alkaline Phosphatase 101 (45-117) U/L Total Protein 6.6 (6.4-8.2) gm/dl Albumin 3.3 L (3.4-5.0) gm/dl Globulin 3.3 (2.5-4.0) gm/dl Albumin/Globulin Ratio 1.0 (0.9-2) PG Care Time/CCT Total # of Minutes Spent Total Time Spent with Patient: Total time spent is greater than 50% in coordination of care (as documented) at patient's floor/unit and/or counseling patient: Coding Level of Care Code 85751 Subseq Hosp Care Lvl 2 Diagnoses SBO (small bowel obstruction) K56.609 ELOISE (acute kidney injury) N17.9 Adenocarcinoma C80.1 HTN (hypertension) I10 Hypertension type: essential hypertension Anxiety associated with depression F41.8 Hypokalemia E87.6 DVT prophylaxis Z29.9 (1) HTN (hypertension) Hypertension type: essential hypertension Qualified Code(s): I10 - Essential (primary) hypertension
--- NOTE | 2019-12-15 09:41 | Surgery Progress Note ---
Date of Service December 15, 2019 Assessment & Plan (1) SBO (small bowel obstruction): ng out will trial without ng sips/chips only ambulate avoid narcotics Subjective HD #4 ng accidentally removed will keep out passing flatus no nausea/vomiting feels good Review of Systems Constitutional: no fever and no chills Respiratory: no cough and no dyspnea Cardiovascular: no chest pain Gastrointestinal: no abdominal pain, no nausea and no vomiting Genitourinary: no dysuria Musculoskeletal: no back pain Neurologic: no localized weakness and no generalized weakness Physical Exam Constitutional: not ill appearing Neck: trachea midline Respiratory: normal respiratory effort, lungs clear to auscultation Cardiovascular: RRR, no murmur, no edema Gastrointestinal (Abdomen): Inspection/Auscultation: normal bowel sounds; abdomen not distended Percussion/Palpation: abdomen soft; abdomen nontender Musculoskeletal: Head/Neck/Chest: normocephalic and head atraumatic Skin: no rashes, warm and dry Psychiatric: Affect: no depressed affect Results & Data Vital Signs (Past 12 Hours) Vital Signs Temp Pulse Resp BP Pulse Ox 12/15/19 07:29 36.7 C 86 18 138/77 94 12/14/19 23:28 36.7 C 85 16 134/80 94
--- NOTE | 2019-12-15 10:11 | XRay Report ---
KUB CLINICAL HISTORY: Bowel obstruction. COMPARISON STUDY: KUB December 14, 2019. FINDINGS: The nasogastric tube has been removed. Moderate dilatation of multiple small bowel loops beltre s mildly increased since exam of December 14, 2019. Small bowel loops measure up to 4.4 cm in caliber. A ri ght lower quadrant surgical staple line is present. Although sensitivity is diminished on this supine exam, there is no evidence for free air. IMPRESSION: Increase in small bowel dilatation. This suggests a progressive small bowel obstruction. ACT 112: Negative or not required by law. Electronically signed by: Milton Lizarraga M.D. 12/15/2019 10:09 AM
[2019-12-15] MEDS: LORazepam 0.25 MG/0.5 ML VIAL IV PRN ×2 (13:44→21:53)
--- NOTE | 2019-12-15 19:14 | XRay Report ---
XR chest 1V portable CLINICAL HISTORY: Nasogastric tube insertion. COMPARISON STUDY: Chest radiograph December 12, 2019. KUB performed earlier today. FINDINGS: Left subclavian [id number] is in place. Tip of nasogastric tube is within the body of th e stomach. Cardiac size is normal. There is no pneumothorax or pleural effusion. A dilated small madelyn l loop is partially imaged on this exam. IMPRESSION: Tip of nasogastric tube within the body of the stomach. ACT 112: Negative or not required by law. Electronically signed by: Milton Lizarraga M.D. 12/15/2019 7:12 PM
[2019-12-16] MEDS: POTASSIUM CHLORIDE 40 MEQ in SODIUM CHLORIDE 0.45 % 1,000 ML IV SCH ×2 (05:11→12:00)
[2019-12-16] MEDS: LORazepam 0.25 MG/0.5 ML VIAL IV PRN ×3 (05:59→20:39)
[2019-12-16 06:01] LABS: Hematocrit (blood only) 38.8 % (37-47); Mean Corpuscular Hemoglobin 30.7 pg (25-34); Mean Corpuscular Hgb Conc 33.5 g/dL (32-36); Mean Corpuscular Volume 91.7 fL (80-100); Platelet Count 262 K/uL (130-400); RDW Coefficient of Variation 13.2 % (11.5-14.5); RDW Standard Deviation 44.1 fL (36.4-46.3); Red Blood Count 4.23 M/uL (4.2-5.4); White Blood Count 9.45 K/uL (4.8-10.8)
[2019-12-16 06:34] LABS: BUN Creatinine Ratio 27.4 (10-20); Creatinine Clr Calc Pharmacy 83.8 ml/min; Est GFR (African American) 119.4; Potassium 4.3 mmol/L (3.5-5.1)
[2019-12-16] MEDS: HEPARIN SOD 5,000 UNIT/0.5 ML VIAL SQ SCH ×2 (09:11→20:37)
--- NOTE | 2019-12-16 10:09 | Surgery Progress Note ---
Date of Service December 16, 2019 Assessment & Plan (1) SBO (small bowel obstruction): failing conservative tx/appears she will likely need surgical correction. since she is non-distended and had a bm yesterday, will obtain a SBFT today.... unless she opens up, will plan OR tomorrow. discussed options and risks ( bleeding/infection/dvt/pe/mi/cva/injury to another organ/structure such as bowel etc...) questions answered. Plan ex-lap with release of sbo/surgery as needed for tomorrow pending SBFT outcome. Subjective pt doing ok currently but was unable yesterday to tolerate her NGT being out. +bm yesterday afternoon. no nausea. Physical Exam Physical Exam: alert. nad abd: soft. nt/nd. NG with approx 750 cc's out since 11 last night per nurse ( canister empty now) Results & Data Vital Signs (Past 12 Hours) Vital Signs Temp Pulse Resp BP Pulse Ox 12/16/19 07:30 36.6 C 18 148/80 H 96 12/15/19 23:31 36.8 C 92 H 16 145/78 H 96 PG Care Time/CCT Total # of Minutes Spent Total Time Spent with Patient: Total time spent is greater than 50% in coordination of care (as documented) at patient's floor/unit and/or counseling patient: Coding Level of Care Code 03696 Subseq Hosp Care Lvl 3 Diagnoses SBO (small bowel obstruction) K56.609
--- NOTE | 2019-12-16 11:49 | Fluoroscopy Report ---
SINGLE CONTRAST SMALL BOWEL FOLLOW-THROUGH CLINICAL HISTORY: Small bowel obstruction. History of ileocecal resection. COMPARISON STUDY: Abdominal CT dated 12/12/2019. TECHNIQUE: An abdominal air purifier servicer radiograph was performed. The patient consumed approximately 300 cc of Optiray 300 and a small follow-through was performed. Overhead radiographs and spot compression image s were obtained. FINDINGS: The abdominal air purifier servicer radiograph shows suture material projecting over the right lower quadrant. An ent emre tube projects over the stomach. There is gaseous distention of the small bowel loops. No evidenc e of intraperitoneal free air is seen. There are no abnormal abdominal calcifications. Surgical clips and phleboliths are noted in the pelvis. The bony structures appear intact. On the small bowel follow-through, there is normal transit time with contrast identified in the colon at 20 minutes. The small bowel mucosal pattern is normal. There is mild distention of the proximal s mall bowel loops. There is questionable caliber change involving the loop of jejunum in the mid pelvi s. This is best seen on the first static image. The distal small bowel loops are normal in caliber. T here is no evidence of stricture or mass. The small bowel are normal in appearance on the spot compre ssion views. Fluoroscopy time: 0.2 minutes Fluoroscopic images: 6 IMPRESSION: 1. Postoperative change is noted in the right lower quadrant consistent with ileocecal resection. 2. There is mild distention of the proximal small bowel loops which likely represent low-grade/incomp lete obstruction. There is normal transit time with enteric contrast reaching the colon by 20 minutes . 3. Question focal caliber change of the small bowel in the mid pelvis. This likely corresponds to the transition point seen on the 12/12/2019 CT scan. ACT 112: Negative or not required by law. Follow-through Electronically signed by: Emre Chang M.D. 12/16/2019 11:47 AM
--- NOTE | 2019-12-16 17:16 | Surgery Progress Note ---
Date of Service December 16, 2019 Assessment & Plan (1) SBO (small bowel obstruction): sbft showed contrast into colon without delay. will pull ngt and try clears. npo after midnight just in case she regresses. Subjective pt doing well. +multiple bm's today after sbft. no nausea. nothing out of ngt today. Physical Exam Physical Exam: alert/nad abd: soft. non-distended. Results & Data Vital Signs (Past 12 Hours) Vital Signs Temp Pulse Resp BP Pulse Ox 12/16/19 15:52 36.8 C 90 16 142/76 H 95 12/16/19 07:30 36.6 C 18 148/80 H 96 PG Care Time/CCT Total # of Minutes Spent Total Time Spent with Patient: Total time spent is greater than 50% in coordination of care (as documented) at patient's floor/unit and/or counseling patient: Coding Level of Care Code None Diagnoses SBO (small bowel obstruction) K56.609
--- NOTE | 2019-12-16 17:43 | Hospitalist Progress Note ---
Date of Service December 16, 2019 Assessment & Plan (1) SBO (small bowel obstruction): * CT a/p on admission showed partial SBO with transition point in the distal jejunum. Likely due to prior procedures; no recurrent cancer seen. * KUB 12/13 with stable to slightly improved distention * SBFT on 12/15 with contrast into the colon in 20 minutes, essentially no delay, suggests a partial obstruction * General surgery on consult -- Dr. Gonzalez recommends pulling NGT, make NPO after midnight, allow clears * Encourage ambulation * Avoid narcotic pain medications * stop IV fluids, fully hydrated at this point (2) ELOISE (acute kidney injury): * resolved. 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 Rare diagnosis with features of adenocarcinoma and carcinoid tumor. Treated with chemotherapy by Dr. Helton and cystoreduction and HIPEC at [place]. No evidence of recurrence either on CT c/a/p during last oncology visits or on CT a/p this admission where SBO was diagnosed. * Outpatient follow up will be needed (4) HTN (hypertension): * History of this, but no longer on meds after her weight loss and dealing with her cancer. * BP stable at 138/77 * Continue to monitor --> prn hydralazine or if symptomatic. Asymptomatically currently (5) Anxiety associated with depression: * No overt anxiety or depression symptoms on interview today. * Continue to hold sertraline while NPO * Ativan PRN for anxiety (6) Hypokalemia: * K 2.7 on 12/12 * IVF changed to NS + 40meq KCl @ 125ml/hr * K stable at 4.3 * stop IV replacement today as K trending up (7) DVT prophylaxis: * High risk with cancer (though not active) and age * Heparin 5000 units SQ Q12h -> Hold if surgery becomes more likely Dispo:likely to remain inpatient until monday or monday pending resolution of obstruction Admission and Anticipated Discharge Date Admission Date: December 12, 2019 Subjective patient had NGT placed again last night after she developed nausea and vomiting NGT draining bile this morning had SBFT with contrast via NGT today, contrast into the colon in 20 minutes, no delay discussed with Dr. Gonzalez, will pull NGT, try clears, make NPO after midnight in case she regresses reviewed chart reviewed labs, CBC and BMP normal patient denies dyspnea, cough, chest pain, fever/chills, sweats, dysuria Review of Systems Review of Systems: All systems reviewed & are unremarkable except as noted in HPI & below Gastrointestinal: + nausea, + vomiting and + diarrhea/loose stools; no abdominal pain and no constipation Physical Exam Constitutional: WD/WN, vitals as above + frail appearing Eyes: PERRL, conjunctivae normal, anicteric sclerae ENMT: external ear and nose normal, oropharynx normal Neck: trachea midline, no thyromegaly Respiratory: normal respiratory effort, lungs clear to auscultation Cardiovascular: RRR, no murmur, no edema Gastrointestinal (Abdomen): Inspection/Auscultation: abdomen normal to inspection and normal bowel sounds; abdomen not distended Percussion/Palpation: abdomen soft; abdomen nontender, no guarding and abdomen not rigid Musculoskeletal: no cyanosis or clubbing, extremities motor strength 5/5 Skin: no rashes, warm and dry Neurologic: patellar DTR's 2+ bilat, sensation intact and PERRL, EOMI, accommodation nl, no face palsy, no dysarthria Psychiatric: A+Ox3, euthymic affect Lymphatic: no cervical or axillary lymphadenopathy Results & Data Results & Data ([facility]) Vital Signs (Past 12 Hours) Vital Signs Temp Pulse Resp BP Pulse Ox 12/16/19 15:52 36.8 C 90 16 142/76 H 95 12/16/19 07:30 36.6 C 18 148/80 H 96 Laboratory Results Laboratory Results - last 24 hr 12/16/19 12/16/19 12/16/19 05:29 05:29 15:19 WBC 9.45 RBC 4.23 Hgb 13.0 Hct 38.8 MCV 91.7 MCH 30.7 MCHC 33.5 RDW Std Deviation 44.1 RDW Coeff of Taniya 13.2 Plt Count 262 MPV 9.0 Sodium 134 L Potassium 4.3 Chloride 97 L Carbon Dioxide 23 Anion Gap 13.0 H BUN 12 Creatinine 0.44 L Est Cr Clr Drug Dosing 83.8 Est GFR ( Amer) 119.4 Est GFR (Non-Af Amer) 103.0 BUN/Creatinine Ratio 27.4 H Glucose 65 L Calcium 9.0 Blood Type A Positive Antibody Screen NEGATIVE Diagnostic Findings Small bowel follow through IMPRESSION: 1. Postoperative change is noted in the right lower quadrant consistent with ileocecal resection. 2. There is mild distention of the proximal small bowel loops which likely represent low-grade/incomplete obstruction. There is normal transit time with enteric contrast reaching the colon by 20 minutes. 3. Question focal caliber change of the small bowel in the mid pelvis. This likely corresponds to the transition point seen on the 12/12/2019 CT scan. PG Care Time/CCT Total # of Minutes Spent Total Time Spent with Patient: Total time spent is greater than 50% in coord ination of care (as documented) at patient's floor/unit and/or counseling patient: Coding Level of Care Code 04310 Subseq Hosp Care Lvl 2 Diagnoses SBO (small bowel obstruction) K56.609 ELOISE (acute kidney injury) N17.9 Adenocarcinoma C80.1 HTN (hypertension) I10 Hypertension type: essential hypertension Anxiety associated with depression F41.8 Hypokalemia E87.6 DVT prophylaxis Z29.9 (1) HTN (hypertension) Hypertension type: essential hypertension Qualified Code(s): I10 - Essential (primary) hypertension
[2019-12-17 06:24] LABS: BUN Creatinine Ratio 24.8 (10-20); Creatinine Clr Calc Pharmacy 87.8 ml/min; Est GFR (African American) 121.2; Est GFR (Non-African American) 104.6; Potassium 3.6 mmol/L (3.5-5.1)
[2019-12-17] MEDS: HEPARIN SOD 5,000 UNIT/0.5 ML VIAL SQ SCH ×2 (08:35→21:08)
[2019-12-17] MEDS: LORazepam 0.25 MG/0.5 ML VIAL IV PRN ×2 (09:42→21:09)
--- NOTE | 2019-12-17 10:24 | Surgery Progress Note ---
Date of Service December 17, 2019 Assessment & Plan (1) SBO (small bowel obstruction): improving consider full liquids later today as above. doing well. no pain or nausea will try full liquids today and if she does well low residue tomorrow. Subjective multiple BMs, tolerating clears Physical Exam Gastrointestinal (Abdomen): Inspection/Auscultation: abdomen not distended Percussion/Palpation: abdomen soft; abdomen nontender Results & Data Vital Signs (Past 12 Hours) Vital Signs Temp Pulse Resp BP Pulse Ox 12/17/19 07:18 36.7 C 80 18 134/77 97 12/16/19 22:56 36.6 C 89 16 153/87 H 96 PG Care Time/CCT Total # of Minutes Spent Total Time Spent with Patient: Total time spent is greater than 50% in coordin ation of care (as documented) at patient's floor/unit and/or counseling patient: Coding Level of Care Code 24671 Subseq Hosp Care Lvl 1 Diagnoses SBO (small bowel obstruction) K56.609
--- NOTE | 2019-12-17 10:40 | Hospitalist Progress Note ---
Date of Service December 17, 2019 Assessment & Plan (1) SBO (small bowel obstruction): * CT a/p on admission showed partial SBO with transition point in the distal jejunum. Likely due to prior procedures; no recurrent cancer seen. * KUB 12/13 with stable to slightly improved distention * SBFT on 12/15 with contrast into the colon in 20 minutes, essentially no delay, suggests a partial obstruction * General surgery on consult -- Dr. Carlos BASILIO pulled on 12/15 she is tolerating clear liquids last night and this morning hold on any plans for surgery for now * Encourage ambulation * Avoid narcotic pain medications * stop IV fluids on 12/15 (2) ELOISE (acute kidney injury): * resolved. 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 Rare diagnosis with features of adenocarcinoma and carcinoid tumor. Treated with chemotherapy by Dr. Helton and cystoreduction and HIPEC at [place]. No evidence of recurrence either on CT c/a/p during last oncology visits or on CT a/p this admission where SBO was diagnosed. * Outpatient follow up will be needed (4) HTN (hypertension): * History of this, but no longer on meds after her weight loss and dealing with her cancer. * BP stable * Continue to monitor --> prn hydralazine or if symptomatic. Asymptomatically currently (5) Anxiety associated with depression: * No overt anxiety or depression symptoms on interview today. * Continue to hold sertraline while NPO * Ativan PRN for anxiety (6) Hypokalemia: * K 2.7 on 12/12 * IVF changed to NS + 40meq KCl @ 125ml/hr * K stable at 3.6 * repeat tomorrow (7) DVT prophylaxis: * High risk with cancer (though not active) and age * Heparin 5000 units SQ Q12h -> Hold if surgery becomes more likely Dispo:keep inpatient until bowels open up (8) Protein-calorie malnutrition, moderate: moderate to severe, advance diet as tolerated Admission and Anticipated Discharge Date Admission Date: December 12, 2019 Subjective patient tolerating clear liquids last night and this morning no nausea or vomiting, she is passing flatus, no BM no plans for surgery for now, will monitor closely vitals stable BMP shows normal renal function and electrolytes Review of Systems Review of Systems: All systems reviewed & are unremarkable except as noted in HPI & below Physical Exam Constitutional: WD/WN, vitals as above + frail appearing Eyes: PERRL, conjunctivae normal, anicteric sclerae ENMT: external ear and nose normal, oropharynx normal Neck: trachea midline, no thyromegaly Respiratory: normal respiratory effort, lungs clear to auscultation Cardiovascular: RRR, no murmur, no edema Gastrointestinal (Abdomen): Inspection/Auscultation: abdomen normal to inspection and normal bowel sounds; abdomen not distended Percussion/Palpation: abdomen soft; abdomen nontender, no guarding and abdomen not rigid Musculoskeletal: no cyanosis or clubbing, extremities motor strength 5/5 Skin: no rashes, warm and dry Neurologic: patellar DTR's 2+ bilat, sensation intact and PERRL, EOMI, accommodation nl, no face palsy, no dysarthria Psychiatric: A+Ox3, euthymic affect Lymphatic: no cervical or axillary lymphadenopathy Results & Data Results & Data ([facility]) Vital Signs (Past 12 Hours) Vital Signs Temp Pulse Resp BP Pulse Ox 12/17/19 07:18 36.7 C 80 18 134/77 97 12/16/19 22:56 36.6 C 89 16 153/87 H 96 Laboratory Results Laboratory Results - last 24 hr 12/16/19 12/17/19 15:19 05:23 Sodium 136 Potassium 3.6 D Chloride 102 Carbon Dioxide 23 Anion Gap 11.0 BUN 11 Creatinine 0.42 L Est Cr Clr Drug Dosing 87.8 Est GFR ( Amer) 121.2 Est GFR (Non-Af Amer) 104.6 BUN/Creatinine Ratio 24.8 H Glucose 84 Calcium 9.0 Blood Type A Positive Antibody Screen NEGATIVE Medications Administered Current Inpatient Medications Heparin Sodium (Porcine) (Heparin Sodium (Porcine)) 5,000 units SQ Q12 BAKARI Stop: 01/11/20 20:59 Last Admin: 12/17/19 08:35 Dose: 5,000 units Documented by: Lorazepam (Ativan) 0.25 mg in 0.5 mls @ 0.5 mls/min IV Q6H PRN PRN Reason: Anxiety/Insomnia Stop: 01/11/20 16:32 Last Admin: 12/17/19 09:42 Dose: 0.5 mls/min Documented by: Morphine Sulfate (Morphine Sulfate) 2 mg IV Q4H PRN PRN Reason: Pain Stop: 12/26/19 16:32 Last Admin: 12/14/19 10:48 Dose: 2 mg Documented by: Ondansetron HCl (Zofran) 4 mg IV Q4H PRN PRN Reason: Nausea Stop: 01/11/20 16:32 PG Care Time/CCT Total # of Minutes Spent Total Time Spent with Patient: Total time spent is greater than 50% in coordination of care (as documented) at patient's floor/unit and/or counseling patient: Coding Level of Care Code 59576 Subseq Hosp Care Lvl 2 Diagnoses SBO (small bowel obstruction) K56.609 ELOISE (acute kidney injury) N17.9 Adenocarcinoma C80.1 HTN (hypertension) I10 Hypertension type: essential hypertension Anxiety associated with depression F41.8 Hypokalemia E87.6 DVT prophylaxis Z29.9 Protein-calorie malnutrition, moderate E44.0 (1) HTN (hypertension) Hypertension type: essential hypertension Qualified Code(s): I10 - Essential (primary) hypertension
[2019-12-18 06:28] LABS: BUN Creatinine Ratio 16.6 (10-20); Calcium 9.1 mg/dl (8.5-10.1); Creatinine Clr Calc Pharmacy 56.7 ml/min; Est GFR (Non-African American) 90.6; Potassium 3.6 mmol/L (3.5-5.1)
[2019-12-18] MEDS: HEPARIN SOD 5,000 UNIT/0.5 ML VIAL SQ SCH (08:26)
--- NOTE | 2019-12-18 08:32 | Surgery Progress Note ---
Date of Service December 18, 2019 Assessment & Plan (1) SBO (small bowel obstruction): Patient clinically looking and feeling better Tolerating liquids and having bowel function Abdominal exam benign Will advance to low fiber diet today Possible discharge later today pending medicine clearance as above. doing well. no pain. no n/v. will advance diet. will d/w primary team, ok for d/c later today if tolerates diet. Subjective Patient said she had an excellent night of sleep. She is denying abdominal pain, nausea, or vomiting. She is tolerating liquids. Passing some flatus and having some loose BMs. Physical Exam Physical Exam: awake/alert Gastrointestinal (Abdomen): Inspection/Auscultation: abdomen not distended Percussion/Palpation: abdomen soft; abdomen nontender Results & Data Vital Signs (Past 12 Hours) Vital Signs Temp Pulse Resp BP Pulse Ox 12/18/19 07:18 36.6 C 74 16 124/76 97 12/17/19 23:03 36.9 C 87 16 132/77 97 PG Care Time/CCT Total # of Minutes Spent Total Time Spent with Patient: Total time spent is greater than 50% in coordination of care (as documented) at patient's floor/unit and/or counseling patient: Coding Level of Care Code 66071 Subseq Hosp Care Lvl 2 Diagnoses SBO (small bowel obstruction) K56.609
--- NOTE | 2019-12-18 15:12 | Discharge Summary ---
Date of Service December 18, 2019 Admission HPI Per Admitting Provider [id number] F w/ hx of appendiceal adenocarcinoma s/p ileocecectomy who presents with recurrent SBO. The patient was diagnosed with ADENOCARCINOMA EX GOBLET CELL CARCINOID OF THE APPENDIX in 03/2019 after having an SBO that was treated conservatively in 12/2018. She underwent chemotherapy with Dr. Helton and in 09/2019 had cystoreduction and HIPEC (intra-operative chemotherapy) at [facility] under Dr. Edith Mcfarland. She had a tough time with chemotherapy, having loss of appetite, loss of weight, and neuropathy, but had seemed to be getting better and was regaining weight. Her last check-ups with oncology and [facility] surgery were both in 11/2019 and there is no indication of recurrent cancer. Yesterday evening, she began to have nausea and dry heaving. She reports that she had some cramping suprapubic & LLQ abdominal pain that had some mild radiation to the left flank as well. She rates the pain as a 2-3 out of 10 as she reports a high pain threshold. Around 7am, she had an episode of bilious vomiting that caused enough concern for presentation to the ED. She notes that she usually has 1 formed BM in the morning and then several looser stools (2-3) throughout the day since her second surgery. Her last BM was yesterday ~2pm and was normal in consistency and color for her. No hematochezia and no melena noted. She notes she is still passing gas, though less than normal for her. She denies any fever, chills, or sweats. She has no shortness of breath or cough. She and her have been isolating at home with no known sick contacts and no one who has had suspicion for coronavirus. Principal Diagnosis Small bowel obstruction Discharge Exam Constitutional WD/WN, vitals as above + frail appearing Eyes PERRL, conjunctivae normal, anicteric sclerae ENMT external ear and nose normal, oropharynx normal Neck trachea midline, no thyromegaly Respiratory normal respiratory effort, lungs clear to auscultation Cardiovascular RRR, no murmur, no edema Gastrointestinal (Abdomen) Inspection/Auscultation: abdomen normal to inspection and normal bowel sounds; abdomen not distended Percussion/Palpation: abdomen soft; abdomen nontender, no guarding and abdomen not rigid Musculoskeletal no cyanosis or clubbing, extremities motor strength 5/5 Skin no rashes, warm and dry Neurologic patellar DTR's 2+ bilat, sensation intact and PERRL, EOMI, accommodation nl, no face palsy, no dysarthria Psychiatric A+Ox3, euthymic affect Lymphatic no cervical or axillary lymphadenopathy Discharge Data Allergies Allergy/AdvReac Type Severity Reaction Status Date / Time trazodone AdvReac Intermediate Dizziness Verified 12/12/19 13:29 Consultations 12/12/19 13:28 Consult General Surgery Stat ED Decision to Admit Stat 12/12/19 16:33 Consult General Surgery Routine Procedures Performed Operation Date: 12/17/19 10:00 <No data on this case meets the specified criteria> Ordered Studies 12/12/19 12:22 CT abd pelvis IV con only Stat 12/16/19 09:53 FL small bowel follow through Urgent Hospital Course (1) SBO (small bowel obstruction): * CT a/p on admission showed partial SBO with transition point in the distal jejunum. Likely due to prior procedures; no recurrent cancer seen. * KUB 12/13 with stable to slightly improved distention * SBFT on 12/15 with contrast into the colon in 20 minutes, essentially no delay, suggests a partial obstruction * General surgery on consult -- Dr. Gonzalez NGBridgette pulled on 12/15 she tolerated clear liquids on 12/15, full liquids on 12/16 and low fiber diet on 12/17 no nausea vomiting, she is having flatus and small BM clear to go home by general surgery she knows to follow up if needed for recurrent symptoms (2) ELOISE (acute kidney injury): * resolved. 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 Rare diagnosis with features of adenocarcinoma and carcinoid tumor. Treated with chemotherapy by Dr. Helton and cystoreduction and HIPEC at [facility]. No evidence of recurrence either on CT c/a/p during last oncology visits or on CT a/p this admission where SBO was diagnosed. * Outpatient follow up will be needed (4) HTN (hypertension): * History of this, but no longer on meds after her weight loss and dealing with her cancer. * BP stable * Continue to monitor --> prn hydralazine or if symptomatic. Asymptomatically currently (5) Anxiety associated with depression: * No overt anxiety or depression symptoms on interview today. * Continue to hold sertraline while NPO * Ativan PRN for anxiety (6) Hypokalemia: * K 2.7 on 12/12 * K stable at 3.6 for two days (7) DVT prophylaxis: * High risk with cancer (though not active) and age * Heparin 5000 units SQ Q12h -> Hold if surgery becomes more likely Dispo: d/c home (8) Protein-calorie malnutrition, moderate: moderate to severe, advance diet as tolerated Total Time Total Time Spent Total Time Spent (In Minutes): 31 minutes Total Time Includes: Examination of the Patient, Discharge Planning, Medication Reconciliation and Communication With Other Providers (Dr. Gonzalez) Discharge Plan Discharge Items Patient Disposition: Home - Self-Care Reason For Visit: SBO Discharge Diagnosis: Partial small bowel obstruction, resolved Condition on Discharge: Good Goals: low fiber diet, stay well hydrated stay active Activity: Resume your previous activity Weightbearing: Full weightbearing Non-emergency contact: Primary Care Provider and Surgeon Call non-emergency contact if: you have any medication questions, your symptoms worsen and you have a fever Follow-up/Referrals: Martell Esparza MD [Primary Care Provider] - Diet: Low Fiber Addtl Attending Provider Instructions: Medications: no changes Small bowel obstruction, clinically resolved at this time continue to eat a low fiber diet stay well hydrated and stay active, take walks when you can no need for hospital follow up certainly if you get similar symptoms in the future, return to the hospital as this could recur Pending Studies at Discharge: No Stand-Alone Forms: [facility], Smoking Cessation Medications and DC Order Prescriptions: Continued alprazolam 0.25 mg tablet 0.25 mg PO HS PRN (Reason: Anxiety) RF: 0 calcium carbonate-vitamin D3 [Calcium 500 + D] 500 mg(1,250mg) -200 unit Tablet 1 tab PO QAM RF: 0 sertraline 50 mg tablet 50 mg PO HS RF: 0 Discontinued atorvastatin 40 mg tablet 40 mg PO HS RF: 0 gemfibrozil 600 mg tablet 600 mg PO BID RF: 0 Discharge Orders: Discharge Order (Routine); Ordered 12/18/19 Ordered By: Chava Mora Admission Data Admit Date/Time: 12/12/19 14:11 Attending Provider: Chava Mora Admit Provider: Tello Wright Primary Care Provider: Martell Esparza Other Providers: Jase Gonzalez ; Tello Wright Other Interventions: Discharge Summary Assessment (RN) Last Done: 12/18/19 12:49 DC Date/Time DO NOT enter until pt leaves facility: 12/18/19 14:08 Coding Level of Care Code D/C Day Management >30 mins Diagnoses SBO (small bowel obstruction) K56.609 ELOISE (acute kidney injury) N17.9 Adenocarcinoma C80.1 HTN (hypertension) I10 Hypertension type: essential hypertension Anxiety associated with depression F41.8 Hypokalemia E87.6 DVT prophylaxis Z29.9 Protein-calorie malnutrition, moderate E44.0
== END 2019-12-18 14:08 | disposition home or self-care (01) | DRG 388 ==
LOC: ED 12:07 → 3E 14:11 → SUATTDRO 14:11 → 3E 15:55

== ENCOUNTER 2020-04-06 13:59 | Inpatient (IN) ==
[2020-04-06] MEDS ORDERED: MoRPHine SULFATE 4 MG/ML 1 ML CARP\\VIAL IV STA (15:31)
[2020-04-06 15:41] LABS: Basophils # (auto) 0.01 K/uL (0-0.2); Basophils % (auto) 0.3 %; Eosinophils # (auto) 0.36 K/uL (0-0.5); Eosinophils % (auto) 9.7 %; Hematocrit (blood only) 34.3 % (37-47); Hemoglobin 12.5 g/dL (12.0-16.0); Immature Granulocytes # (auto) 0.01 K/uL (0.00-0.02); Immature Granulocytes % (auto) 0.3 %; Lymphocytes % (auto) 13.5 %; Mean Corpuscular Hemoglobin 31.3 pg (25-34); Mean Corpuscular Hgb Conc 36.4 g/dL (32-36); Mean Platelet Volume 8.3 fL (7.4-10.4); Monocytes # (auto) 0.68 K/uL (0.11-0.59); Monocytes % (auto) 18.4 %; Neutrophils # (auto) 2.14 K/uL (1.4-6.5); Neutrophils % (auto) 57.8 %; Platelet Count 197 K/uL (130-400); RDW Coefficient of Variation 14.9 % (11.5-14.5); RDW Standard Deviation 44.9 fL (36.4-46.3); Red Blood Count 3.99 M/uL (4.2-5.4)
[2020-04-06] MEDS ORDERED: SODIUM CHLORIDE 0.9% 1000ML 1,000 ML IV SCH (15:45)
--- NOTE | 2020-04-06 15:50 | XRay Report ---
XR chest 1V portable CLINICAL HISTORY: weakness COMPARISON STUDY: Chest radiograph March 29, 2020. FINDINGS: Lung volumes are normal. Mild right upper lung densities are unchanged and favor scarring. There is no pneumothorax or pleural effusion. Cardiac size is normal. Mediastinal contours are normal . There is no evidence for pulmonary edema. Left subclavian [id number] is in place. Patient is mil dly rotated. IMPRESSION: No acute cardiopulmonary findings. No change in appearance of the chest. ACT 112: Negative or not required by law. Electronically signed by: Milton Lizarraga M.D. 04/06/2020 3:49 PM
--- NOTE | 2020-04-06 15:54 | Emergency Department Note ---
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 Patient's states that she was supposed to get a chemotherapy treatment this morning, but he canceled this because of her weakness. He states yesterday that she fainted, he believes this is from dehydration. There was no injury, she did not hit her head. He also notes that her blood pressure was low when she stood up today, and she has continued to fee l near syncopal with position changes today, though she has not had any repeat syncopal episodes. She gets dehydrated frequently and requires IV fluid for this. She has not required a blood transfusion in the past. Her home health nurse this morning recommended that they come to the emergency department for evaluation. He does note that she was here 2 weeks ago and was diagnosed with shingles in her right arm, the rash has improved, but she is continuing to complain of right arm pain and her arm has gotten progressively weaker, the states she has lost the use in her right hand for the last week. She states the pain is aching and burning, mostly in the right shoulder area and she rates this a 7/10. She has been taking OxyContin for her pain with some relief. She denies any headaches, neck pain or stiffness, fevers or chills. She denies any chest pain, shortness of breath, cough or hemoptysis, leg pain or swelling. She denies any nausea, vomiting, diarrhea, constipation, urinary complaints, or abdominal pain. REVIEW OF SYSTEMS: A complete 10 point review of systems was reviewed with the patient with pertinent positives and negatives as per history of present illness . All else were negative. PAST MEDICAL HISTORY: Metastatic adenocarcinoma, hypertension, hyperchole sterolemia, anxiety and depression SOCIAL HISTORY: Lives at home with her significant other, she denies tobacco use ALLERGIES: Reviewed in chart PHYSICAL EXAM: CONSTITUTIONAL: Pleasant and cooperative. Nontoxic appearing and in no acute distress. Frail appearing, thin and appears underweight. Pale appearing and moderately dehydrated. HEENT: Normocephalic, atraumatic. PERRL, EOMI, pale conjunctiva. Pharynx normal. Dry mucous membranes. NECK: Supple, full active range of motion without discomfort. No nuchal rigidity or meningismus. No cervical adenopathy. RESPIRATORY: Clear to auscultation bilaterally with no wheezing, crackles, rhonchi or stridor. Equal expansion bilaterally. CARDIOVASCULAR: Regular rate and rhythm with no murmurs, rubs or gallops. 2+ distal pulses in all 4 extremities. No edema. Hands and feet are cool and slightly mottled with delayed capillary refill 3 to 4 seconds. GASTROINTESTINAL: Soft, nontender, nondistended. No palpable masses or HSM. Bowel sounds present in all quadrants. No CVA tenderness bilaterally. MUSCULOSKELETAL: Full range of motion of all joints without discomfort. INTEGUMENTARY: No rash or other significant dermatologic conditions noted. NEUROLOGIC: Alert and oriented X 4 with normal affect. Cranial nerves II-XII grossly intact, no facial droop. No pronator drift. No leg drift. Right arm is weak compared to the left, with 4/5 strength throughout the right upper extremity and 3/5 strength in the right hand harness fitter. Sensation is intact to light touch. 5/5 strength in the left upper extremity in the bilateral lower extremit ies with intact sensation. Dorsiflexion and plantarflexion of the lower extremities intact and equal. ED COURSE AND MEDICAL DECISION MAKING: CC: Patient presenting with complaint of generalized weakness, syncope DIFFERENTIAL DIAGNOSIS: Includes, but not limited to dehydration, orthostatic hypotension, vasovagal syncope, electrolyte abnormality, cardiac causes, intracranial hemorrhage, CVA, infectious causes such as pneumonia, UTI, bacteremia/sepsis, among others. INTERPRETATION OF LABS: Leukopenia, mild anemia, normal platelets, marked hypokalemia with mild hyponatremia, normal renal function, normal liver enzymes with mildly elevated alk phos. Troponin is undetectable. Lactate is within normal limits. UA appears contaminated with large epithelial cells, no clear signs of an infection. IMAGING: XR chest 1V portable CLINICAL HISTORY: weakness COMPARISON STUDY: Chest radiograph March 29, 2020. FINDINGS: Lung volumes are normal. Mild right upper lung densities are unchanged and favor scarring. There is no pneumothorax or pleural effusion. Cardiac size is normal. Mediastinal contours are normal. There is no evidence for pulmonary edema. Left subclavian Tdjczy-m-[id number] is in place. Patient is mildly rotated. IMPRESSION: No acute cardiopulmonary findings. No change in appearance of the chest. ----- CT head/brain wo con CLINICAL HISTORY: 69 years-old Female with right arm weakness, syncope, hx CA. Acute weakness with strokelike symptoms TECHNIQUE: Multiple axial CT images of the head were obtained without contrast. A dose lowering technique was utilized adhering to the principles of ALARA. CT DOSE: 614.27 mGy.cm COMPARISON: None. FINDINGS: No acute intracranial hemorrhage, midline shift, intracranial mass, hydrocephalus, territorial ischemia or abnormal extra-axial collection. Areas of encephalomalacia, likely from remote infarct are noted within the levine radiata of the bilateral frontal lobes and superior aspect of the left caudate nucleus. Mild patchy white matter hypodensities are suggestive of chronic microvascular ischemic disease. The calvarium is intact. The paranasal sinuses, mastoid air cells, and middle ear cavities are clear. IMPRESSION: 1. No acute intracranial abnormality. 2. Encephalomalacia, likely from remote lacunar infarcts noted within the levine radiata distributions of the bilateral cerebral hemispheres. 3. Mild patchy white matter hypodensities suggestive of chronic microvascular ischemic disease. EKG: This rhythm with a rate of 97 bpm, normal intervals, no ectopy, T wave inversions noted in the lateral leads V4 through V6 which appears to be a change when compared to previous EKG from 03/29/2020 by my interpretation. MEDICATION RECONCILIATION: I attest that I have personally reviewed the patient 's current medication list. INITIAL VITAL SIGNS REVIEW: I reviewed the patient's initial vital signs and interpret them as follows: T: Afebrile; BP: Normotensive; HR: Mildly tachycardic; RR: Within normal limits; Pulse Ox: Within normal limits on room air. Blood pressure screening: The patient was found to have normal blood pressure on screening and does not require follow-up for repeat blood pressure check. MDM SUMMARY: Patient was evaluated at bedside, history and physical exam performed. Patient is alert and oriented, in no acute distress, resting calmly in the stretcher. She does have marked weakness of the right arm and hand on exam, the patient's notes this has been ongoing for at least 1 week, I did not feel that the patient met criteria for a stroke alert. Patient denies a headache, neck pain or stiffness, or fevers or chills. There is no meningismus on exam. The patient's notes that her home health nurse was checking her blood pressure today and it became very low when she stood up. She does appear clinically dehydrated as well and has a history of orthostasis. Cardiac monitoring: An order was placed for continuous cardiac monitoring. The monitor shows a rate of 96 bpm with normal sinus rhythm. EKG reviewed at bedside, noting normal sinus rhythm with some T wave inversions, this was compared to an old EKG and these appear to be new. Orders were placed at bedside for labs, UA, 1 L NSS fluid bolus for hydration, blood cultures x2, lactate, troponin, IV morphine to treat her pain, chest x- ray, CT of the head to evaluate for right arm weakness. Patient discussed with Dr. Beckham, who also evaluated the patient and agrees with my assessment, plan, and disposition. Labs and imaging reviewed as above, labs are most significant for marked hypokalemia, with a normal renal function. Mild leukopenia and anemia are consistent with baseline. Troponin is undetectable. Lactate within normal limits. Chest x-ray is clear. CT of the head does not show any acute intracranial abnormality. Potassium was repleted with 40 mEq IV and 60 mEq p.o. She was also given 1 g IV magnesium sulfate. Given the patient's significant hypokalemia with new EKG changes and syncope, I did feel that she warranted admission. I spoke on the phone with Dr. Gama, [facility], who agrees to evaluate the patient for admission. Patient reassessed multiple times throughout ED stay, she has remained hemodynamically stable and reports her arm pain was initially improved with the morphine, but is now increasing again. She was given p.o. oxycodone per her home medications. The patient and her were updated on all results and plan for admission, all questions were answered to the best of my abilities and they were comfortable with this plan. The patient was stable at time of admission. The chart was completed utilizing opinions[employer] Speech voice recognition software. Grammatical errors, random word insertions, pronoun errors, and incomplete sentences are an occasional consequence of this system due to software limitations, ambient noise, and hardware issues. Any formal questions or concerns about the content, text, or information contained within the body of this dictation should be directly addressed to the nurse practitioner for clarification. Past Med/Surg History Medical History (Updated 04/06/20 @ 19:07 by VIANNEY Feliciano) Anemia HX History of histoplasmosis scar tissue - lung History of seizures as a child last seizure at age 5 History of small bowel obstruction Left upper quadrant abdominal tenderness Migraine HX Port-A-Cath in place (05/03/19) Insertion of Mediport with Fluroscopy Left Subclavian Dr. Gonzalez 05/03/19 Pulmonary nodules SBO (small bowel obstruction) DECEMBER 2018- RESOLVED Weight loss, unintentional (COLON CA ISSUES) Surgical History History of bilateral tubal ligation History of bowel resection APPROX 12 IN COLON REMOVED MAR 2019- [facility] DR. GONZALEZ History of colonoscopy History of knee surgery as a child History of laparoscopy History of surgery bladder tack History of tubal ligation Family History Unknown Hypertension Mother Lung cancer Brother Colorectal cancer Social History Smoking Status: Never smoker Second Hand Exposure: No; Hx Alcohol Use: Yes Alcohol type: wine Hx Substance Use: No Preferred Language: Lithuanian Communication Ability: Effective Visual Impairment: No Limitations Senior Project Leader/Team Lead Required: No Beliefs That Will Affect Care: None marital status: Current Living Situation: Spouse current occupational status: retired Feels Safe at Home: Yes Allergies Allergies Allergy/AdvReac Type Severity Reaction Status Date / Time trazodone AdvReac Intermediate Dizziness Verified 04/06/20 16:12 Home Meds Home Medications Medication Instructions Recorded Confirmed alprazolam [Xanax] 0.25 mg PO BID PRN 04/06/20 04/06/20 potassium chloride 20 meq PO QAM 04/06/20 04/06/20 sertraline 100 mg PO HS 04/06/20 04/06/20 valacyclovir [Valtrex] 500 mg PO TID 04/06/20 04/06/20 Previous Rx's Medication Instructions Recorded gabapentin 100 mg capsule 200 mg PO BID #60 cap 04/03/20 oxycodone 5 mg tablet 5 mg PO Q4H PRN #30 tab 04/03/20 Results & Data (ED) Vital Signs Vital Signs - 24 hr 04/06/20 14:03 04/06/20 15:20 08/31/20 15:30 Temperature 36.8 C Temperature Source Oral Pulse Rate 102 H Pulse Rate [Apical] Respiratory Rate 20 Blood Pressure 117/81 Blood Pressure [Left Arm] Blood Pressure Mean 93 Blood Pressure Mean [Left Arm] Pulse Oximetry 98 Oxygen Delivery Method Room Air Room Air Room Air Sepsis Recent Fever Within 48 Hours No Sepsis New/Unexplained Change in Mental Status No Sepsis Action Taken by Nursing No Action Required 04/06/20 16:29 04/06/20 17:24 04/06/20 18:24 Temperature Temperature Source Pulse Rate Pulse Rate [Apical] 90 91 H 84 Respiratory Rate 18 18 18 Blood Pressure Blood Pressure [Left Arm] 162/76 H 163/71 H 164/89 H Blood Pressure Mean Blood Pressure Mean [Left Arm] 104 101 114 Pulse Oximetry 98 99 100 Oxygen Delivery Method Room Air Room Air Room Air Sepsis Recent Fever Within 48 Hours Sepsis New/Unexplained Change in Mental Status Sepsis Action Taken by Nursing Laboratory Data Result diagrams: 04/06/20 15:20 04/06/20 15:20 Lab Results 04/06/20 04/06/20 04/06/20 Range/Units 15:20 15:20 16:06 WBC 3.70 L (4.8-10.8) K/uL RBC 3.99 L (4.2-5.4) M/uL Hgb 12.5 (12.0-16.0) g/dL Hct 34.3 L (37-47) % MCV 86.0 (80-100) fL MCH 31.3 (25-34) pg MCHC 36.4 H (32-36) g/dL RDW Std Deviation 44.9 (36.4-46.3) fL RDW Coeff of Taniya 14.9 H (11.5-14.5) % Plt Count 197 (130-400) K/uL MPV 8.3 (7.4-10.4) fL Immature Gran % (Auto) 0.3 % Neut % (Auto) 57.8 % Lymph % (Auto) 13.5 % [place] % (Auto) 18.4 % Eos % (Auto) 9.7 % Baso % (Auto) 0.3 % Neut # (Auto) 2.14 (1.4-6.5) K/uL Lymph # (Auto) 0.50 L (1.2-3.4) K/uL [place] # (Auto) 0.68 H (0.11-0.59) K/uL Eos # (Auto) 0.36 (0-0.5) K/uL Baso # (Auto) 0.01 (0-0.2) K/uL Immature Gran # (Auto) 0.01 (0.00-0.02) K/uL Sodium 133 L (136-145) mmol/L Potassium 2.2 L* (3.5-5.1) mmol/L Chloride 94 L (98-107) mmol/L Carbon Dioxide 30 (21-32) mmol/L Anion Gap 10.0 (3-11) BUN 18 (7-18) mg/dl Creatinine 0.45 L (0.6-1.2) mg/dl Est Cr Clr Drug Dosing Not Reportable Est GFR ( Amer) 118.5 Est GFR (Non-Af Amer) 102.2 BUN/Creatinine Ratio 40.1 H (10-20) Glucose 111 H (70-99) mg/dl Lactate 1.8 (0.4-2.0) mmol/L Calcium 9.0 (8.5-10.1) mg/dl Phosphorus 3.4 (2.5-4.9) mg/dl Magnesium 1.8 (1.8-2.4) mg/dl Total Bilirubin 0.6 (0.2-1) mg/dl AST 19 (15-37) U/L ALT 19 (12-78) U/L Alkaline Phosphatase 137 H (45-117) U/L Troponin I < 0.015 (0-0.045) ng/ml Total Protein 7.1 (6.4-8.2) gm/dl Albumin 3.3 L (3.4-5.0) gm/dl Globulin 3.8 (2.5-4.0) gm/dl Albumin/Globulin Ratio 0.9 (0.9-2) Urine Color Urine Appearance (Clear) Urine pH (4.5-7.5) Ur Specific [place] (1.000-1.030) Urine Protein (Negative) Urine Glucose (UA) (Negative) Urine Ketones (Negative) Urine Blood (Negative) Urine Nitrite (Negative) Urine Bilirubin (Negative) Urine Urobilinogen (Negative) Ur Leukocyte Esterase (Negative) Urine WBC (Auto) (0-5) /hpf Urine RBC (Auto) (0-4) /hpf U Hyaline Cast (Auto) (0-5) /lpf U Epithel Cells (Auto) (0-5) /lpf Urine Bacteria (Auto) (Negative) 04/06/20 Range/Units 17:50 WBC (4.8-10.8) K/uL RBC (4.2-5.4) M/uL Hgb (12.0-16.0) g/dL Hct (37-47) % MCV (80-100) fL MCH (25-34) pg MCHC (32-36) g/dL RDW Std Deviation (36.4-46.3) fL RDW Coeff of Taniya (11.5-14.5) % Plt Count (130-400) K/uL MPV (7.4-10.4) fL Immature Gran % (Auto) % Neut % (Auto) % Lymph % (Auto) % [place] % (Auto) % Eos % (Auto) % Baso % (Auto) % Neut # (Auto) (1.4-6.5) K/uL Lymph # (Auto) (1.2-3.4) K/uL [place] # (Auto) (0.11-0.59) K/uL Eos # (Auto) (0-0.5) K/uL Baso # (Auto) (0-0.2) K/uL Immature Gran # (Auto) (0.00-0.02) K/uL Sodium (136-145) mmol/L Potassium (3.5-5.1) mmol/L Chloride (98-107) mmol/L Carbon Dioxide (21-32) mmol/L Anion Gap (3-11) BUN (7-18) mg/dl Creatinine (0.6-1.2) mg/dl Est Cr Clr Drug Dosing Est GFR ( Amer) Est GFR (Non-Af Amer) BUN/Creatinine Ratio (10-20) Glucose (70-99) mg/dl Lactate (0.4-2.0) mmol/L Calcium (8.5-10.1) mg/dl Phosphorus (2.5-4.9) mg/dl Magnesium (1.8-2.4) mg/dl Total Bilirubin (0.2-1) mg/dl AST (15-37) U/L ALT (12-78) U/L Alkaline Phosphatase (45-117) U/L Troponin I (0-0.045) ng/ml Total Protein (6.4-8.2) gm/dl Albumin (3.4-5.0) gm/dl Globulin (2.5-4.0) gm/dl Albumin/Globulin Ratio (0.9-2) Urine Color Dark Yellow Urine Appearance Clear (Clear) Urine pH 6.5 (4.5-7.5) Ur Specific [place] 1.020 (1.000-1.030) Urine Protein 1+ H (Negative) Urine Glucose (UA) Negative (Negative) Urine Ketones Negative (Negative) Urine Blood Negative (Negative) Urine Nitrite Negative (Negative) Urine Bilirubin Negative (Negative) Urine Urobilinogen Negative (Negative) Ur Leukocyte Esterase 1+ H (Negative) Urine WBC (Auto) 5-10 H (0-5) /hpf Urine RBC (Auto) 0-4 (0-4) /hpf U Hyaline Cast (Auto) 1-5 (0-5) /lpf U Epithel Cells (Auto) >30 H (0-5) /lpf Urine Bacteria (Auto) Negative (Negative) Administered Medications Potassium Chloride (K Miguel / Wtr) 20 meq in 100 mls @ 50 mls/hr IV Q2H BAKARI Stop: 04/06/20 20:44 Last Admin: 04/06/20 17:18 Dose: 50 mls/hr Documented by: [id number] Discontinued Medications Sodium Chloride (Nss 1000ml) 1,000 mls @ 999 mls/hr IV .Q1H1M BAKARI Stop: 04/06/20 16:45 Last Infusion: 04/06/20 17:00 Dose: 0 mls/hr Documented by: [id number] Admin: 04/06/20 16:00 Dose: 999 mls/hr Documented by: [id number] Magnesium Sulfate/Dextrose (Magnesium Sulfate / D5w) 1 gm in 100 mls @ 100 mls/hr IV NOW [facility] Stop: 04/06/20 17:08 Last Infusion: 04/06/20 18:17 Dose: 0 mls/hr Documented by: [id number] Admin: 04/06/20 17:17 Dose: 100 mls/hr Documented by: [id number] Morphine Sulfate (Morphine Sulfate 4 Mg/Ml 1 Ml Carp\Vial) 4 mg IV NOW STA Stop: 04/06/20 15:32 Last Admin: 04/06/20 16:26 Dose: 4 mg Documented by: [id number] Ondansetron HCl (Ondansetron Inj 2 Mg/Ml 2 Ml Vial) 4 mg IV NOW STA Stop: 04/06/20 17:09 Last Admin: 04/06/20 17:18 Dose: Not Given Documented by: [id number] Oxycodone HCl (Oxycodone Hcl Ir 5 Mg Tab (Immediate Release)) 5 mg PO NOW STA Stop: 04/06/20 18:17 Last Admin: 04/06/20 18:24 Dose: 5 mg Documented by: [id number] Potassium Chloride (Potassium Chloride 20 Meq Tabcr) 60 meq PO NOW STA Stop: 04/06/20 16:53 Last Admin: 04/06/20 17:23 Dose: 60 meq Documented by: [id number] Discharge Plan Visit Data Chief Complaint: Weakness Stated Complaint: WEAKNESS,LOSS OF LEFT ARM USE ED Provider: Eben Beckham ED Midlevel Provider: Brooke Chao Discharge Problem: Hypokalemia, Acute dehydration, Pain of right arm Patient Disposition: Admitted As Inpatient Forms Stand Alone Forms: [facility] Prescriptions Prescriptions: No Action gabapentin 100 mg capsule 200 mg PO BID Qty: 60 RF: 2 oxycodone 5 mg tablet 5 mg PO Q4H PRN (Reason: pain) Qty: 30 RF: 0 valacyclovir [Valtrex] 500 mg tablet 500 mg PO TID RF: 0 alprazolam [Xanax] 0.25 mg tablet 0.25 mg PO BID PRN (Reason: Anxiety) RF: 0 sertraline 100 mg tablet 100 mg PO HS RF: 0 potassium chloride 20 mEq tablet extended release 20 meq PO QAM RF: 0 Referrals Referrals: Martell Esparza MD [Primary Care Provider] -
[2020-04-06 16:00] LABS: Alanine Aminotransferase 19 U/L (12-78); Albumin Level 3.3 gm/dl (3.4-5.0); Aspartate Aminotransferase 19 U/L (15-37); BUN Creatinine Ratio 40.1 (10-20); Blood Urea Nitrogen 18 mg/dl (7-18); Carbon Dioxide 30 mmol/L (21-32); Chloride 94 mmol/L (98-107); Est GFR (African American) 118.5; Est GFR (Non-African American) 102.2; Glucose 111 mg/dl (70-99); Magnesium 1.8 mg/dl (1.8-2.4); Potassium 2.2 mmol/L (3.5-5.1); Sodium 133 mmol/L (136-145)
[2020-04-06 16:06] LABS: Albumin Globulin Ratio 0.9 (0.9-2); Alkaline Phosphatase 137 U/L (45-117); Bilirubin,Total 0.6 mg/dl (0.2-1); Globulin 3.8 gm/dl (2.5-4.0); Phosphorus 3.4 mg/dl (2.5-4.9); Total Protein 7.1 gm/dl (6.4-8.2); Troponin I < 0.015 ng/ml (0-0.045)
[2020-04-06] MEDS ORDERED: POTASSIUM CHLORIDE / WTR 20 MEQ/100 ML PLCT IV ONE (16:08)
[2020-04-06] MEDS ORDERED: POTASSIUM CHLORIDE 10 MEQ TABCR PO STA (16:08)
[2020-04-06] MEDS ORDERED: MAGNESIUM SULFATE / D5W 1 GM/100 ML BAG IV STA (16:09)
--- NOTE | 2020-04-06 16:11 | Emergency Department Note ---
ED Visit Note The patient was seen and examined with Brooke Chao NP. I agree with the history, physical and findings. Please see the note for disposition and details. Patient has EKG changes and hypokalemia. Replacement underway. Internal medicine consulted. .
[2020-04-06] MEDS ORDERED: POTASSIUM CHLORIDE 20 MEQ TABCR PO STA (16:52)
--- NOTE | 2020-04-06 17:04 | CT Scan Report ---
CT head/brain wo con CLINICAL HISTORY: 69 years-old Female with right arm weakness, syncope, hx CA. Acute weakness with s trokelike symptoms TECHNIQUE: Multiple axial CT images of the head were obtained without contrast. A dose lowering tech nique was utilized adhering to the principles of ALARA. CT DOSE: 614.27 mGy.cm COMPARISON: None. FINDINGS: No acute intracranial hemorrhage, midline shift, intracranial mass, hydrocephalus, territorial ischem ia or abnormal extra-axial collection. Areas of encephalomalacia, likely from remote infarct are note d within the levine radiata of the bilateral frontal lobes and superior aspect of the left caudate nu cleus. Mild patchy white matter hypodensities are suggestive of chronic microvascular ischemic diseas e. The calvarium is intact. The paranasal sinuses, mastoid air cells, and middle ear cavities are clear . IMPRESSION: 1. No acute intracranial abnormality. 2. Encephalomalacia, likely from remote lacunar infarcts noted within the levine radiata distribution s of the bilateral cerebral hemispheres. 3. Mild patchy white matter hypodensities suggestive of chronic microvascular ischemic disease. ACT 112: Negative or not required by law. The above report was generated using voice recognition software. It may contain grammatical, syntax o r spelling errors. Electronically signed by: Navneet Dickson M.D. 04/06/2020 5:02 PM
[2020-04-06] MEDS ORDERED: ONDANSETRON INJ 2 MG/ML 2 ML VIAL IV STA (17:08)
[2020-04-06] MEDS: POTASSIUM CHLORIDE / WTR 20 MEQ/100 ML PLCT IV SCH ×2 (17:18→19:21)
--- NOTE | 2020-04-06 18:09 | History & Physical Report ---
Date of Service April 06, 2020 Assessment & Plan (1) Hypokalemia: Keesha Anna is a 69 year old female with stage IV cancer, HTN, HLD, anxiety, and shingles who presents with weakness and pain of the upper extremities and syncope who was found to have a potassium of 2.2 in the setting of reduced PO intake 2/2 poor appetite. Upper extremity weakness and pain, hypokalemia: likely hypokalemia secondary to poor PO intake -received 1L bolus of normal saline in ED -received 60mEq potassium chloride in ED -normal saline 100mL/hr (1.25x maintenance for her weight of 90lbs) with 20mEq KCl q10hr IV -admit to inpatient -acetaminophen 650mg PO q4hr PRN -BMP qAM Stage IV appendiceal cancer -today's chemotherapy was missed and needs to be rescheduled -continue oxycodone 5mg PO q6hr PRN -acetaminophen 650mg PO q4hr PRN Shingles: 7-day course of valacyclovir was to be completed today -finish course, then discontinue Anxiety -c/w sertraline 100mg PO qhs -c/w alprazolam 0.25mg PO bid PRN Diet: heart healthy Code status: DNR/DNI per patient interview in the ED, I could not find the advanced directive in our files DVT prophylaxis: lovenox 30mg qPM Dispo: admit to inpatient (2) Metastatic adenocarcinoma: (3) Severe protein-calorie malnutrition: (4) Anxiety associated with depression: (5) HTN (hypertension): (6) Right arm weakness: (7) DVT prophylaxis: History of Present Illness Chief Complaint: generalized weakness, bilateral upper extremity pain, syncope Primary Care Provider: Martell Esparza MD Patient is a 69 year old female with 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 Patient was seen here about two weeks ago for a painful rash on her arm that was diagnosed as shingles; the rash has improved in the time since, but her pain has continued, and in that arm she has experienced progressive weakness and has been largely unable to use her right hand over the past week. Then, over the past few days, she experienced a worsening generalized weakness. Yesterday, while trying to get up from a chair with her 's help, she fainted and was caught by her . He helped her onto a nearby sofa, and she immediately regained consciousness. She did not hit her head during this episode. She remembers trying to get up from the chair, and then remembers regaining consciousness on the sofa. She was supposed to have chemotherapy today, but she and her decided yesterday to cancel this due to her weakness. This morning, she was assessed by a home health aide during a routine visit, and the home health aide recommended she come to the ED due to this progressive generalized weakness. Today, in the ED, she was found to have a potassium of 2.2. In the ED, she has received fluids as well as potassium and magnesium. She continues to report weakness in her upper extremities, worse in her right arm and hand compared to the left. She complains of severe pain in her right upper extremity, which is largely unchanged from the pain she has had over the past two weeks since being diagnosed with singles; she also notes new generalized pain in her left upper extremity over the past day or two. She describes this pain as dull, burning, 8/10 in severity, and does not radiate. Her pain improves with rest and with pain medication. She endorses weakness in her lower extremities, but notes this has been slowly progressive over the past few months; she does not believe this has changed in the past days or weeks. She endorses reduced PO intake over the past few days and a weight loss of about 6lbs over the past 1-2 weeks. Patient denies chest pain, palpitations, shortness of breath, cough, fever, abdominal pain, nausea, vomiting, constipation, diarrhea, hemoptysis, or urinary complaints. She reports a history of frequent dehydration for which she often requires IV fluids, including twice in the past week. She has not required a blood transfusion in the past. Allergies Allergy/AdvReac Type Severity Reaction Status Date / Time trazodone AdvReac Intermediate Dizziness Verified 04/06/20 16:12 Home Medications Home Medications Medication Instructions Recorded Confirmed Type gabapentin 100 mg capsule 200 mg PO BID #60 cap 04/03/20 04/06/20 Rx oxycodone 5 mg tablet 5 mg PO Q4H PRN #30 tab 04/03/20 04/06/20 Rx alprazolam [Xanax] 0.25 mg PO BID PRN 04/06/20 04/06/20 History potassium chloride 20 meq PO QAM 04/06/20 04/06/20 History sertraline 100 mg PO HS 04/06/20 04/06/20 History valacyclovir [Valtrex] 500 mg PO TID 04/06/20 04/06/20 History Past Med/Surg History Medical History Anemia HX History of histoplasmosis scar tissue - lung History of seizures as a child last seizure at age 5 History of small bowel obstruction Left upper quadrant abdominal tenderness Migraine HX Port-A-Cath in place (05/03/19) Insertion of Mediport with Fluroscopy Left Subclavian Dr. Gonzalez 05/03/19 Pulmonary nodules SBO (small bowel obstruction) DECEMBER 2018- RESOLVED Weight loss, unintentional (COLON CA ISSUES) Surgical History History of bilateral tubal ligation History of bowel resection APPROX 12 IN COLON REMOVED MAR 2019- [facility] DR. GONZALEZ History of colonoscopy History of knee surgery as a child History of laparoscopy History of surgery bladder tack History of tubal ligation Family History Unknown Hypertension Mother Lung cancer Brother Colorectal cancer Social History Smoking Status: Never smoker Second Hand Exposure: No; Hx Alcohol Use: No Hx Substance Use: No Preferred Language: Kuwaiti Communication Ability: Effective Visual Impairment: No Limitations Telescope Repairer Required: No Beliefs That Will Affect Care: None marital status: Current Living Situation: Spouse current occupational status: retired Other Information That Helps Us Care for You: No Feels Safe at Home: Yes Safety Concerns: Feels Safe At This Time Review of Systems Review of Systems: All systems reviewed & are unremarkable except as noted in HPI & below Constitutional: no fever, no chills and no sweats Respiratory: no cough, no chest congestion and no dyspnea Cardiovascular: no chest pain, no chest pain with activity, no palpitations and no edema Gastrointestinal: no abdominal pain, no nausea, no vomiting, no constipation and no diarrhea/loose stools Musculoskeletal: no back pain, no neck pain and no stiffness Physical Exam Constitutional: + thin and + cachectic; no acute distress and no altered mental status ENMT: mucous membranes slightly dry Respiratory: normal respiratory effort, lungs clear to auscultation Auscultation: no crackles, no rales and no rhonchi Cardiovascular: RRR, no murmur, no edema Gastrointestinal (Abdomen): normal bowel sounds, soft, nontender, no hepatosplenomegaly Musculoskeletal: Head/Neck/Chest: normocephalic and head atraumatic Upper extremity strength 4/5 bilaterally, asphalt layer strength poor but worse in right hand compared to left, lower extremity strength 5/5 bilaterally. Mild muscular tenderness of the left upper extremity, moderate muscular tenderness of the upper extremity. Skin: capillary refill 3-4 seconds Neurologic: patellar DTR's 2+ bilat, sensation intact and PERRL, EOMI, accommodation nl, no face palsy, no dysarthria Psychiatric: A+Ox3, euthymic affect Results & Data Results & Data ([facility]) Vital Signs (Past 12 Hours) Vital Signs Temp Pulse Pulse Resp BP BP Pulse Ox 04/06/20 17:24 91 H 18 163/71 H 99 04/06/20 16:29 90 18 162/76 H 98 04/06/20 14:03 36.8 C 102 H 20 117/81 98 Code Status & VTE Plan VTE Prophylaxis Plan VTE Prophylaxis will be ordered: Yes Supervising Physician Co-Signing Physician Notes I personally saw and examined the patient. I verified all nicolas points and agree with Resident Physician Casey Sena MD with the following exceptions and/or additions: 69-year-old female with significant history of metastatic appendiceal adenocarcinoma, recent diagnosis of shingles, small bowel obstruction presents to the ER with marked generalized weakness and syncopal event yesterday. She is right handed with significant RUE progressing over the past 2 weeks. Although history is somewhat confusing since ER note mentioned she specifically did not have a weakness 8 days ago - main issue at that time appeared to be pain. She reported the pain was anterior and lateral aching, not shooting pain rather than on the scapula around her back as previously noted. O/E HS1+2, no murmurs Chest CTAB Abdo SNT, BS +ve Neuro: PERRL, CN2->12 intact, speech examination normal, focal neurological deficit non-dermatomal on RUE, elbow ext 2/5 flex 4/5, wrist ext 3/5, flex 3/5, finger ext 3/5, flex 3/5, abduct 2/5, adduct 2/5, thumb adduction 2/5, flex 2/5, LUE 4-5/5, b/l LE equal strength 4-5/5. DTR b/l equal: Biceps brisk 2+, triceps absent, supinator normal 1+, patellar absent, Achilles absent. A/P Right upper extremity weakness -right upper extremity appears to be a focal neurological deficit as opposed to her otherwise generalized weakness. Possible peripheral neuropathy related to recently diagnosed shingles although nondermatomal distribution and intact biceps tendon reflex suggest central rather than peripheral neuropathy, and lack of sensory deficit also favors an alternative diagnosis. MRI cervical spine w/wo contrast to rule out bone metastatic cervical spinal compression. MRI brain w/wo IV contrast to assess brain metastatic disease. Focal neurological distribution and head CT would suggest levine radiata ischemic stroke. Since she has had symptoms for the last 2 weeks this is not acute, therefore will get MRI brain prior to further work- up with CT angiogram head/neck and echocardiogram as diagnosis currently is unclear. Aspirin 81 mg p.o. now. Consult neurology depending on results of MRIs. Recent diagnosis of shingles - unclear recent diagnosis given also treated for cellulitis with keflex prior to this, rash description. Unclear reason for reduced dose. No significant cutaneous lesions to suggest need for prolonged course. If MRI brain/cervical spine unremarkable and RUE weakness suspected to be due to shingles consider IV acyclovir until improvement noted. Severe hypokalemia - likely contributing towards marked muscle weakness, total CK negative for rhabdomyolysis. Replacement with KCl 60 meq PO + 20 meq IV given in ER, repeat BMP in AM (additional dosing depending on AM potassium). Unclear cause other than reduced intake / poor absorption as not on diuretics and not having significant diarrhea from history. Will add urine potassium to further assess for renal losses. Syncope - likely related to dehydration and generalized weakness however concerning for arrhythmia with concurrent severe hypokalemia. Monitor for arrhythmia on telemetry. Severe protein-calorie malnutrition - Boost PRN, consider palliative consult or starting mirtazapine for appetite stimulation. Metastatic appendiceal adenocarcinoma - prior concerning L1 bone met on MRI. Monitor for SBO given recent history of this. Resident Activity Tracking Resident Involvement: Resident Care Provided Care Provided: Adult Hospital Medicine (1) HTN (hypertension) Hypertension type: essential hypertension Qualified Code(s): I10 - Essential (primary) hypertension
[2020-04-06] MEDS ORDERED: OXYCODONE HCL IR 5 MG TAB (IMMEDIATE RELEASE) PO STA (18:16)
[2020-04-06 18:31] LABS: Appearance Urine Clear (Clear); Bacteria Urine Automated Negative (Negative); Bilirubin Urine Negative (Negative); Blood Urine Negative (Negative); Color Urine Dark Yellow; Epithelial Cell Urine Auto >30 /lpf (0-5); Glucose Urine UA Negative (Negative); Ketones Urine Negative (Negative); Leukocyte Esterase Urine 1+ (Negative); Nitrite Urine Negative (Negative); Protein Urine 1+ (Negative); RBC Urine Automated 0-4 /hpf (0-4); Urobilinogen Urine Negative (Negative); pH Urine 6.5 (4.5-7.5)
[2020-04-06] MEDS ORDERED: ONDANSETRON INJ 2 MG/ML 2 ML VIAL IV PRN (20:02)
[2020-04-06] MEDS ORDERED: ALUMINUM/MAGNESIUM SUSP 30 ML UDC PO PRN (20:02)
[2020-04-06] MEDS ORDERED: VALACYCLOVIR HCL 500 MG TABLET PO SCH (21:00)
[2020-04-06] MEDS ORDERED: ALPRAZolam 0.25 MG TABLET PO PRN ×2 (21:00→21:33)
[2020-04-06] MEDS: GABAPENTIN 100 MG CAP PO SCH (21:09)
[2020-04-06] MEDS: SERTRALINE HCL 100 MG TABLET PO SCH (21:09)
[2020-04-06] MEDS: NSS + 20MEQ KCL 20 MEQ/1,000 ML BAG IV SCH (21:10)
[2020-04-06] MEDS ORDERED: ASPIRIN 81 MG ECTAB PO ONE (21:45)
[2020-04-06] MEDS: OXYCODONE HCL IR 5 MG TAB (IMMEDIATE RELEASE) PO PRN (22:17)
[2020-04-06] MEDS: ENOXAPARIN INJ 30 MG/0.3 ML SYR SQ SCH (22:17)
[2020-04-07] MEDS ORDERED: HEPARIN 100 UNIT/ML 5ML FLUSH FLUSH PRN (00:56)
--- NOTE | 2020-04-07 01:33 | Billing Data ---
Date of Service April 06, 2020 Coding Level of Care Code 08452 Initial Inpt Care Lvl 3
[2020-04-07] MEDS ORDERED: GADOBUTROL 65ML VIAL IV ONE (02:39)
[2020-04-07] MEDS: OXYCODONE HCL IR 5 MG TAB (IMMEDIATE RELEASE) PO PRN ×3 (02:56→15:59)
[2020-04-07] MEDS: ACETAMINOPHEN 325 MG TAB PO PRN ×2 (05:48→22:44)
--- NOTE | 2020-04-07 06:55 | Magnetic Resonance Report ---
MRI OF THE BRAIN WITHOUT AND WITH IV CONTRAST CLINICAL HISTORY: metastatic adenocarcinoma, LUE weakness ?CVA/mets COMPARISON STUDY: Head CT April 06, 2020. TECHNIQUE: Utilizing a 1.5 Carmen magnet and dedicated coil, multiplanar, multiecho imaging of the br ain was performed pre and postcontrast administration. IV administration of 4.4 mL of Gadavist contr ast was uneventful. Thin cut T1 post contrast imaging with multiplanar reformats was performed. FINDINGS: There are no foci of restricted diffusion to suggest acute infarct. No acute intracranial h emorrhage, midline shift or mass effect is present. Ventricular system is unremarkable. Basilar ciste rns are patent. There are no extra-axial collections. Flow-voids for the major intracranial vessels a re present. There is an old left basal ganglia infarct. There is also an old lacunar infarct within t he right internal capsule. No intracranial mass or pathologic enhancement is noted. Mild white matter T2 hyperintensity reflect small vessel disease. Calvarial signal is normal. No calvarial lesion is n oted. IMPRESSION: 1. No acute intracranial findings. 2. No evidence of metastatic disease. 3. 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 Mild small vessel disease. ACT 112: Negative or not required by law. Electronically signed by: Milton Lizarraga M.D. 04/07/2020 6:53 AM
[2020-04-07 07:01] LABS: BUN Creatinine Ratio 34.7 (10-20); Calcium 8.5 mg/dl (8.5-10.1); Creatinine Clr Calc Pharmacy 71.9 ml/min; Est GFR (African American) 114.5; Est GFR (Non-African American) 98.8; Potassium 3.3 mmol/L (3.5-5.1)
[2020-04-07 07:08] LABS: Thyroid Stimulating Hormone 0.81 uIu/ml (0.300-4.500)
--- NOTE | 2020-04-07 07:38 | Magnetic Resonance Report ---
MR cervical spine wo/w con CLINICAL HISTORY: Left upper extremity weakness. Known metastatic adenocarcinoma. Possible metastatic disease to the spine. SEVERE RIGHT ARM RADICULOPATHY. TECHNIQUE: Sagittal and axial T1, T2 and STIR images were obtained. Images were acquired before and a fter the demonstration of 4.4 cc of intravenous Gadavist COMPARISON STUDY: CT scan dated 07/24/2019 There are no suspicious areas of marrow replacement. No intrinsic cervical cord lesions are visualize d. C2-3: There is no evidence of disc bulge or focal herniation. There is no spinal or foraminal stenosi s. C3-4: There is no evidence of disc bulge or focal herniation. There is no spinal or foraminal stenosi s. C4-5: There are no disc bulges or focal herniations. There is no spinal or foraminal stenosis. C5-6 :There is a small left paracentral disc protrusion. There is minimal effacement the left anterio r aspect of the thecal sac. There is no significant spinal or foraminal stenosis C6-7: There is a minor circumferential disc bulge. There is no significant spinal or foraminal stenos is C7-T1: There is no evidence of disc bulge or focal herniation. There is no evidence of spinal or fora sd stenosis. Postcontrast images reveal no pathologically enhancing lesions. IMPRESSION: 1. No evidence of metastatic disease. No evidence of pathologic enhancement 2. Mild multilevel spondylytic changes. Small left paracentral disc protrusion at the C5-6 level. ACT 112: Negative or not required by law. Electronically signed by: Donte Fernandez M.D. 04/07/2020 7:37 AM
[2020-04-07] MEDS ORDERED: POTASSIUM CHLORIDE 20 MEQ TABCR PO ONE (08:00)
--- NOTE | 2020-04-07 08:10 | Hospitalist Progress Note ---
Date of Service April 07, 2020 Assessment & Plan (1) Right arm weakness: Patient is a 69 year old female with PMHx metastatic appendiceal adenocarcinoma, shingles, small bowel obstruction, HTN, HLD who presented to the ED for generalized weakness, syncope, and focal R arm weakness. Acute Dehydration and Severe Protein-Calorie Malnutrition -Likely the cause of patients initial syncopal episode and over all fatigue -IVF rehydration, currently NSS+KCl 20meq 100ml/hr -Recommend that patient get at least 60 oz of fluids and 1500 calories daily minimum upon discharge -Dietary consult requested Hypokalemia -Repleted in ED and upon admission -Was still low on morning labs at K 3.3, repleted with Klor-con 40meq -Will repeat BMP in AM RUE Weakness and pain -Etiology at this time still nebulous, differential includes Stroke, Metastatic lesion, Shingles associated radiculitis -Shingles adequately treated with Acyclovir x 1 week, no rash still visible -MRI Brain and Neck negative for acute stroke or metastatic lesions -Pain control with Oxycodone and Gabapentin -Curbside Neurology, recommend outpatient EMG -Will continue to follow in event symptoms change or worsen Stage IV appendiceal cancer -Will require rescheduling of chemotherapy Anxiety -Continue Sertraline -Continue Alprazolam Dispo: Medsurg w/ Tele FEN: HH Diet, NSS +KCl 20meq 100ml/hr DVT: Enoxaparin Code: DNR/DNI (2) Severe protein-calorie malnutrition: (3) Acute dehydration: (4) Hypokalemia: Admission and Anticipated Discharge Date Admission Date: April 06, 2020 Supervising Physician Co-Signing Physician Notes I personally examined the patient and verified all nicolas points of history and exam, discussed case, and agree with decision making with Dr Lee. feeling better except R arm weakness. discussed fluid intake and calories vitals noted nad heent nc at mmm breathing unlabored no accessory muscles good effort skin no rashes no pallor or icterus. neuro shows ~2/5 weakness at wrist, ~3/5 flex and 3+/5 extend at elbow, ~4/5 flex/ex at shoulder, good shoulder shrug arm weakness - ?shingles sequellae vs other. no atrophy but w significant weakness - next step EMG/NCV - will ask to have this arranged chika as outpt severe protein/calorie malnutrition/dehydration/hypokalemia - IVF, supplement K. educating on nutritional and fluid goals hopefully home tomorrow otherwise as above Subjective Patient evaluated while sitting in the chair this AM. Patient noting that she actually feels much better at this time in regards to her over all weakness. She believes that she was really dehydrated and that her low potassium affected her. She notes that she is still having weakness in her R arm, mostly noted at her hand. She also notes a burning pain in that arm 5/10, improved while on analgesics. She notes that the weakness and pain started around the same time 2 weeks ago as her Shingles infection. Review of Systems Constitutional: + fatigue and + weakness; no fever and no chills Ear, Nose, Mouth, Throat: no dizziness Respiratory: no cough and no dyspnea Cardiovascular: no chest pain, no chest pain at rest, no radiating jaw, neck or arm pain and no dyspnea on exertion Gastrointestinal: no abdominal pain, no nausea and no vomiting Genitourinary: no dysuria Musculoskeletal: + muscle weakness (R hand ) Integumentary: no rash Physical Exam Constitutional: well developed and well nourished; no acute distress Eyes: PERRL, conjunctivae normal, anicteric sclerae ENMT: external ear and nose normal, oropharynx normal Respiratory: normal respiratory effort, lungs clear to auscultation Cardiovascular: RRR, no murmur, no edema Chest (Breasts): Chest: + vascular access device or port (on L ) Gastrointestinal (Abdomen): normal bowel sounds, soft, nontender, no hepatosplenomegaly Musculoskeletal: Weakness noted in the RUE with poor broadcast program director strength. Weakness worsens distally with 2/5 wrist flexion and extension. Unable to abduction or adduct fingers and unable to keep fingers abducted after passive assistance. Elb ow extension 3+ and elbow flexion 3-. Sensation normal. Skin: + rash (remnants of rash noted on inner R arm ) Neurologic: PERRL, EOMI, accommodation nl, no face palsy, no dysarthria CN's II-XI intact bilaterally Psychiatric: A+Ox3, euthymic affect Results & Data Results & Data ([facility]) Vital Signs (Past 12 Hours) Vital Signs Temp Pulse Pulse Resp BP Pulse Ox 04/07/20 07:08 36.6 C 86 16 144/83 H 97 04/07/20 02:48 36.9 C 99 H 17 155/78 H 96 04/07/20 01:04 98 H 04/06/20 20:38 94 H Resident Activity Tracking Resident Involvement: Resident Care Provided Care Provided: Adult Hospital Medicine
[2020-04-07] MEDS: GABAPENTIN 100 MG CAP PO SCH ×2 (08:14→20:21)
[2020-04-07] MEDS: NSS + 20MEQ KCL 20 MEQ/1,000 ML BAG IV SCH ×2 (09:36→19:20)
[2020-04-07] MEDS ORDERED: Nursing to Pharmacy Communication SCH (16:00)
--- NOTE | 2020-04-07 19:27 | Billing Data ---
Date of Service April 07, 2020 Coding Level of Care Code 18321 Subseq Hosp Care Lvl 3
[2020-04-07] MEDS: ENOXAPARIN INJ 30 MG/0.3 ML SYR SQ SCH (20:21)
[2020-04-07] MEDS: SERTRALINE HCL 100 MG TABLET PO SCH (20:21)
--- NOTE | 2020-04-07 21:59 | Electrocardiogram Report ---
Test Reason : Blood Pressure : / mmHG Vent. Rate : 097 BPM Atrial Rate : 097 BPM P-R Int : 146 ms QRS Dur : 078 ms QT Int : 348 ms P-R-T Axes : 075 080 089 degrees QTc Int : 441 ms Normal sinus rhythm Abnormal ECG When compared with ECG of 29-MAR-2020 18:21, T wave inversion now evident in Anterolateral leads Confirmed by Zia Hill ([id number]) on 04/07/2020 9:59:26 PM Referred By: REFERRED SELF Confirmed By:Zia Hill
[2020-04-08] MEDS: OXYCODONE HCL IR 5 MG TAB (IMMEDIATE RELEASE) PO PRN ×2 (00:20→04:21)
[2020-04-08] MEDS: NSS + 20MEQ KCL 20 MEQ/1,000 ML BAG IV SCH (05:09)
[2020-04-08] MEDS: GABAPENTIN 100 MG CAP PO SCH (07:59)
[2020-04-08 08:20] LABS: BUN Creatinine Ratio 19.3 (10-20); Creatinine Clr Calc Pharmacy 104.3 ml/min; Est GFR (African American) 129.9; Est GFR (Non-African American) 112.1; Potassium 2.9 mmol/L (3.5-5.1)
[2020-04-08] MEDS ORDERED: POTASSIUM CHLORIDE 20 MEQ TABCR PO STA (08:30)
--- NOTE | 2020-04-08 09:54 | Discharge Summary ---
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 Patient was seen here about two weeks ago for a painful rash on her arm that was diagnosed as shingles; the rash has improved in the time since, but her pain has continued, and in that arm she has experienced progressive weakness and has been largely unable to use her right hand over the past week. Then, over the past few days, she experienced a worsening generalized weakness. Yesterday, while trying to get up from a chair with her 's help, she fainted and was caught by her . He helped her onto a nearby sofa, and she immediately regained consciousness. She did not hit her head during this episode. She remembers trying to get up from the chair, and then remembers regaining consciousness on the sofa. She was supposed to have chemotherapy today, but she and her decided yesterday to cancel this due to her weakness. This morning, she was assessed by a home health aide during a routine visit, and the home health aide recommended she come to the ED due to this progressive generalized weakness. Today, in the ED, she was found to have a potassium of 2.2. In the ED, she has received fluids as well as potassium and magnesium. She continues to report weakness in her upper extremities, worse in her right arm and hand compared to the left. She complains of severe pain in her right upper extremity, which is largely unchanged from the pain she has had over the past two weeks since being diagnosed with singles; she also notes new generalized pain in her left upper extremity over the past day or two. She describes this pain as dull, burning, 8/10 in severity, and does not radiate. Her pain improves with rest and with pain medication. She endorses weakness in her lower extremities, but notes this has been slowly progressive over the past few months; she does not believe this has changed in the past days or weeks. She endorses reduced PO intake over the past few days and a weight loss of about 6lbs over the past 1-2 weeks. Patient denies chest pain, palpitations, shortness of breath, cough, fever, abdominal pain, nausea, vomiting, constipation, diarrhea, hemoptysis, or urinary complaints. She reports a history of frequent dehydration for which she often requires IV fluids, including twice in the past week. She has not required a blood transfusion in the past. Admission Exam Per Admitting Provider Constitutional: + thin and + cachectic; no acute distress and no altered mental status ENMT: mucous membranes slightly dry Respiratory: normal respiratory effort, lungs clear to auscultation Auscultation: no crackles, no rales and no rhonchi Cardiovascular: RRR, no murmur, no edema Gastrointestinal (Abdomen): normal bowel sounds, soft, nontender, no hepatosplenomegaly Musculoskeletal: Head/Neck/Chest: normocephalic and head atraumatic Upper extremity strength 4/5 bilaterally, email designer strength poor but worse in right hand compared to left, lower extremity strength 5/5 bilaterally. Mild muscular tenderness of the left upper extremity, moderate muscular tenderness of the upper extremity. Skin: capillary refill 3-4 seconds Neurologic: patellar DTR's 2+ bilat, sensation intact and PERRL, EOMI, accommodation nl, no face palsy, no dysarthria Psychiatric: A+Ox3, euthymic affect Principal Diagnosis Acute Dehydration, Hypokalemia, R Arm Weakness Discharge Exam Constitutional well developed and well nourished; no acute distress Eyes PERRL, conjunctivae normal, anicteric sclerae ENMT external ear and nose normal, oropharynx normal Respiratory normal respiratory effort, lungs clear to auscultation Cardiovascular RRR, no murmur, no edema Chest (Breasts) Chest: + vascular access device or port (on L ) Gastrointestinal (Abdomen) normal bowel sounds, soft, nontender, no hepatosplenomegaly Musculoskeletal Weakness noted in the RUE with poor email designer strength. Weakness worsens distally with 3/5 wrist flexion and extension, improved slightly today. Unable to abduction or adduct fingers and unable to keep fingers abducted after passive assistance. Elbow extension 3+ and elbow flexion 3-. Sensation normal. 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 Acute Dehydration and Severe Protein-Calorie Malnutrition -Likely the cause of patients initial syncopal episode and over all fatigue -IVF rehydration with NSS+KCl 20meq 100ml/hr -Recommend that patient get at least 60 oz of fluids and 1500 calories daily minimum upon discharge -Dietary consult was requested Hypokalemia -Repleted in ED and upon admission -Repleted again on day of discharge with 40meq Klor-con in AM and at Noon. -Continue home supplementation as prescribed RUE Weakness and pain -Etiology at this time still nebulous, differential includes Stroke, Metastatic lesion, Shingles associated radiculitis -Shingles adequately treated with Valacyclovir x 1 week, no rash still visible -MRI Brain and Neck negative for acute stroke or metastatic lesions -Pain control with Oxycodone and Gabapentin -Curbside Neurology, recommend outpatient EMG -Discussed with nurse navigator to assist in getting patient set up with Neurology and to have EMG conducted after discharge. Stage IV appendiceal cancer -Will require rescheduling of chemotherapy Anxiety -Continued Sertraline -Continued Alprazolam (2) Severe protein-calorie malnutrition: (3) Acute dehydration: (4) Hypokalemia: Keesha Anna is a 69 year old female with stage IV cancer, HTN, HLD, anxiety, and shingles who presents with weakness and pain of the upper extremities and syncope who was found to have a potassium of 2.2 in the setting of reduced PO intake 2/2 poor appetite. Upper extremity weakness and pain, hypokalemia: likely hypokalemia secondary to poor PO intake -received 1L bolus of normal saline in ED -received 60mEq potassium chloride in ED -normal saline 100mL/hr (1.25x maintenance for her weight of 90lbs) with 20mEq KCl q10hr IV -admit to inpatient -acetaminophen 650mg PO q4hr PRN -BMP qAM Stage IV appendiceal cancer -today's chemotherapy was missed and needs to be rescheduled -continue oxycodone 5mg PO q6hr PRN -acetaminophen 650mg PO q4hr PRN Shingles: 7-day course of valacyclovir was to be completed today -finish course, then discontinue Anxiety -c/w sertraline 100mg PO qhs -c/w alprazolam 0.25mg PO bid PRN Diet: heart healthy Code status: DNR/DNI per patient interview in the ED, I could not find the advanced directive in our files DVT prophylaxis: lovenox 30mg qPM Dispo: admit to inpatient Total Time Total Time Spent Total Time Spent (In Minutes): <30 Discharge Plan Discharge Items Patient Disposition: Home - Self-Care Reason For Visit: SYNCOPE, HYPOKALEMIA Discharge Diagnosis: Dehydration, Hypokalemia, R Hand Weakness Activity: Resume your previous activity Non-emergency contact: Primary Care Provider Call non-emergency contact if: your symptoms worsen Follow-up/Referrals: Martell Esparza MD [Primary Care Provider] - Hamilton De Jesus MD [Physician] - (Dr. De Jesus's office will call you with an appointment as they are currently booked until June. If you don't hear a nything from them within 5-7 days, please call his office at [phone].) Diet: Regular Addtl Attending Provider Instructions: Ms. Anna, It was our pleasure caring for you at [facility] from 04/06/20 to 04/08/20. Please see below for a summary of your care and future instructions. Acute Dehydration and Severe Protein-Calorie Malnutrition -Being acutely dehydrated was likely the cause of your initial syncopal episode and over all fatigue. -You were rehydrated by intravenous fluids while inpatient -We recommend that you get at least 60oz of fluids and 1500 calories daily as a minimum -Please also follow up with your Primary Care Doctor within the next week in regards to your recent hospital stay. Hypokalemia -You were found to have a very low potassium level upon admission and while in the ED -You were given potassium supplements which helped raised your potassium levels to normal -Please continue to take your home potassium supplements in addition to staying hydrated and meeting your calorie goals after discharge. RUE Weakness and pain -While inpatient you had mentioned about R arm weakness and pain -While we believe the pain is likely still a sequela from your recent Shingles, the exact cause of your weakness is still unknown. -The differential includes stroke, metastatic lesions due to your appendiceal cancer, or a shingles associated radiculitis. -We had spoken with our neurologist Dr. De Jesus about this and he had recommended an EMG in the outpatient setting. -An appointment will be made for you to meet with Neurology to have this completed, please see the consult above. -Please continue your home medications as prescribed. Appendiceal Cancer -Please reschedule your chemotherapy appointment as you were in the hospital during your last scheduled appointment. Pending Studies at Discharge: No Stand-Alone Forms: My [employer], Smoking Cessation Medications and DC Order Prescriptions: Continued gabapentin 100 mg capsule 200 mg PO BID Qty: 60 RF: 2 oxycodone 5 mg tablet 5 mg PO Q4H PRN (Reason: pain) Qty: 30 RF: 0 alprazolam [Xanax] 0.25 mg tablet 0.25 mg PO BID PRN (Reason: Anxiety) RF: 0 sertraline 100 mg tablet 100 mg PO HS RF: 0 potassium chloride 20 mEq tablet extended release 20 meq PO QAM RF: 0 Discontinued valacyclovir [Valtrex] 500 mg tablet 500 mg PO TID RF: 0 Discharge Orders: Discharge Order (Routine); Ordered 04/08/20 Ordered By: Morgan Lee Admission Data Admit Date/Time: 04/06/20 18:54 Attending Provider: Mina Hernadez Admit Provider: Casey Sena Primary Care Provider: Martell Esparza Other Providers: Martell Gama ; Casey Sena ; [facility] Other Interventions: Discharge Summary Assessment (RN) Last Done: 04/08/20 15:15 Supervising Physician Co-Signing Physician Notes I personally examined the patient and verified all nicolas points of history and exam, discussed case, and agree with decision making with Dr Lee. feeling better except R arm weakness. discussed fluid intake and calories again - wtih pt and . vitals noted nad heent nc at mmm breathing unlabored no accessory muscles good effort skin no rashes no pallor or icterus. ongoing R arm weakness arm weakness - ?shingles sequellae vs other. no atrophy but w significant weakness - next step EMG/NCV - will ask to have this arranged chika as outpt (case management/neuro office working together, pt aware) severe protein/calorie malnutrition/dehydration/hypokalemia - IVF, supplement K as inpt treatment. extensive discussion on calorie needs/goals, fluid needs/goals - and the critical need to meet those goals daily//discussed tools to help track calorie input / fluid intake to better gauge success stable for home, otherwise as above Resident Activity Tracking Resident Involvement: Resident Care Provided Care Provided: Adult Hospital Medicine
[2020-04-08] MEDS ORDERED: POTASSIUM CHLORIDE 20 MEQ TABCR PO ONE (12:00)
--- NOTE | 2020-04-08 17:14 | Billing Data ---
Date of Service April 08, 2020 Coding Level of Care Code D/C Day Management <30 mins
== END 2020-04-08 15:39 | disposition home health service (06) | DRG 640 ==
LOC: ED 13:59 → 2N 18:54 → SUATTDRO 18:54 → 2N 19:39